=== PATIENT | female | born 2000 | race Caucasian/White ===

== ENCOUNTER 2020-07-01 13:40 | Inpatient (IN) | payer BC, OTHER, SELFPAY ==
[2020-07-01 14:12] VITALS: BP 135/87; BP 147/78; PULSE 120; PULSE 126; RESP 18; TEMP 36.9; O2SAT 97; BMI 22.4
--- NOTE | 2020-07-01 14:25 | PC.NURSE ---
PT CALM,COOPERATIVE,TEARFUL. CONCERNED ABOUT MISSING CLASSES. DENIES SI/HI AT THIS TIME. DEALING WITH DEPRESSION/ANXIETY FOR 6 YEARS
--- NOTE | 2020-07-01 14:29 | PC.NURSE ---
PT SEEN AT HER HOUSE BY CINDY. IS A BEDSEARCH
--- NOTE | 2020-07-01 15:22 | PC.NURSE ---
Report received. Pt sitting in bed at current. No complaints at this time. Calm and cooperative. Waiting to be medically cleared.
--- NOTE | 2020-07-01 15:22 | PC.NURSE ---
Delilah phone number [phone]
--- NOTE | 2020-07-01 16:01 | ED.PSYCH ---
HPI - Psych General Chief Complaint: Psychiatric Symptoms Stated Complaint: si/crisis Time Seen by Provider: 07/01/20 14:10 Source: patient Mode of arrival: ambulatory Limitations: no limitations History of Present Illness HPI Narrative: Patient presents to the ED for depression. Patient was seen by [facility] in the field to be admitted to for psych admission. Patient states yesterday in the night time she drank a bottle of wine and Percocet. MD complaint: feels depressed Related Data Allergies Allergy/AdvReac Type Severity Reaction Status Date / Time No Known Allergies Allergy Verified 07/01/20 14:29 Review of Systems Review of Systems: Yes all other systems are reviewed and are negative Constitutional: Constitutional: Reports as per HPI and Reports no additional constitutional complaints Eyes: Eyes: Reports as per HPI and Reports no additional eye complaints ENT: Reports system reviewed and no additional complaints, except as documented and Reports as per HPI Cardiovascular: Cardiovascular: Reports as per HPI and Reports no additional cardiovascular complaints Respiratory: Respiratory: Reports as per HPI and Reports no additional respiratory complaints Gastrointestinal: Gastrointestinal: Reports as per HPI and Reports no additional gastrointestinal complaints Genitourinary: Genitourinary: Reports no additional female genitourinary complaints and Reports as per HPI Musculoskeletal: Musculoskeletal: Reports no additional musculoskeletal complaints and Reports as per HPI Neurologic: Reports system reviewed and no additional complaints, except as documented and Reports as per HPI Psychiatric: Psychiatric: Reports no additional psychiatric complaints and Reports as per HPI PMF Past Medical History Medical History (Updated 07/01/20 @ 22:07 by HECTOR Iglesias) Anxiety Depression Social History Social History Alcohol intake: unknown Smoking Status: Never smoker Use of substances other than those prescribed or required for medical reasons: No Advance Directives: No Advance Directives Information Provided: No Physical Exam Vital Signs: Vital Signs: Last Vital Signs Temp 98.6 F 07/01/20 21:24 Pulse 102 H 07/01/20 21:24 Resp 15 07/01/20 21:24 BP 113/74 07/01/20 21:24 Pulse Ox 98 07/01/20 21:24 Body Mass Index 22.4 Const: General: cooperative, healthy appearing, comfortable, no acute distress, well developed, alert, awake and Physically active Orientation/consciousness: patient oriented x3 HENMT: Head: Yes normal to inspection, Yes No palpable skull fracture present, Yes normocephalic, Yes atraumatic, No abrasion, No Guerrier's sign, No contusion, No cranial bruits, No hematoma, No laceration, No occipital foramen tenderness, No palpable skull fracture, No raccoon eyes, No scalp lesion, No scalp tenderness, No Temporal artery tenderness present and No periorbital ecchymosis Eyes: General: appearance normal, both eyes and all related structures Neck: Neck: Yes normal visual inspection, Yes full ROM, Yes no lymphadenopathy, Yes no meningeal signs, Yes trachea midline, Yes supple and No tender Chest: Chest palpation & inspection: normal inspection of the chest and normal palpation of entire chest wall Resp: Effort & Inspection: normal respiratory effort and able to speak in complete sentences Auscultation: clear to auscultation bilaterally Cardio: Jugular venous distension: no JVD Heart sounds: S1 normal heart sound present and S2 normal heart sound present GI: Inspection: Yes normal to inspection and No abdominal wall ecchymosis Palpation (GI): Soft to palpation, not firm, nontender, no guarding and not rigid : General: No CVA tenderness and Yes no CVA tenderness Back/Spine/Pelvis: Back: no CVA tenderness, No CVA tenderness and No back tenderness Skin: General skin exam: no rashes or lesions noted and elasticity normal Neuro: General: patient oriented x3, no meningeal signs and CN's II-XI intact bilaterally Cranial nerves: Yes CN's II-XII intact bilaterally Extrem: General: Yes normal to inspection and Yes full ROM Psych: Other: Patient is depressed. Patient denies any active suicidal/homicidal thoughts Appearance: grossly normal, well kempt and not disheveled Course Course Course Narrative: Patient will have labs done and being Direct admit to . Reevaluation(s) Reevaluation #1: Patient labs normal. COVID swab negative. Patient waiting for bed. Sign-out and INTERNET ARCHITECT Candy Time: 22:06 MDM - Psych MDM Narrative Medical decision making narrative: Depression Lab Data Result diagrams: 07/01/20 15:51 07/01/20 15:51 Labs: Lab Results 07/01/20 07/01/20 07/01/20 Range/Units 15:51 15:51 15:51 WBC 12.7 H (4.8-10.8) X10*3/uL RBC 4.70 (4.20-5.50) X10*6/uL Hgb 13.9 (12.0-16.0) g/dl Hct 41.7 (37-47) % MCV 88.7 (80-98) fL MCH 29.6 (27.0-33.0) pg MCHC 33.3 (31.0-35.0) g/dl RDW 11.7 (11.0-16.0) % Plt Count 310 (160-400) X10*3/uL MPV 9.4 (9.4-12.3) fL Immature Gran % (Auto) 0.2 (0.0-0.4) % Neut % (Auto) 88.3 H (45-73) % Lymph % (Auto) 6.9 L (20-40) % Bartholomew % (Auto) 4.3 (2-11) % Eos % (Auto) 0.1 (0-4) % Baso % (Auto) 0.2 (0-2) % Lymph # (Auto) 0.9 L (1.2-4.9) X10*3/uL Bartholomew # (Auto) 0.6 (0.1-1.2) X10*3/uL Eos # (Auto) 0.0 (0.0-0.4) X10*3/uL Baso # (Auto) 0.0 (0.0-0.2) X10*3/uL Abs Immat Gran (auto) 0.03 (0.00-0.03) X10*3/uL Absolute Neuts (auto) 11.2 H (2.0-8.3) X10*3/uL Absolute Nucleated RBC 0.000 (0.0-0.012) X10*3/uL Nucleated RBC % (auto) 0.0 (0.0-0.2) /100WBC Sodium 139 (135-145) mmol/L Potassium 4.4 (3.3-5.1) mmol/L Chloride 104 (96-108) mmol/L Carbon Dioxide 22 (22-29) mmol/L Anion Gap 17 (12-20) BUN 10 (9-16) mg/dL Creatinine 0.63 (0.5-1.4) mg/dL Estim Creat Clear Calc 103.1 Estimated GFR > 60 Random Glucose 86 (60-115) mg/dL Calcium 9.3 (8.4-10.2) mg/dL Total Bilirubin 0.5 (0.0-1.0) mg/dL Direct Bilirubin < 0.2 (0.0-0.5) mg/dL AST 25 (5-31) U/L ALT 14 (0-31) U/L Alkaline Phosphatase 81 (39-117) U/L Total Protein 8.3 H (6.5-8.0) g/dL Albumin 4.9 (3.5-5.0) g/dL Urine Color Urine Appearance Urine pH (5.0-8.0) Ur Specific Osprey (1.005-1.025) Urine Protein (NEG-TRACE) MG/DL Urine Glucose (UA) (NEG) MG/DL Urine Ketones (NEG) MG/DL Urine Blood (NEG) Urine Nitrite (NEG) Ur Leukocyte Esterase (NEG) Urine Test (NEGATIVE) Urine Opiates Screen (Not Detect) Ur Barbiturates Screen (Not Detect) Ur Phencyclidine Scrn (Not Detect) Ur Amphetamines Screen (Not Detect) U Benzodiazepines Scrn (Not Detect) Urine Cocaine Screen (Not Detect) U Marijuana (THC) Screen (Not Detect) Ethyl Alcohol < 10 mg/dL COVID-19 (KIM) (Negative) COVID-19 Clin Com 07/01/20 07/01/20 07/01/20 Range/Units 16:41 17:17 17:17 WBC (4.8-10.8) X10*3/uL RBC (4.20-5.50) X10*6/uL Hgb (12.0-16.0) g/dl Hct (37-47) % MCV (80-98) fL MCH (27.0-33.0) pg MCHC (31.0-35.0) g/dl RDW (11.0-16.0) % Plt Count (160-400) X10*3/uL MPV (9.4-12.3) fL Immature Gran % (Auto) (0.0-0.4) % Neut % (Auto) (45-73) % Lymph % (Auto) (20-40) % Bartholomew % (Auto) (2-11) % Eos % (Auto) (0-4) % Baso % (Auto) (0-2) % Lymph # (Auto) (1.2-4.9) X10*3/uL Bartholomew # (Auto) (0.1-1.2) X10*3/uL Eos # (Auto) (0.0-0.4) X10*3/uL Baso # (Auto) (0.0-0.2) X10*3/uL Abs Immat Gran (auto) (0.00-0.03) X10*3/uL Absolute Neuts (auto) (2.0-8.3) X10*3/uL Absolute Nucleated RBC (0.0-0.012) X10*3/uL Nucleated RBC % (auto) (0.0-0.2) /100WBC Sodium (135-145) mmol/L Potassium (3.3-5.1) mmol/L Chloride (96-108) mmol/L Carbon Dioxide (22-29) mmol/L Anion Gap (12-20) BUN (9-16) mg/dL Creatinine (0.5-1.4) mg/dL Estim Creat Clear Calc Estimated GFR Random Glucose (60-115) mg/dL Calcium (8.4-10.2) mg/dL Total Bilirubin (0.0-1.0) mg/dL Direct Bilirubin (0.0-0.5) mg/dL AST (5-31) U/L ALT (0-31) U/L Alkaline Phosphatase (39-117) U/L Total Protein (6.5-8.0) g/dL Albumin (3.5-5.0) g/dL Urine Color Urine Appearance Urine pH (5.0-8.0) Ur Specific Osprey (1.005-1.025) Urine Protein (NEG-TRACE) MG/DL Urine Glucose (UA) (NEG) MG/DL Urine Ketones (NEG) MG/DL Urine Blood (NEG) Urine Nitrite (NEG) Ur Leukocyte Esterase (NEG) Urine Test NEGATIVE (NEGATIVE) Urine Opiates Screen POSITIVE H (Not Detect) Ur Barbiturates Screen Not Detected (Not Detect) Ur Phencyclidine Scrn Not Detected (Not Detect) Ur Amphetamines Screen Not Detected (Not Detect) U Benzodiazepines Scrn Not Detected (Not Detect) Urine Cocaine Screen Not Detected (Not Detect) U Marijuana (THC) Screen Not Detected (Not Detect) Ethyl Alcohol mg/dL COVID-19 (KIM) Negative (Negative) COVID-19 Clin Com See Note 07/01/20 Range/Units 17:17 WBC (4.8-10.8) X10*3/uL RBC (4.20-5.50) X10*6/uL Hgb (12.0-16.0) g/dl Hct (37-47) % MCV (80-98) fL MCH (27.0-33.0) pg MCHC (31.0-35.0) g/dl RDW (11.0-16.0) % Plt Count (160-400) X10*3/uL MPV (9.4-12.3) fL Immature Gran % (Auto) (0.0-0.4) % Neut % (Auto) (45-73) % Lymph % (Auto) (20-40) % Bartholomew % (Auto) (2-11) % Eos % (Auto) (0-4) % Baso % (Auto) (0-2) % Lymph # (Auto) (1.2-4.9) X10*3/uL Bartholomew # (Auto) (0.1-1.2) X10*3/uL Eos # (Auto) (0.0-0.4) X10*3/uL Baso # (Auto) (0.0-0.2) X10*3/uL Abs Immat Gran (auto) (0.00-0.03) X10*3/uL Absolute Neuts (auto) (2.0-8.3) X10*3/uL Absolute Nucleated RBC (0.0-0.012) X10*3/uL Nucleated RBC % (auto) (0.0-0.2) /100WBC Sodium (135-145) mmol/L Potassium (3.3-5.1) mmol/L Chloride (96-108) mmol/L Carbon Dioxide (22-29) mmol/L Anion Gap (12-20) BUN (9-16) mg/dL Creatinine (0.5-1.4) mg/dL Estim Creat Clear Calc Estimated GFR Random Glucose (60-115) mg/dL Calcium (8.4-10.2) mg/dL Total Bilirubin (0.0-1.0) mg/dL Direct Bilirubin (0.0-0.5) mg/dL AST (5-31) U/L ALT (0-31) U/L Alkaline Phosphatase (39-117) U/L Total Protein (6.5-8.0) g/dL Albumin (3.5-5.0) g/dL Urine Color YELLOW Urine Appearance CLEAR Urine pH 6.0 (5.0-8.0) Ur Specific Osprey 1.025 (1.005-1.025) Urine Protein NEG (NEG-TRACE) MG/DL Urine Glucose (UA) NEG (NEG) MG/DL Urine Ketones 40 (NEG) MG/DL Urine Blood NEG (NEG) Urine Nitrite NEG (NEG) Ur Leukocyte Esterase NEG (NEG) Urine Test (NEGATIVE) Urine Opiates Screen (Not Detect) Ur Barbiturates Screen (Not Detect) Ur Phencyclidine Scrn (Not Detect) Ur Amphetamines Screen (Not Detect) U Benzodiazepines Scrn (Not Detect) Urine Cocaine Screen (Not Detect) U Marijuana (THC) Screen (Not Detect) Ethyl Alcohol mg/dL COVID-19 (KIM) (Negative) COVID-19 Clin Com Discharge Plan Discharge Clinical Impression: Depression
[2020-07-01 16:02] LABS: Basophils Percent Auto 0.2 % (0-2); Eosinophils Percent Auto 0.1 % (0-4); Hematocrit 41.7 % (37-47); Hemoglobin 13.9 g/dl (12.0-16.0); Imm Gran Abs Auto 0.03 X10*3/uL (0.00-0.03); Imm Gran Pct Auto 0.2 % (0.0-0.4); Lymphocytes Absolute Auto 0.9 X10*3/uL (1.2-4.9); Lymphocytes Percent Auto 6.9 % (20-40); MANUAL DIFF FLAG NO; Mean Corpuscular HGB Conc 33.3 g/dl (31.0-35.0); Mean Corpuscular Hemoglobin 29.6 pg (27.0-33.0); Mean Corpuscular Volume 88.7 fL (80-98); Mean Platelet Volume 9.4 fL (9.4-12.3); Monocytes Absolute Auto 0.6 X10*3/uL (0.1-1.2); Monocytes Percent Auto 4.3 % (2-11); Neutrophils Absolute Auto 11.2 X10*3/uL (2.0-8.3); Neutrophils Percent Auto 88.3 % (45-73); Platelet Count 310 X10*3/uL (160-400); Red Cell Distribution Width 11.7 % (11.0-16.0); White Blood Count 12.7 X10*3/uL (4.8-10.8)
[2020-07-01 16:35] LABS: Alanine Aminotransferase 14 U/L (0-31); Albumin Level 4.9 g/dL (3.5-5.0); Alkaline Phosphatase 81 U/L (39-117); Anion Gap 17 (12-20); Aspartate Amino Transferase 25 U/L (5-31); Bilirubin Direct < 0.2 mg/dL (0.0-0.5); Bilirubin Total 0.5 mg/dL (0.0-1.0); Blood Urea Nitrogen 10 mg/dL (9-16); Calcium 9.3 mg/dL (8.4-10.2); Carbon Dioxide 22 mmol/L (22-29); Chloride 104 mmol/L (96-108); Creatinine Clr Calc Pharmacy 103.1; Estimated Glomerular Filt Rate > 60; Glucose Random 86 mg/dL (60-115); Potassium 4.4 mmol/L (3.3-5.1); Sodium 139 mmol/L (135-145); Total Protein 8.3 g/dL (6.5-8.0)
[2020-07-01 16:40] LABS: Ethanol < 10 mg/dL
[2020-07-01 17:28] LABS: COVID-19 Test Negative (Negative); IDNOW Serial# 9DD0AD1C
[2020-07-01 17:35] LABS: Glucose Urine UA NEG (NEG); Leukocyte Esterase Urine NEG (NEG); Nitrite Urine NEG (NEG); Specific Gravity - Urine 1.025 (1.005-1.025); Urine Blood NEG (NEG); Urine Ketones 40 MG/DL (NEG); Urine Protein NEG (NEG-TRACE)
[2020-07-01 17:38] LABS: Appearance Urine CLEAR; Color Urine YELLOW; UPreg QC Valid YES; Urine Pregnancy NEGATIVE (NEGATIVE)
[2020-07-01 17:55] LABS: Amphetamine Screen Urine Not Detected (Not Detect); Barbiturates, Urine Not Detected (Not Detect); Benzodiazepines Screen Urine Not Detected (Not Detect); Cannabinoid Screen Urine Not Detected (Not Detect); Cocaine Screen Urine Not Detected (Not Detect); Opiate Screen Urine POSITIVE (Not Detect); Phencyclidine Screen Urine Not Detected (Not Detect)
[2020-07-01 18:28] VITALS: BP 116/83; PULSE 95; RESP 18; TEMP 37.5; O2SAT 97
--- NOTE | 2020-07-01 19:39 | PC.NURSE ---
Patient in bed calm and quiet, was on phone briefly talking to her mother, per report patient is going to [facility], no update so far from [facility], denied distress, will continue to monitor.
[2020-07-01 21:24] VITALS: BP 113/74; PULSE 102; RESP 15; TEMP 37; O2SAT 98
--- NOTE | 2020-07-02 07:45 | PC.NURSE ---
Report received from CAROLINA Shukla. Pt resting, resp unlabored.
[2020-07-02 08:50] VITALS: BP 115/70; PULSE 95; RESP 16; TEMP 36.8; O2SAT 98
[2020-07-02 10:00] VITALS: RESP 20
--- NOTE | 2020-07-02 11:24 | PC.NURSE ---
Pt awakened to evaluate. Pt appears slightly drowsy and reports feeling sleepy but denies any other concerns at this time.
[2020-07-02 12:00] VITALS: RESP 20
--- NOTE | 2020-07-02 12:22 | PC.NURSE ---
Report given to CAROLINA Valentine on [facility]
--- NOTE | 2020-07-02 14:26 | PC.NURSE ---
CARE team in transfer pt to [facility]. Pt alert, cooperative no concerns reported on transfer.
[2020-07-02 16:16] VITALS: BMI 22.9
--- NOTE | 2020-07-02 16:20 | PC.ADMIT ---
19 year old female DX: Major Depressive Disorder, single episode, severe. A+O x3, easily engaged, full range of affect. Good eye contact, good attn to ADL. Referred for admission by N/CARE team. Arrived to hospital 07/01/2020 following suicide attempt by ingesting 4 Percocet and 3/4 bottle of wine. Patient called 911 following overdose. Patient reports this is 1st hospital admission, no psychiatrist at this time, has engaged a therapist however has only had a couple of contacts through on line. Not currently on any medications. Continues to report suicidal thoughts, described as passive I don't want to live but I don't want to kill myself either . Reports multiple stressors including remote learning, impaired support system, ongoing depression and anxiety. Thoughts clear, linear and organized. Denies perceptual disturbances, denies A/V hallucinations. Denies substance abuse, tox screen + for opiate. COVID negative. No medical problems, NKA, NKDA. Oriented to unit, placed on 15 minute safety checks. See crisis evaluation / nursing assessment for further details.
[2020-07-02 18:00] VITALS: BP 125/78; PULSE 81; RESP 16; TEMP 36.8; O2SAT 95
[2020-07-03 06:35] VITALS: BP 113/61; PULSE 77; RESP 16; TEMP 36.6; O2SAT 98
[2020-07-03 08:14] LABS: Estimated Average Glucose 91 mg/dL; Hemoglobin A1c % 4.8 %
[2020-07-03 08:29] LABS: Cholesterol 157 mg/dL; HDL Cholesterol 42 mg/dL; LDL Cholesterol Calculated 104 mg/dl; Triglycerides 57 mg/dL
[2020-07-03 08:51] LABS: Free T4 (Free Thyroxine) 0.94 ng/dL (0.71-1.85); Thyroid Stimulating Hormone 1.97 uIU/mL (0.32-4.0)
[2020-07-03 09:04] LABS: Folate 16.9 ng/mL (> or = 4.0); Vitamin B12 271 pg/mL (200-900)
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
[2020-07-03 18:00] VITALS: BP 131/71; PULSE 106; TEMP 36.6
[2020-07-04 06:35] VITALS: BP 112/69; PULSE 84; RESP 16; TEMP 37.1; O2SAT 98
[2020-07-04] MEDS: hydrOXYzine HCL 25 MG TABLET PO ×2 (08:46→22:20)
[2020-07-04] MEDS: Sertraline HCL 25 MG TABLET PO (08:46)
--- NOTE | 2020-07-04 13:35 | HO.PSYCHPN ---
Subjective Subjective Date of Service: 07/04/20 Reason For Visit: DEPRESSION Subjective Notes: Conditional Voluntary Interim History: Pt continues to endorse depressed mood. She also endorses anhedonia, low energy. She reports sleeping better last night. She does report decrease suicidal thoughts and denies any plan or intent. She had hydroxyzine this morning for anxiety but too sedating. We discussed increasing sertraline to 50mg po daily. MSE Appearance: casually groomed, fair hygiene, in NAD Behavior: calm, cooperative Psychomotor: no agitation or retardation noted Speech: clear, normal rate/rhythm/volume, spontaneous TP: linear TC: no signs of psychosis, feeling depressed, passive SI, no plan Mood: depressed Affect:slightly brighter than reported mood AH/VH:none Delusions:none Insight/judgment:fair x 2. Memory/cog: alert, oriented x 3. grossly intact to conversational testing. Medication Compliance: Yes Side effects from medications: No Review of Systems Review of Systems Yes all other systems are reviewed and are negative (denies) Constitutional: Reports as per HPI and Reports no additional constitutional complaints Eyes: Reports as per HPI and Reports no additional eye complaints Reports system reviewed and no additional complaints, except as documented and Reports as per HPI Cardiovascular: Reports as per HPI and Reports no additional cardiovascular complaints Respiratory: Reports as per HPI and Reports no additional respiratory complaints Gastrointestinal: Reports as per HPI and Reports no additional gastrointestinal complaints Musculoskeletal: Reports no additional musculoskeletal complaints and Reports as per HPI Reports system reviewed and no additional complaints, except as documented, Reports as per HPI and Reports behavioral changes Psychiatric: Reports no additional psychiatric complaints, Reports as per HPI, Reports abnormal sleep pattern, Reports anxiety, Reports behavioral changes, Reports change in appetite, Reports depression, Reports difficulty concentrating, Reports anhedonia, Reports panic attacks and Reports suicidal ideation (s/p attempt) Diagnostics Vital Signs (24Hr): Vital Signs - 24 hr 07/03/20 18:00 07/04/20 06:35 Temperature 98 F 98.8 F Pulse Rate 106 H 84 Respiratory Rate 16 Blood Pressure 131/71 112/69 Pulse Oximetry 98 Body Mass Index 22.9 Labs Results: 07/01/20 15:51 07/01/20 15:51 Labs: Laboratory Results - last 48 hr 07/03/20 07/03/20 07/03/20 07:54 07:54 07:54 Estimat Average Glucose 91 Hemoglobin A1c % 4.8 Triglycerides 57 Cholesterol 157 LDL Cholesterol, Calc 104 HDL Cholesterol 42 Vitamin B12 271 Folate 16.9 TSH 1.97 Free T4 0.94 Medications Medications Current Medications Generic Name Dose Route Start Last Admin Trade Name Freq PRN Reason Stop Dose Admin Acetaminophen 650 mg 07/02/20 13:01 Acetaminophen 325 Mg Tablet PO Q6H PRN Headache/Pain Mild Scale (1-3) Al Hydroxide/Mg Hydroxide 30 ml 07/02/20 13:01 Magnesium Hydrox/Alum Hydrox 30 Ml Oral.Susp PO Q6H PRN Heartburn/Nausea Hydroxyzine HCl 25 mg 07/02/20 13:01 Hydroxyzine Hcl 25 Mg Tablet PO BEDTIME PRN Anxiety Magnesium Hydroxide 30 ml 07/02/20 13:01 Milk Of Magnesia 30 Ml Oral.Susp PO DAILY PRN Constipation Sertraline HCl 25 mg 07/04/20 09:00 07/04/20 08:46 Sertraline Hcl 25 Mg Tablet PO 25 mg DAILY ALIA Administration Trazodone HCl 50 mg 07/02/20 13:01 Trazodone Hcl 50 Mg Tablet PO BEDTIME PRN Insomnia Allergies Allergies Allergy/AdvReac Type Severity Reaction Status Date / Time No Known Allergies Allergy Verified 07/01/20 14:29 Assessment & Plan Assessment & Plan (1) Recurrent major depression-severe: Status: Acute Code(s): F33.2 - Major depressive disorder, recurrent severe without psychotic features Assessment and Plan: - increase Sertraline 50 mg daily -Hydroxyzine 25 mg bid prn anxiety (2) PTSD (post-traumatic stress disorder): Status: Acute Code(s): F43.10 - Post-traumatic stress disorder, unspecified Greater than 50% of the session was spent on counseling and/or coordination of care Reason for contiued inpatient stay Substantial Risk for: harm to self
[2020-07-04 18:00] VITALS: BP 119/66; PULSE 99; TEMP 36.6
[2020-07-05 06:15] VITALS: BP 117/65; PULSE 75; RESP 16; TEMP 36.4; O2SAT 98
[2020-07-05] MEDS: Sertraline HCL 50 MG TABLET PO (09:02)
--- NOTE | 2020-07-05 11:01 | HO.PSYCHPN ---
Subjective Subjective Date of Service: 07/05/20 Reason For Visit: DEPRESSION Interim History: Pt continues to endorse depressed mood. She also endorses anhedonia, low energy. She reports sleeping better last night. She does report decrease suicidal thoughts and denies any plan or intent. She had hydroxyzine this morning for anxiety but too sedating. We discussed increasing sertraline to 50mg po daily. MSE Appearance: casually groomed, fair hygiene, in NAD Behavior: calm, cooperative Psychomotor: no agitation or retardation noted Speech: clear, normal rate/rhythm/volume, spontaneous TP: linear TC: no signs of psychosis, feeling depressed, passive SI, no plan Mood: depressed Affect:slightly brighter than reported mood AH/VH:none Delusions:none Insight/judgment:fair x 2. Memory/cog: alert, oriented x 3. grossly intact to conversational testing. Review of Systems Review of Systems Yes all other systems are reviewed and are negative (denies) Constitutional: Reports as per HPI and Reports no additional constitutional complaints Eyes: Reports as per HPI and Reports no additional eye complaints Reports system reviewed and no additional complaints, except as documented and Reports as per HPI Cardiovascular: Reports as per HPI and Reports no additional cardiovascular complaints Respiratory: Reports as per HPI and Reports no additional respiratory complaints Gastrointestinal: Reports as per HPI and Reports no additional gastrointestinal complaints Musculoskeletal: Reports no additional musculoskeletal complaints and Reports as per HPI Reports system reviewed and no additional complaints, except as documented, Reports as per HPI and Reports behavioral changes Psychiatric: Reports no additional psychiatric complaints, Reports as per HPI, Reports abnormal sleep pattern, Reports anxiety, Reports behavioral changes, Reports change in appetite, Reports depression, Reports difficulty concentrating, Reports anhedonia, Reports panic attacks and Reports suicidal ideation (s/p attempt) Diagnostics Vital Signs (24Hr): Vital Signs - 24 hr 07/04/20 18:00 07/05/20 06:15 Temperature 98 F 97.5 F Pulse Rate 99 75 Respiratory Rate 16 Blood Pressure 119/66 117/65 Pulse Oximetry 98 Body Mass Index 22.9 Labs Results: 07/01/20 15:51 07/01/20 15:51 Medications Medications Current Medications Generic Name Dose Route Start Last Admin Trade Name Freq PRN Reason Stop Dose Admin Acetaminophen 650 mg 07/02/20 13:01 Acetaminophen 325 Mg Tablet PO Q6H PRN Headache/Pain Mild Scale (1-3) Al Hydroxide/Mg Hydroxide 30 ml 07/02/20 13:01 Magnesium Hydrox/Alum Hydrox 30 Ml Oral.Susp PO Q6H PRN Heartburn/Nausea Hydroxyzine HCl 25 mg 07/02/20 13:01 07/04/20 22:20 Hydroxyzine Hcl 25 Mg Tablet PO 25 mg BEDTIME PRN Administration Anxiety Magnesium Hydroxide 30 ml 07/02/20 13:01 Milk Of Magnesia 30 Ml Oral.Susp PO DAILY PRN Constipation Sertraline HCl 50 mg 07/05/20 09:00 07/05/20 09:02 Sertraline Hcl 50 Mg Tablet PO 50 mg DAILY ALIA Administration Trazodone HCl 50 mg 07/02/20 13:01 Trazodone Hcl 50 Mg Tablet PO BEDTIME PRN Insomnia Allergies Allergies Allergy/AdvReac Type Severity Reaction Status Date / Time No Known Allergies Allergy Verified 07/01/20 14:29 Assessment & Plan Assessment & Plan (1) Recurrent major depression-severe: Status: Acute Code(s): F33.2 - Major depressive disorder, recurrent severe without psychotic features Assessment and Plan: - Continue Sertraline 50 mg daily -Hydroxyzine 25 mg bid prn anxiety- too sedating (2) PTSD (post-traumatic stress disorder): Status: Acute Code(s): F43.10 - Post-traumatic stress disorder, unspecified Greater than 50% of the session was spent on counseling and/or coordination of care Reason for contiued inpatient stay Substantial Risk for: harm to self
[2020-07-05 18:00] VITALS: BP 134/77; PULSE 86; TEMP 37.1
[2020-07-05] MEDS: hydrOXYzine HCL 25 MG TABLET PO (22:49)
[2020-07-06 06:35] VITALS: BP 124/71; PULSE 80; RESP 14; TEMP 37.1; O2SAT 97
[2020-07-06] MEDS: Sertraline HCL 50 MG TABLET PO (08:33)
[2020-07-06] MEDS: Gabapentin 100 MG CAPSULE PO ×2 (13:37→22:02)
[2020-07-06] MEDS: Flu Vacc QS2020-21(6mos up)/PF 0.5 ML SYRINGE IM (16:34)
--- NOTE | 2020-07-06 17:34 | HO.PSYCHPN ---
Subjective Subjective Date of Service: 07/06/20 Reason For Visit: DEPRESSION Subjective Notes: Conditional Voluntary Interim History: Tolerating Sertraline which was titrated over the weekend. Anxiety remains high. Discussed Gabapentin titration. Finds hydroxyzine too sedating-review of clonidine and discussed sertraline being able to target anxiety however time is needed for efficacy. Discussed precipitants to attempt. Pt remains somewhat closed-discussed that sx have been present since age 13 and family was struggling with their own sx and did not have time to notice she was having difficulty. In addition, she attempted to hide this. Discussed mother calling her over the weekend to discuss her issues and concerns without focus being on pt. Medication Compliance: Yes Side effects from medications: No Attending Groups: Yes Review of Systems Review of Systems Yes all other systems are reviewed and are negative (denies) Psychiatric: Reports anxiety and Reports depression Mental Status Exam Mental Status Exam Patient Appearance: Appropriate Patient Orientation: Person, Place, Time and Situation Level of Consciousness: Alert Patient Behavior: Talkative, Anxious and Good Eye Contact Mood Description: Depressed and Anxious Affect Description: Flat Patient Cognition Impaired: No Ability to Follow Directions: Good Speech Pattern: Spontaneous Speech Memory Description: Intact Hallucinations: None Delusions: Not Present Thought Process: Intact Thought Content: positive for Intact, positive for Logical and positive for Suicidal Ideation (passive, no current plan or intent) Depressive Symptoms: Increased Anxiety, Insomnia, Difficulty Sleeping, Changes in Appetite, Loss of Int. in Activity, Hopelessness, Feelings of Guilt, Unhappiness, Increased Fatigue, Thoughts of /Suicide (passive) and Low Self Esteem Judgement: Fair Diagnostics Vital Signs (24Hr): Vital Signs - 24 hr 07/05/20 18:00 07/06/20 06:35 Temperature 98.8 F 98.7 F Pulse Rate 86 80 Respiratory Rate 14 Blood Pressure 134/77 124/71 Pulse Oximetry 97 Body Mass Index 22.9 Labs Results: 07/01/20 15:51 07/01/20 15:51 Medications Medications Current Medications Generic Name Dose Route Start Last Admin Trade Name Freq PRN Reason Stop Dose Admin Acetaminophen 650 mg 07/02/20 13:01 Acetaminophen 325 Mg Tablet PO Q6H PRN Headache/Pain Mild Scale (1-3) Al Hydroxide/Mg Hydroxide 30 ml 07/02/20 13:01 Magnesium Hydrox/Alum Hydrox 30 Ml Oral.Susp PO Q6H PRN Heartburn/Nausea Gabapentin 100 mg 07/06/20 12:00 07/06/20 13:37 Gabapentin 100 Mg Capsule PO 100 mg BID ALIA Administration Magnesium Hydroxide 30 ml 07/02/20 13:01 Milk Of Magnesia 30 Ml Oral.Susp PO DAILY PRN Constipation Sertraline HCl 50 mg 07/05/20 09:00 07/06/20 08:33 Sertraline Hcl 50 Mg Tablet PO 50 mg DAILY ALIA Administration Trazodone HCl 50 mg 07/02/20 13:01 Trazodone Hcl 50 Mg Tablet PO BEDTIME PRN Insomnia Allergies Allergies Allergy/AdvReac Type Severity Reaction Status Date / Time No Known Allergies Allergy Verified 07/01/20 14:29 Assessment & Plan Assessment & Plan (1) Recurrent major depression-severe: Status: Acute Code(s): F33.2 - Major depressive disorder, recurrent severe without psychotic features Assessment and Plan: Gabapentin 100 mg bid to target anxiety (2) PTSD (post-traumatic stress disorder): Status: Acute Code(s): F43.10 - Post-traumatic stress disorder, unspecified Greater than 50% of the session was spent on counseling and/or coordination of care Reason for contiued inpatient stay Substantial Risk for: harm to self, inability to function and rapid decompensation
[2020-07-06 18:00] VITALS: BP 131/79; PULSE 107; TEMP 36.4
[2020-07-07 06:30] VITALS: BP 124/66; PULSE 79; RESP 16; TEMP 36.5; O2SAT 98
[2020-07-07] MEDS: Sertraline HCL 50 MG TABLET PO (09:14)
[2020-07-07] MEDS: Gabapentin 100 MG CAPSULE PO ×2 (09:14→20:59)
--- NOTE | 2020-07-07 16:01 | HO.PSYCHPN ---
Subjective Subjective Date of Service: 07/07/20 Reason For Visit: DEPRESSION Subjective Notes: Conditional Voluntary Interim History: Anxiety sx persist. Tolerating gabapentin however believes she needs an increase Medication Compliance: Yes Side effects from medications: No Attending Groups: Yes Review of Systems Review of Systems Yes all other systems are reviewed and are negative Psychiatric: Reports anxiety and Reports depression Mental Status Exam Mental Status Exam Patient Appearance: Appropriate Patient Orientation: Person, Place, Time and Situation Level of Consciousness: Alert Patient Behavior: Appropriate and Talkative Mood Description: Anxious Affect Description: Anxious Patient Cognition Impaired: No Ability to Follow Directions: Good Speech Pattern: Spontaneous Speech Memory Description: Intact Hallucinations: None Delusions: Not Present Thought Process: Intact Thought Content: positive for Intact Depressive Symptoms: Increased Anxiety Judgement: Fair Diagnostics Vital Signs (24Hr): Vital Signs - 24 hr 07/06/20 18:00 07/07/20 06:30 Temperature 97.6 F 97.7 F Pulse Rate 107 H 79 Respiratory Rate 16 Blood Pressure 131/79 124/66 Pulse Oximetry 98 Body Mass Index 22.9 Labs Results: 07/01/20 15:51 07/01/20 15:51 Medications Medications Current Medications Generic Name Dose Route Start Last Admin Trade Name Freq PRN Reason Stop Dose Admin Acetaminophen 650 mg 07/02/20 13:01 Acetaminophen 325 Mg Tablet PO Q6H PRN Headache/Pain Mild Scale (1-3) Al Hydroxide/Mg Hydroxide 30 ml 07/02/20 13:01 Magnesium Hydrox/Alum Hydrox 30 Ml Oral.Susp PO Q6H PRN Heartburn/Nausea Gabapentin 100 mg 07/06/20 12:00 07/07/20 09:14 Gabapentin 100 Mg Capsule PO 100 mg BID ALIA Administration Magnesium Hydroxide 30 ml 07/02/20 13:01 Milk Of Magnesia 30 Ml Oral.Susp PO DAILY PRN Constipation Sertraline HCl 50 mg 07/05/20 09:00 07/07/20 09:14 Sertraline Hcl 50 Mg Tablet PO 50 mg DAILY ALIA Administration Trazodone HCl 50 mg 07/02/20 13:01 Trazodone Hcl 50 Mg Tablet PO BEDTIME PRN Insomnia Allergies Allergies Allergy/AdvReac Type Severity Reaction Status Date / Time No Known Allergies Allergy Verified 07/01/20 14:29 Assessment & Plan Assessment & Plan (1) PTSD (post-traumatic stress disorder): Status: Acute Code(s): F43.10 - Post-traumatic stress disorder, unspecified (2) Recurrent major depression-severe: Status: Acute Code(s): F33.2 - Major depressive disorder, recurrent severe without psychotic features Assessment and Plan: -Increase Gabapentin to 100 mg tid Greater than 50% of the session was spent on counseling and/or coordination of care Reason for contiued inpatient stay Substantial Risk for: harm to self and rapid decompensation
[2020-07-07 18:00] VITALS: BP 129/83; PULSE 108; TEMP 37.1
[2020-07-08 06:00] VITALS: BP 112/59; PULSE 99; TEMP 37.1
[2020-07-08] MEDS: Gabapentin 100 MG CAPSULE PO ×3 (08:37→23:05)
[2020-07-08] MEDS: Sertraline HCL 50 MG TABLET PO (08:37)
--- NOTE | 2020-07-08 14:35 | HO.PSYCHPN ---
Subjective Subjective Date of Service: 07/08/20 Reason For Visit: DEPRESSION Subjective Notes: Conditional Voluntary Interim History: Reports she is tolerating Sertraline with some nausea when taken on an empty stomach. Appetite overall is decreased. Some anxiety relief with Gabapentin, dose increase result today she is unsure of at this time. Reports sleep latency symptoms-1.15 hours to fall asleep-Sertraline in a.m. Declines Trazodone, Remeron, Seroquel, Benzo temporary addendum. Asked her to consider Abilify augment. Discussed team concerns with Rachell today-unwillingness to share with family her attempt and sx of depression to increase supports, plans to use her spring break next week to catch up on course work she is behind on,concern she is in a similiar place prior to her recent attempt. Pt agreed-states nothing has changed. 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 Reports feeling overwhelmed with peer judgment -constant worry that she is being evaluated by her age group for her clothing, looks, dialogue-discussed being almost immobile when at school-only made one friend, was unable to join groups of interest. Reports feeling stuck and SI has only changed in that it did not work, minimal relief and now the symptoms/issues/problems remain. Discussed who in the family can she identify as being closest to-she identifies her brother-she did text him about her situation but has not heard from him. She plans to call him today as it is his birthday-discussed approaching the subject of asking him if he could be a personal computer specialist for her to reach out to when feeling depressed, unsafe. She will explore and asks that we have an opportunity to talk with him if he is willing which we will arrange. Also, discussed her school performance-feeling overwhelmed with 5 courses and what is required-worries she will fail (on full scholarship). Discussed options of requesting [employer] with extension or withdrawl with return to campus in Fall 2020. Tearful with this discussion-believes she will need to withdraw. Asked her to find her advisors contact information and we will contact Adelso Ochoa on 07/09/20 with pt to discuss. Pt asking about discharge on Monday-asked her to continue to remain in pt until we have improved sx mgt, and to consider PHP upon discharge. Although difficult, pt reporting feeling some relief at the end of our discussion. Medication Compliance: Yes Side effects from medications: Yes (as noted) Attending Groups: Yes Review of Systems Review of Systems Yes all other systems are reviewed and are negative Psychiatric: Reports abnormal sleep pattern, Reports anxiety, Reports change in appetite, Reports depression, Reports difficulty concentrating, Reports hopelessness, Reports anhedonia and Reports suicidal ideation (persists-passive currently, but no real changes ) Mental Status Exam Mental Status Exam Patient Appearance: Appropriate Patient Orientation: Person, Place, Time and Situation Level of Consciousness: Alert Patient Behavior: Appropriate, Talkative, Passive, Anxious, Fearful, Fatigued, Distractible, Isolative, Good Eye Contact and Crying (tearful) Mood Description: Withdrawn, Depressed, Fearful, Anxious, Sad, Nervous and Apprehensive Affect Description: Flat Patient Cognition Impaired: No Ability to Follow Directions: Good Speech Pattern: Perseverating and Spontaneous Speech Memory Description: Intact Hallucinations: None Delusions: Not Present Perceptual Disturbances: Depersonalization and Derealization Thought Process: Distracted and Rumination Thought Content: positive for Obsessional Thoughts, positive for Circumstantial, positive for Perseveration, positive for Preoccupation, positive for Logical and positive for Suicidal Ideation (passive today) Depressive Symptoms: Increased Anxiety, Diff. Making Decisions, Difficulty Sleeping, Changes in Appetite, Feelings of Worthlessness, Hopelessness, Isolating-Friends/Family, Unhappiness and Thoughts of /Suicide (passive) Judgement: Fair Diagnostics Vital Signs (24Hr): Vital Signs - 24 hr 07/07/20 18:00 07/08/20 06:00 Temperature 98.8 F 98.8 F Pulse Rate 108 H 99 Blood Pressure 129/83 112/59 L Body Mass Index 22.9 Labs Results: 07/01/20 15:51 07/01/20 15:51 Medications Medications Current Medications Generic Name Dose Route Start Last Admin Trade Name Freq PRN Reason Stop Dose Admin Acetaminophen 650 mg 07/02/20 13:01 Acetaminophen 325 Mg Tablet PO Q6H PRN Headache/Pain Mild Scale (1-3) Al Hydroxide/Mg Hydroxide 30 ml 07/02/20 13:01 Magnesium Hydrox/Alum Hydrox 30 Ml Oral.Susp PO Q6H PRN Heartburn/Nausea Gabapentin 100 mg 07/07/20 21:00 07/08/20 08:37 Gabapentin 100 Mg Capsule PO 100 mg TID ALIA Administration Magnesium Hydroxide 30 ml 07/02/20 13:01 Milk Of Magnesia 30 Ml Oral.Susp PO DAILY PRN Constipation Sertraline HCl 50 mg 07/05/20 09:00 07/08/20 08:37 Sertraline Hcl 50 Mg Tablet PO 50 mg DAILY ALIA Administration Trazodone HCl 50 mg 07/02/20 13:01 Trazodone Hcl 50 Mg Tablet PO BEDTIME PRN Insomnia Allergies Allergies Allergy/AdvReac Type Severity Reaction Status Date / Time No Known Allergies Allergy Verified 07/01/20 14:29 Assessment & Plan Assessment & Plan (1) PTSD (post-traumatic stress disorder): Status: Acute Code(s): F43.10 - Post-traumatic stress disorder, unspecified Assessment and Plan: -Continue Gabapentin for anxiety mgt (2) Recurrent major depression-severe: Status: Acute Code(s): F33.2 - Major depressive disorder, recurrent severe without psychotic features Assessment and Plan: -Continue Sertralne-targeting depression, ptsd, social/general anxiety, obsessive sx -?Abilify trial- High suicide risk given combined symptoms, lack of feeling of value, lack of support and obsessive anxiety. -Pt to talk with her brother today for possible collateral. She is still thinking about allowing uncle to be informed about her attempt -Pt and software writer will contact her advisor on 07/08 to discuss options for withdrawl from courses or extensions for her to return in Fall 2020 from medical leave we will initiate tomorrow. Greater than 50% of the session was spent on counseling and/or coordination of care Reason for contiued inpatient stay Substantial Risk for: harm to self and rapid decompensation
[2020-07-08 17:00] VITALS: BP 136/86; PULSE 87; TEMP 36.8
[2020-07-08] MEDS: traZODone HCL 50 MG TABLET PO (23:08)
[2020-07-09 06:30] VITALS: BP 114/68; PULSE 85; RESP 16; TEMP 36.5; O2SAT 98
[2020-07-09] MEDS: Gabapentin 100 MG CAPSULE PO ×3 (08:59→21:15)
[2020-07-09] MEDS: Sertraline HCL 50 MG TABLET PO (08:59)
[2020-07-09 16:55] VITALS: BP 130/78; PULSE 79; TEMP 36.8
--- NOTE | 2020-07-09 17:45 | P.PNPSI_ITS ---
Subjective Subjective Date of Service: 07/10/20 Reason For Visit: DEPRESSION Subjective Notes: Conditional Voluntary Interim History: Pt willing to trial Abilify augmentation. Discussion with pt and Michela CHAVARRIA regarding requesting more time for course work completion. Pt's questions include effect on scholarship, what would pt need to do, what documenation would we need to provide. Message left for pt's advisor and drew, Adelso Ochoa [phone] to discuss options. Medication Compliance: Yes Side effects from medications: No Attending Groups: Yes Review of Systems Review of Systems Yes all other systems are reviewed and are negative Psychiatric: Reports anxiety, Reports depression, Reports difficulty concentrating, Reports hopelessness, Reports anhedonia, Reports panic attacks and Reports suicidal ideation Mental Status Exam Mental Status Exam Patient Appearance: Appropriate Patient Orientation: Person, Place, Time and Situation Level of Consciousness: Alert Patient Behavior: Appropriate, Talkative and Good Eye Contact Mood Description: Depressed and Anxious Affect Description: Flat Patient Cognition Impaired: No Ability to Follow Directions: Good Speech Pattern: Spontaneous Speech Memory Description: Intact Hallucinations: None Delusions: Not Present Thought Process: Intact Thought Content: positive for Intact, positive for Circumstantial, positive for Goal Oriented, positive for Perseveration and positive for Suicidal Ideation Depressive Symptoms: Increased Anxiety, Diff. Making Decisions, Hopelessness, Feelings of Guilt, Unhappiness, Increased Fatigue, Low Self Esteem and Difficulty Concentrating Judgement: Fair Diagnostics Vital Signs (24Hr): Vital Signs - 24 hr 07/09/20 06:30 07/09/20 16:55 Temperature 97.7 F 98.2 F Pulse Rate 85 79 Respiratory Rate 16 Blood Pressure 114/68 130/78 Pulse Oximetry 98 Body Mass Index 22.9 Labs Results: 07/01/20 15:51 07/01/20 15:51 Medications Medications Current Medications Generic Name Dose Route Start Last Admin Trade Name Freq PRN Reason Stop Dose Admin Acetaminophen 650 mg 07/02/20 13:01 Acetaminophen 325 Mg Tablet PO Q6H PRN Headache/Pain Mild Scale (1-3) Al Hydroxide/Mg Hydroxide 30 ml 07/02/20 13:01 Magnesium Hydrox/Alum Hydrox 30 Ml Oral.Susp PO Q6H PRN Heartburn/Nausea Aripiprazole 2 mg 07/09/20 21:00 Aripiprazole 2 Mg Tablet PO BEDTIME ALIA Gabapentin 100 mg 07/07/20 21:00 07/09/20 15:36 Gabapentin 100 Mg Capsule PO 100 mg TID ALIA Administration Magnesium Hydroxide 30 ml 07/02/20 13:01 Milk Of Magnesia 30 Ml Oral.Susp PO DAILY PRN Constipation Sertraline HCl 50 mg 07/05/20 09:00 07/09/20 08:59 Sertraline Hcl 50 Mg Tablet PO 50 mg DAILY ALIA Administration Trazodone HCl 50 mg 07/02/20 13:01 07/08/20 23:08 Trazodone Hcl 50 Mg Tablet PO 50 mg BEDTIME PRN Administration Insomnia Allergies Allergies Allergy/AdvReac Type Severity Reaction Status Date / Time No Known Allergies Allergy Verified 07/01/20 14:29 Assessment & Plan Assessment & Plan (1) PTSD (post-traumatic stress disorder): Status: Acute Code(s): F43.10 - Post-traumatic stress disorder, unspecified (2) Recurrent major depression-severe: Status: Acute Code(s): F33.2 - Major depressive disorder, recurrent severe without psychotic features Greater than 50% of the session was spent on counseling and/or coordination of care Reason for contiued inpatient stay Substantial Risk for: harm to self, inability to function and rapid decompen sation
[2020-07-09] MEDS: ARIPiprazole 2 MG TABLET PO (21:15)
[2020-07-10 06:00] VITALS: BP 113/64; PULSE 72; RESP 14; O2SAT 96
[2020-07-10] MEDS: Sertraline HCL 50 MG TABLET PO (08:42)
[2020-07-10] MEDS: Gabapentin 100 MG CAPSULE PO ×3 (08:42→22:24)
[2020-07-10] MEDS: Acetaminophen 325 MG TABLET 650 MG PO (10:29)
[2020-07-10] MEDS: LORazepam 1 MG TABLET PO (10:53)
--- NOTE | 2020-07-10 16:41 | P.PNPSI_ITS ---
Subjective Subjective Date of Service: 07/10/20 Reason For Visit: DEPRESSION Subjective Notes: Conditional Voluntary Interim History: Anxious prior to therapy appt with subsequent panic attack. Accepted lorazepam 1 mg x 1 dose. Believes anti-anxiety medication is not helping her currently. Michela CHAVARRIA and MARITZA Ochoa, pt's drew and advisor from [employer]. Pt has some options for extending deadlines for course work and does not have to take LOTTIE if she does not withdraw. Mr. Ochoa will begin to reach out to her professors to assess their availability to assist with this process. They are impressed with her work and want to be helpful in this instance. Pt sleeping later in the afternoon after therapy appt. Medication Compliance: Yes Side effects from medications: No Attending Groups: Yes Review of Systems Review of Systems Yes all other systems are reviewed and are negative Psychiatric: Reports anxiety, Reports depression, Reports difficulty concentrating, Reports hopelessness, Reports irritability, Reports anhedonia and Reports suicidal ideation Mental Status Exam Mental Status Exam Patient Appearance: Appropriate Patient Orientation: Person, Place, Time and Situation Level of Consciousness: Alert Patient Behavior: Restless, Anxious, Fearful and Distractible Mood Description: Depressed and Anxious Affect Description: Anxious Patient Cognition Impaired: No Ability to Follow Directions: Good Speech Pattern: Spontaneous Speech Memory Description: Intact Hallucinations: None Delusions: Not Present Thought Process: Distracted Thought Content: positive for Intact Depressive Symptoms: Increased Anxiety, Diff. Making Decisions, Crying Spells, Loss of Int. in Activity, Hopelessness, Isolating-Friends/Family, Unhappiness, Increased Fatigue, Low Self Esteem, Loss of Energy and Difficulty Concentrating Judgement: Fair Diagnostics Vital Signs (24Hr): Vital Signs - 24 hr 07/09/20 16:55 07/10/20 06:00 Temperature 98.2 F Pulse Rate 79 72 Respiratory Rate 14 Blood Pressure 130/78 113/64 Pulse Oximetry 96 Body Mass Index 22.9 Labs Results: 07/01/20 15:51 07/01/20 15:51 Medications Medications Current Medications Generic Name Dose Route Start Last Admin Trade Name Freq PRN Reason Stop Dose Admin Acetaminophen 650 mg 07/02/20 13:01 07/10/20 10:29 Acetaminophen 325 Mg Tablet PO 650 mg Q6H PRN Administration Headache/Pain Mild Scale (1-3) Al Hydroxide/Mg Hydroxide 30 ml 07/02/20 13:01 Magnesium Hydrox/Alum Hydrox 30 Ml Oral.Susp PO Q6H PRN Heartburn/Nausea Aripiprazole 2 mg 07/09/20 21:00 07/09/20 21:15 Aripiprazole 2 Mg Tablet PO 2 mg BEDTIME ALIA Administration Gabapentin 100 mg 07/07/20 21:00 07/10/20 14:16 Gabapentin 100 Mg Capsule PO 100 mg TID ALIA Administration Lorazepam 1 mg 07/10/20 10:46 07/10/20 10:53 Lorazepam 1 Mg Tablet PO 1 mg Q6H PRN Administration Anxiety Magnesium Hydroxide 30 ml 07/02/20 13:01 Milk Of Magnesia 30 Ml Oral.Susp PO DAILY PRN Constipation Sertraline HCl 50 mg 07/05/20 09:00 07/10/20 08:42 Sertraline Hcl 50 Mg Tablet PO 50 mg DAILY ALIA Administration Trazodone HCl 50 mg 07/02/20 13:01 07/08/20 23:08 Trazodone Hcl 50 Mg Tablet PO 50 mg BEDTIME PRN Administration Insomnia Allergies Allergies Allergy/AdvReac Type Severity Reaction Status Date / Time No Known Allergies Allergy Verified 07/01/20 14:29 Assessment & Plan Assessment & Plan (1) Recurrent major depression-severe: Status: Acute Code(s): F33.2 - Major depressive disorder, recurrent severe without psychotic features (2) PTSD (post-traumatic stress disorder): Status: Acute Code(s): F43.10 - Post-traumatic stress disorder, unspecified Greater than 50% of the session was spent on counseling and/or coordination of care Reason for contiued inpatient stay Substantial Risk for: harm to self, inability to function and rapid decompensati on
[2020-07-10 18:00] VITALS: BP 117/76; PULSE 118; TEMP 37.2
[2020-07-10] MEDS: ARIPiprazole 2 MG TABLET PO (22:24)
[2020-07-11 06:00] VITALS: BP 112/70; BP 138/93; PULSE 84; PULSE 85; RESP 16; TEMP 36.4; TEMP 36.6; O2SAT 97
[2020-07-11] MEDS: Gabapentin 100 MG CAPSULE PO (09:12)
[2020-07-11] MEDS: Sertraline HCL 50 MG TABLET PO (09:12)
[2020-07-11] MEDS: Gabapentin 300 MG CAPSULE PO ×2 (14:43→22:00)
--- NOTE | 2020-07-11 15:38 | P.PNPSI_ITS ---
Subjective Subjective Date of Service: 07/11/20 Reason For Visit: DEPRESSION Subjective Notes: Conditional Voluntary Interim History: Pt discussed how to tell her uncle about her attempt and asks if she can have team support when she does this. Discussed precipitant to panic attack on 07/10 and mgt of sx Discussed telegraphic typewriter operator chief and Michela Parks's discussion with her drew on 07/10 Medication Compliance: Yes Side effects from medications: No Review of Systems Review of Systems Yes all other systems are reviewed and are negative Psychiatric: Reports anxiety, Reports depression, Reports difficulty concentrating, Reports hopelessness, Reports irritability, Reports anhedonia, Reports panic attacks and Reports suicidal ideation Mental Status Exam Mental Status Exam Patient Appearance: Appropriate Patient Orientation: Person, Place, Time and Situation Level of Consciousness: Alert Patient Behavior: Cooperative Mood Description: Depressed and Anxious Affect Description: Flat Patient Cognition Impaired: No Ability to Follow Directions: Good Speech Pattern: Spontaneous Speech Memory Description: Intact Hallucinations: None Delusions: Not Present Thought Process: Intact Thought Content: positive for Intact Depressive Symptoms: Increased Anxiety, Diff. Making Decisions, Increased Ir ritability, Crying Spells, Loss of Int. in Activity, Feelings of Worthlessness, Hopelessness, Isolating-Friends/Family, Feelings of Guilt, Unhappiness, Increased Fatigue, Thoughts of /Suicide, Low Self Esteem, Loss of Energy and Difficulty Concentrating Judgement: Fair Diagnostics Vital Signs (24Hr): Vital Signs - 24 hr 07/10/20 18:00 07/11/20 06:00 Temperature 98.9 F 97.6 F Pulse Rate 118 H 84 Respiratory Rate 16 Blood Pressure 117/76 138/93 H Pulse Oximetry 97 Body Mass Index 22.9 Labs Results: 07/01/20 15:51 07/01/20 15:51 Medications Medications Current Medications Generic Name Dose Route Start Last Admin Trade Name Freq PRN Reason Stop Dose Admin Acetaminophen 650 mg 07/02/20 13:01 07/10/20 10:29 Acetaminophen 325 Mg Tablet PO 650 mg Q6H PRN Administration Headache/Pain Mild Scale (1-3) Al Hydroxide/Mg Hydroxide 30 ml 07/02/20 13:01 Magnesium Hydrox/Alum Hydrox 30 Ml Oral.Susp PO Q6H PRN Heartburn/Nausea Aripiprazole 2 mg 07/09/20 21:00 07/10/20 22:24 Aripiprazole 2 Mg Tablet PO 2 mg BEDTIME ALIA Administration Gabapentin 300 mg 07/11/20 15:00 07/11/20 14:43 Gabapentin 300 Mg Capsule PO 300 mg TID ALIA Administration Lorazepam 1 mg 07/10/20 10:46 07/10/20 10:53 Lorazepam 1 Mg Tablet PO 1 mg Q6H PRN Administration Anxiety Magnesium Hydroxide 30 ml 07/02/20 13:01 Milk Of Magnesia 30 Ml Oral.Susp PO DAILY PRN Constipation Sertraline HCl 50 mg 07/05/20 09:00 07/11/20 09:12 Sertraline Hcl 50 Mg Tablet PO 50 mg DAILY ALIA Administration Trazodone HCl 50 mg 07/02/20 13:01 07/08/20 23:08 Trazodone Hcl 50 Mg Tablet PO 50 mg BEDTIME PRN Administration Insomnia Allergies Allergies Allergy/AdvReac Type Severity Reaction Status Date / Time No Known Allergies Allergy Verified 07/01/20 14:29 Assessment & Plan Assessment & Plan (1) PTSD (post-traumatic stress disorder): Status: Acute Code(s): F43.10 - Post-traumatic stress disorder, unspecified Assessment and Plan: -Increase Gabapentin to 300 mg tid for mgt of anxiety (2) Recurrent major depression-severe: Status: Acute Code(s): F33.2 - Major depressive disorder, recurrent severe without psychotic features Greater than 50% of the session was spent on counseling and/or coordination of care Reason for contiued inpatient stay Substantial Risk for: harm to self, inability to function and rapid decompensation
[2020-07-11 18:00] VITALS: BP 136/85; PULSE 92; TEMP 37.3
[2020-07-11] MEDS: ARIPiprazole 2 MG TABLET PO (22:00)
[2020-07-12 06:00] VITALS: BP 127/88; PULSE 103; RESP 18; TEMP 36.8; O2SAT 98
--- NOTE | 2020-07-12 08:33 | P.PNPSI_ITS ---
Subjective Subjective Date of Service: 07/12/20 Reason For Visit: DEPRESSION Subjective Notes: Conditional Voluntary Interim History: Pt appears less anxious. No formal meeting today with assembly instructions writer- brief interaction-planning to visit with her uncle today and talk with him about her symptoms. Reports anxiety is decreased. Participated in group-social with peers, napped mid afternoon. Increased milieu engagement, more relaxed and increased overall participation. She is showing some relief of sx today. Medication Compliance: Yes Side effects from medications: No Attending Groups: Yes Review of Systems Psychiatric: Reports depression, Reports difficulty concentrating, Reports hopelessness, Reports anhedonia and Reports suicidal ideation Mental Status Exam Mental Status Exam Patient Appearance: Appropriate Patient Orientation: Person, Place, Time and Situation Level of Consciousness: Alert Patient Behavior: Appropriate Mood Description: Appropriate Affect Description: Flat Patient Cognition Impaired: No Ability to Follow Directions: Good Speech Pattern: Spontaneous Speech Memory Description: Intact Hallucinations: None Thought Process: Intact Thought Content: positive for Intact Depressive Symptoms: Diff. Making Decisions, Loss of Int. in Activity, Hopelessness, Unhappiness, Increased Fatigue, Low Self Esteem, Loss of Energy and Difficulty Concentrating Judgement: Fair Diagnostics Vital Signs (24Hr): Vital Signs - 24 hr 07/11/20 18:00 07/12/20 06:00 Temperature 99.1 F 98.2 F Pulse Rate 92 103 H Respiratory Rate 18 Blood Pressure 136/85 127/88 Pulse Oximetry 98 Body Mass Index 22.9 Labs Results: 07/01/20 15:51 07/01/20 15:51 Medications Medications Current Medications Generic Name Dose Route Start Last Admin Trade Name Freq PRN Reason Stop Dose Admin Acetaminophen 650 mg 07/02/20 13:01 07/10/20 10:29 Acetaminophen 325 Mg Tablet PO 650 mg Q6H PRN Administration Headache/Pain Mild Scale (1-3) Al Hydroxide/Mg Hydroxide 30 ml 07/02/20 13:01 Magnesium Hydrox/Alum Hydrox 30 Ml Oral.Susp PO Q6H PRN Heartburn/Nausea Aripiprazole 2 mg 07/09/20 21:00 07/11/20 22:00 Aripiprazole 2 Mg Tablet PO 2 mg BEDTIME ALIA Administration Gabapentin 300 mg 07/11/20 15:00 07/11/20 22:00 Gabapentin 300 Mg Capsule PO 300 mg TID ALIA Administration Lorazepam 1 mg 07/10/20 10:46 07/10/20 10:53 Lorazepam 1 Mg Tablet PO 1 mg Q6H PRN Administration Anxiety Magnesium Hydroxide 30 ml 07/02/20 13:01 Milk Of Magnesia 30 Ml Oral.Susp PO DAILY PRN Constipation Sertraline HCl 50 mg 07/05/20 09:00 07/11/20 09:12 Sertraline Hcl 50 Mg Tablet PO 50 mg DAILY ALIA Administration Trazodone HCl 50 mg 07/02/20 13:01 07/08/20 23:08 Trazodone Hcl 50 Mg Tablet PO 50 mg BEDTIME PRN Administration Insomnia Allergies Allergies Allergy/AdvReac Type Severity Reaction Status Date / Time No Known Allergies Allergy Verified 07/01/20 14:29 Assessment & Plan Assessment & Plan (1) PTSD (post-traumatic stress disorder): Status: Acute Code(s): F43.10 - Post-traumatic stress disorder, unspecified (2) Recurrent major depression-severe: Status: Acute Code(s): F33.2 - Major depressive disorder, recurrent severe without psychotic features Greater than 50% of the session was spent on counseling and/or coordination of care Reason for contiued inpatient stay Substantial Risk for: harm to self, inability to function and rapid d ecompensation
[2020-07-12] MEDS: Sertraline HCL 50 MG TABLET PO (09:09)
[2020-07-12] MEDS: Gabapentin 300 MG CAPSULE PO ×3 (09:09→21:48)
[2020-07-12 21:01] VITALS: BP 121/83; PULSE 84; TEMP 36.7
[2020-07-12] MEDS: ARIPiprazole 2 MG TABLET PO (21:48)
[2020-07-12] MEDS: traZODone HCL 50 MG TABLET PO (22:04)
[2020-07-13] MEDS: Sertraline HCL 50 MG TABLET PO (08:32)
[2020-07-13] MEDS: Gabapentin 300 MG CAPSULE PO ×2 (08:32→21:43)
[2020-07-13] MEDS: clonazePAM 0.5 MG TABLET 0.25 MG PO ×2 (12:25→21:45)
--- NOTE | 2020-07-13 13:43 | HO.PSYCHPN ---
Subjective Subjective Date of Service: 07/13/20 Reason For Visit: DEPRESSION Subjective Notes: Conditional Voluntary Interim History: Rachell reports she felt out of it yesterday and as a result did not visit with her uncle. Reflected to pt that she looked more relaxed yesterday but she said she was not feeling that way. States she felt more depressed after napping yesterday afternoon and continues to feel overwhelmed. She is considering options for course work with her university-to extend some classes and to drop others, yet has not made a decision. Discussed panic sx exhibited on 07/10-reports when in therapy she felt dissociated and does not recall the therapy session at all-not recalling what she said about her admission or attempt. Review of all medications. Gabapentin is not really helping-will taper. Sertraline and Abilify are tolerated without effect yet. Will trial Klonopin 0.25 mg bid for anxiety mgt-pt felt Lorazepam dose on 07/10 was too strong. Medication Compliance: Yes Side effects from medications: Yes Attending Groups: Yes Review of Systems Review of Systems Yes all other systems are reviewed and are negative Reports behavioral changes Psychiatric: Reports anxiety, Reports behavioral changes, Reports depression, Reports difficulty concentrating, Reports hopelessness, Reports anhedonia, Reports panic attacks and Reports suicidal ideation Mental Status Exam Mental Status Exam Patient Appearance: Appropriate Patient Orientation: Person, Place, Time and Situation Level of Consciousness: Alert Patient Behavior: Talkative and Good Eye Contact Mood Description: Depressed and Anxious Affect Description: Flat Patient Cognition Impaired: No Ability to Follow Directions: Good Speech Pattern: Spontaneous Speech Memory Description: Intact Hallucinations: None Delusions: Not Present Thought Process: Rumination and Goal Oriented Thought Content: positive for Perseveration Depressive Symptoms: Increased Anxiety, Loss of Int. in Activity, Feelings of Worthlessness, Hopelessness, Isolating-Friends/Family, Feelings of Guilt, Unhappiness, Increased Fatigue, Thoughts of /Suicide, Low Self Esteem, Loss of Energy and Difficulty Concentrating Judgement: Fair Diagnostics Vital Signs (24Hr): Vital Signs - 24 hr 07/12/20 21:01 Temperature 98.1 F Pulse Rate 84 Blood Pressure 121/83 Body Mass Index 22.9 Labs Results: 07/01/20 15:51 07/01/20 15:51 Medications Medications Current Medications Generic Name Dose Route Start Last Admin Trade Name Freq PRN Reason Stop Dose Admin Acetaminophen 650 mg 07/02/20 13:01 07/10/20 10:29 Acetaminophen 325 Mg Tablet PO 650 mg Q6H PRN Administration Headache/Pain Mild Scale (1-3) Al Hydroxide/Mg Hydroxide 30 ml 07/02/20 13:01 Magnesium Hydrox/Alum Hydrox 30 Ml Oral.Susp PO Q6H PRN Heartburn/Nausea Aripiprazole 2 mg 07/09/20 21:00 07/12/20 21:48 Aripiprazole 2 Mg Tablet PO 2 mg BEDTIME ALIA Administration Clonazepam 0.25 mg 07/13/20 11:30 07/13/20 12:25 Clonazepam 0.5 Mg Tablet PO 0.25 mg BID ALIA Administration Gabapentin 300 mg 07/13/20 21:00 Gabapentin 300 Mg Capsule PO BID ALIA Lorazepam 1 mg 07/10/20 10:46 07/10/20 10:53 Lorazepam 1 Mg Tablet PO 1 mg Q6H PRN Administration Anxiety Magnesium Hydroxide 30 ml 07/02/20 13:01 Milk Of Magnesia 30 Ml Oral.Susp PO DAILY PRN Constipation Sertraline HCl 50 mg 07/05/20 09:00 07/13/20 08:32 Sertraline Hcl 50 Mg Tablet PO 50 mg DAILY ALIA Administration Trazodone HCl 50 mg 07/02/20 13:01 07/12/20 22:04 Trazodone Hcl 50 Mg Tablet PO 50 mg BEDTIME PRN Administration Insomnia Allergies Allergies Allergy/AdvReac Type Severity Reaction Status Date / Time No Known Allergies Allergy Verified 07/01/20 14:29 Assessment & Plan Assessment & Plan (1) PTSD (post-traumatic stress disorder): Status: Acute Code(s): F43.10 - Post-traumatic stress disorder, unspecified Assessment and Plan: -Decrease Gabapentin to 300 mg bid -Klonopin 0.25 mg bid for anxiety (2) Recurrent major depression-severe: Status: Acute Code(s): F33.2 - Major depressive disorder, recurrent severe without psychotic features Greater than 50% of the session was spent on counseling and/or coordination of care Reason for contiued inpatient stay Substantial Risk for: harm to self, inability to function and rapid decompensation
[2020-07-13 17:00] VITALS: BP 137/87; PULSE 77; TEMP 36.9
[2020-07-13] MEDS: ARIPiprazole 2 MG TABLET PO (21:43)
[2020-07-13] MEDS: traZODone HCL 50 MG TABLET PO (22:38)
[2020-07-14] MEDS: Sertraline HCL 50 MG TABLET PO (08:51)
[2020-07-14] MEDS: Gabapentin 300 MG CAPSULE PO ×2 (08:51→21:55)
[2020-07-14] MEDS: clonazePAM 0.5 MG TABLET 0.25 MG PO ×2 (08:51→21:55)
--- NOTE | 2020-07-14 14:57 | HO.PSYCHPN ---
Subjective Subjective Date of Service: 07/14/20 Reason For Visit: DEPRESSION Subjective Notes: Conditional Voluntary Interim History: Reports some relief with Klonopin. Will begin to review DBT literature today. Denies SE, SI persists . Pt tolerating regime, Gabapentin tapering in process. Plans to discuss with advisor her options with course work and how to proceed for extension or dropping. No moving on communicating with her uncle regarding her attempt citing his work schedule as being 14-16 hours/day Medication Compliance: Yes Side effects from medications: No Attending Groups: Yes Review of Systems Psychiatric: Reports anxiety, Reports depression, Reports difficulty concentrating, Reports hopelessness, Reports irritability, Reports panic attacks and Reports suicidal ideation Mental Status Exam Mental Status Exam Patient Appearance: Appropriate Patient Orientation: Person, Place, Time and Situation Level of Consciousness: Alert Patient Behavior: Appropriate, Talkative, Cooperative and Good Eye Contact Mood Description: Depressed and Anxious Affect Description: Flat Patient Cognition Impaired: No Ability to Follow Directions: Good Speech Pattern: Spontaneous Speech Memory Description: Intact Hallucinations: None Delusions: Not Present Thought Process: Intact Thought Content: positive for Intact Depressive Symptoms: Increased Anxiety, Diff. Making Decisions, Muscle Tension, Increased Irritability, Crying Spells, Loss of Int. in Activity, Feelings of Worthlessness, Hopelessness, Isolating-Friends/Family, Feelings of Guilt, Unhappiness, Increased Fatigue, Thoughts of /Suicide, Low Self Esteem, Loss of Energy and Difficulty Concentrating Judgement: Fair Diagnostics Vital Signs (24Hr): Vital Signs - 24 hr 07/13/20 17:00 Temperature 98.5 F Pulse Rate 77 Blood Pressure 137/87 Body Mass Index 22.9 Labs Results: 07/01/20 15:51 07/01/20 15:51 Medications Medications Current Medications Generic Name Dose Route Start Last Admin Trade Name Freq PRN Reason Stop Dose Admin Acetaminophen 650 mg 07/02/20 13:01 07/10/20 10:29 Acetaminophen 325 Mg Tablet PO 650 mg Q6H PRN Administration Headache/Pain Mild Scale (1-3) Al Hydroxide/Mg Hydroxide 30 ml 07/02/20 13:01 Magnesium Hydrox/Alum Hydrox 30 Ml Oral.Susp PO Q6H PRN Heartburn/Nausea Aripiprazole 2 mg 07/09/20 21:00 07/13/20 21:43 Aripiprazole 2 Mg Tablet PO 2 mg BEDTIME ALIA Administration Clonazepam 0.25 mg 07/13/20 11:30 07/14/20 08:51 Clonazepam 0.5 Mg Tablet PO 0.25 mg BID ALIA Administration Gabapentin 300 mg 07/13/20 21:00 07/14/20 08:51 Gabapentin 300 Mg Capsule PO 300 mg BID ALIA Administration Lorazepam 1 mg 07/10/20 10:46 07/10/20 10:53 Lorazepam 1 Mg Tablet PO 1 mg Q6H PRN Administration Anxiety Magnesium Hydroxide 30 ml 07/02/20 13:01 Milk Of Magnesia 30 Ml Oral.Susp PO DAILY PRN Constipation Sertraline HCl 50 mg 07/05/20 09:00 07/14/20 08:51 Sertraline Hcl 50 Mg Tablet PO 50 mg DAILY ALIA Administration Trazodone HCl 50 mg 07/02/20 13:01 07/13/20 22:38 Trazodone Hcl 50 Mg Tablet PO 50 mg BEDTIME PRN Administration Insomnia Allergies Allergies Allergy/AdvReac Type Severity Reaction Status Date / Time No Known Allergies Allergy Verified 07/01/20 14:29 Assessment & Plan Assessment & Plan (1) PTSD (post-traumatic stress disorder): Status: Acute Code(s): F43.10 - Post-traumatic stress disorder, unspecified Assessment and Plan: Continue Gabapentin tapering. (2) Recurrent major depression-severe: Status: Acute Code(s): F33.2 - Major depressive disorder, recurrent severe without psychotic features Assessment and Plan: Continue Sertraline, Klonopin, Abilify Greater than 50% of the session was spent on counseling and/or coordination of care Reason for contiued inpatient stay Substantial Risk for: harm to self and rapid decompensation
[2020-07-14 18:00] VITALS: BP 121/79; PULSE 85; TEMP 36.6
[2020-07-14] MEDS: ARIPiprazole 2 MG TABLET PO (21:56)
[2020-07-14] MEDS: traZODone HCL 50 MG TABLET PO (23:09)
[2020-07-15] MEDS: Sertraline HCL 50 MG TABLET PO (08:52)
[2020-07-15] MEDS: clonazePAM 0.5 MG TABLET 0.25 MG PO ×2 (08:52→22:01)
--- NOTE | 2020-07-15 12:25 | HO.PSYCHPN ---
Subjective Subjective Date of Service: 07/15/20 Reason For Visit: DEPRESSION Subjective Notes: Conditional Voluntary Interim History: Anxiety decreased. Continues with intrusive thoughts re SI, but decreasing. Discussed decision making process regarding courses. Identifies difficulty placing her health needs above tasks that need to be completed and struggling with that as well as her value as an individual. Medication Compliance: Yes Side effects from medications: No Attending Groups: Yes Review of Systems Review of Systems Yes all other systems are reviewed and are negative Mental Status Exam Mental Status Exam Patient Appearance: Appropriate Patient Orientation: Person, Place, Time and Situation Level of Consciousness: Alert Patient Behavior: Talkative, Cooperative, Passive, Anxious, Fatigued and Good Eye Contact Mood Description: Withdrawn, Depressed and Anxious Affect Description: Flat Patient Cognition Impaired: No Ability to Follow Directions: Good Speech Pattern: Clear and Spontaneous Speech Memory Description: Intact Hallucinations: None Delusions: Not Present Thought Process: Rumination Thought Content: positive for Obsessional Thoughts, positive for Perseveration and positive for Suicidal Ideation (intrusive thoughts at times which are decreasing.) Depressive Symptoms: Increased Anxiety, Loss of Int. in Activity, Feelings of Worthlessness, Hopelessness, Isolating-Friends/Family, Feelings of Guilt, Unhappiness, Increased Fatigue, Thoughts of /Suicide, Low Self Esteem, Loss of Energy and Difficulty Concentrating Judgement: Fair Diagnostics Vital Signs (24Hr): Vital Signs - 24 hr 07/14/20 18:00 Temperature 97.8 F Pulse Rate 85 Blood Pressure 121/79 Body Mass Index 22.9 Labs Results: 07/01/20 15:51 07/01/20 15:51 Medications Medications Current Medications Generic Name Dose Route Start Last Admin Trade Name Freq PRN Reason Stop Dose Admin Acetaminophen 650 mg 07/02/20 13:01 07/10/20 10:29 Acetaminophen 325 Mg Tablet PO 650 mg Q6H PRN Administration Headache/Pain Mild Scale (1-3) Al Hydroxide/Mg Hydroxide 30 ml 07/02/20 13:01 Magnesium Hydrox/Alum Hydrox 30 Ml Oral.Susp PO Q6H PRN Heartburn/Nausea Aripiprazole 2 mg 07/09/20 21:00 07/14/20 21:56 Aripiprazole 2 Mg Tablet PO 2 mg BEDTIME ALIA Administration Clonazepam 0.25 mg 07/13/20 11:30 07/15/20 08:52 Clonazepam 0.5 Mg Tablet PO 0.25 mg BID ALIA Administration Gabapentin 300 mg 07/15/20 21:00 Gabapentin 300 Mg Capsule PO BEDTIME ALIA Lorazepam 1 mg 07/10/20 10:46 07/10/20 10:53 Lorazepam 1 Mg Tablet PO 1 mg Q6H PRN Administration Anxiety Magnesium Hydroxide 30 ml 07/02/20 13:01 Milk Of Magnesia 30 Ml Oral.Susp PO DAILY PRN Constipation Sertraline HCl 50 mg 07/05/20 09:00 07/15/20 08:52 Sertraline Hcl 50 Mg Tablet PO 50 mg DAILY ALIA Administration Trazodone HCl 50 mg 07/02/20 13:01 07/14/20 23:09 Trazodone Hcl 50 Mg Tablet PO 50 mg BEDTIME PRN Administration Insomnia Allergies Allergies Allergy/AdvReac Type Severity Reaction Status Date / Time No Known Allergies Allergy Verified 07/01/20 14:29 Assessment & Plan Assessment & Plan (1) PTSD (post-traumatic stress disorder): Status: Acute Code(s): F43.10 - Post-traumatic stress disorder, unspecified (2) Recurrent major depression-severe: Status: Acute Code(s): F33.2 - Major depressive disorder, recurrent severe without psychotic features Greater than 50% of the session was spent on counseling and/or coordination of care Reason for contiued inpatient stay Substantial Risk for: harm to self, inability to function and rapid decompensation
[2020-07-15 18:00] VITALS: BP 111/70; PULSE 97; TEMP 37.6
[2020-07-15] MEDS: Gabapentin 300 MG CAPSULE PO (22:01)
[2020-07-15] MEDS: ARIPiprazole 2 MG TABLET PO (22:01)
[2020-07-15] MEDS: traZODone HCL 50 MG TABLET PO (23:46)
[2020-07-16 07:00] VITALS: BMI 22.6
[2020-07-16] MEDS: Sertraline HCL 25 MG TABLET 75 MG PO (09:18)
[2020-07-16] MEDS: clonazePAM 0.5 MG TABLET 0.25 MG PO ×2 (09:18→21:42)
--- NOTE | 2020-07-16 10:12 | HO.PSYCHPN ---
Subjective Subjective Date of Service: 07/16/20 Reason For Visit: DEPRESSION Interim History: The patient denies active suicidal ideation, she is compliant with treatment. Nursing staff reported that she attended to a few groups, she self-reported depression 07/25 . She is going to have a family meeting tomorrow with his uncle. Medication Compliance: Yes Side effects from medications: No Attending Groups: Yes Review of Systems Review of Systems Yes all other systems are reviewed and are negative Mental Status Exam Mental Status Exam Patient Appearance: Well Grooomed and Appropriate Patient Orientation: Person, Place, Time and Situation Level of Consciousness: Awake and Appropriate Patient Behavior: Appropriate Mood Description: Calm and Appropriate Affect Description: Appropriate and Constricted Patient Cognition Impaired: No Ability to Follow Directions: Good Speech Pattern: Clear Memory Description: Intact Hallucinations: None Delusions: Not Present Thought Process: Intact Thought Content: positive for Intact Judgement: Fair Diagnostics Vital Signs (24Hr): Vital Signs - 24 hr 07/15/20 18:00 Temperature 99.7 F Pulse Rate 97 Blood Pressure 111/70 Body Mass Index 22.9 Labs Results: 07/01/20 15:51 07/01/20 15:51 Medications Medications Current Medications Generic Name Dose Route Start Last Admin Trade Name Freq PRN Reason Stop Dose Admin Acetaminophen 650 mg 07/02/20 13:01 07/10/20 10:29 Acetaminophen 325 Mg Tablet PO 650 mg Q6H PRN Administration Headache/Pain Mild Scale (1-3) Al Hydroxide/Mg Hydroxide 30 ml 07/02/20 13:01 Magnesium Hydrox/Alum Hydrox 30 Ml Oral.Susp PO Q6H PRN Heartburn/Nausea Aripiprazole 2 mg 07/09/20 21:00 07/15/20 22:01 Aripiprazole 2 Mg Tablet PO 2 mg BEDTIME ALIA Administration Clonazepam 0.25 mg 07/13/20 11:30 07/16/20 09:18 Clonazepam 0.5 Mg Tablet PO 0.25 mg BID ALIA Administration Gabapentin 300 mg 07/15/20 21:00 07/15/20 22:01 Gabapentin 300 Mg Capsule PO 300 mg BEDTIME ALIA Administration Lorazepam 1 mg 07/10/20 10:46 07/10/20 10:53 Lorazepam 1 Mg Tablet PO 1 mg Q6H PRN Administration Anxiety Magnesium Hydroxide 30 ml 07/02/20 13:01 Milk Of Magnesia 30 Ml Oral.Susp PO DAILY PRN Constipation Sertraline HCl 75 mg 07/16/20 09:00 07/16/20 09:18 Sertraline Hcl 25 Mg Tablet PO 75 mg DAILY ALIA Administration Trazodone HCl 50 mg 07/02/20 13:01 07/15/20 23:46 Trazodone Hcl 50 Mg Tablet PO 50 mg BEDTIME PRN Administration Insomnia Allergies Allergies Allergy/AdvReac Type Severity Reaction Status Date / Time No Known Allergies Allergy Verified 07/01/20 14:29 Assessment & Plan Assessment & Plan (1) Recurrent major depression-severe: Status: Acute Code(s): F33.2 - Major depressive disorder, recurrent severe without psychotic features (2) PTSD (post-traumatic stress disorder): Status: Acute Code(s): F43.10 - Post-traumatic stress disorder, unspecified Assessment and Plan: 1. Continue Zoloft to target anxiety and depression. Greater than 50% of the session was spent on counseling and/or coordination of care Reason for contiued inpatient stay Substantial Risk for: inability to function
[2020-07-16 14:30] VITALS: BP 140/99; PULSE 137; RESP 16; TEMP 37.1; O2SAT 99
[2020-07-16 18:00] VITALS: BP 128/66; PULSE 99; TEMP 36.6
[2020-07-16] MEDS: Gabapentin 300 MG CAPSULE PO (21:43)
[2020-07-16] MEDS: ARIPiprazole 2 MG TABLET PO (21:43)
[2020-07-16] MEDS: traZODone HCL 50 MG TABLET PO (23:21)
[2020-07-17 06:00] VITALS: BP 104/60; PULSE 91; TEMP 36.7
[2020-07-17] MEDS: clonazePAM 0.5 MG TABLET 0.25 MG PO (08:58)
[2020-07-17] MEDS: Sertraline HCL 25 MG TABLET 75 MG PO (08:58)
--- NOTE | 2020-07-17 12:45 | HO.PSYCHPN ---
Subjective Subjective Date of Service: 07/17/20 Reason For Visit: DEPRESSION Subjective Notes: Conditional Voluntary Interim History: Met with pt, Michela Kasey DEON, pt's uncle today. Pt able to tell her uncle about her attempt. He was very accepting and supportive, sharing with pt he had been in that place before and believes it is an inherited problem. Review of medications with pt. I woke up good yesterday . Fearful of another pt who is quite symptomatic-unsure if this is the reason for some decline yesterday and today of if this person may be someone who reminds her of a family member. SI decreased with intrusive thoughts still present. Sleep improved with Trazodone, Sertraline beginning to work she believes. Medication Compliance: Yes Side effects from medications: No Attending Groups: Yes Review of Systems Review of Systems Yes all other systems are reviewed and are negative Psychiatric: Reports anxiety, Reports depression, Reports difficulty concentrating, Reports hopelessness, Reports anhedonia, Reports panic attacks and Reports suicidal ideation Mental Status Exam Mental Status Exam Patient Orientation: Person, Place, Time and Situation Level of Consciousness: Alert Patient Behavior: Talkative, Cooperative, Anxious, Fearful, Good Eye Contact and Crying Mood Description: Depressed and Anxious Affect Description: Depressed, Anxious and Flat Patient Cognition Impaired: No Ability to Follow Directions: Good Speech Pattern: Spontaneous Speech Memory Description: Intact Hallucinations: None Delusions: Not Present Thought Process: Distracted and Rumination Thought Content: positive for Circumstantial, positive for Perseveration and positive for Suicidal Ideation Depressive Symptoms: Increased Anxiety Judgement: Fair Diagnostics Vital Signs (24Hr): Vital Signs - 24 hr 07/16/20 14:30 07/16/20 18:00 07/17/20 06:00 Temperature 98.8 F 98 F 98.1 F Pulse Rate 137 H 99 91 Respiratory Rate 16 Blood Pressure 140/99 H 128/66 104/60 Pulse Oximetry 99 Body Mass Index 22.6 Labs Results: 07/01/20 15:51 07/01/20 15:51 Medications Medications Current Medications Generic Name Dose Route Start Last Admin Trade Name Freq PRN Reason Stop Dose Admin Acetaminophen 650 mg 07/02/20 13:01 07/10/20 10:29 Acetaminophen 325 Mg Tablet PO 650 mg Q6H PRN Administration Headache/Pain Mild Scale (1-3) Al Hydroxide/Mg Hydroxide 30 ml 07/02/20 13:01 Magnesium Hydrox/Alum Hydrox 30 Ml Oral.Susp PO Q6H PRN Heartburn/Nausea Aripiprazole 2 mg 07/09/20 21:00 07/16/20 21:43 Aripiprazole 2 Mg Tablet PO 2 mg BEDTIME ALIA Administration Clonazepam 0.25 mg 07/13/20 11:30 07/17/20 08:58 Clonazepam 0.5 Mg Tablet PO 0.25 mg BID ALIA Administration Gabapentin 300 mg 07/15/20 21:00 07/16/20 21:43 Gabapentin 300 Mg Capsule PO 300 mg BEDTIME ALIA Administration Lorazepam 1 mg 07/10/20 10:46 07/10/20 10:53 Lorazepam 1 Mg Tablet PO 1 mg Q6H PRN Administration Anxiety Magnesium Hydroxide 30 ml 07/02/20 13:01 Milk Of Magnesia 30 Ml Oral.Susp PO DAILY PRN Constipation Sertraline HCl 75 mg 07/16/20 09:00 07/17/20 08:58 Sertraline Hcl 25 Mg Tablet PO 75 mg DAILY ALIA Administration Trazodone HCl 50 mg 07/02/20 13:01 07/16/20 23:21 Trazodone Hcl 50 Mg Tablet PO 50 mg BEDTIME PRN Administration Insomnia Allergies Allergies Allergy/AdvReac Type Severity Reaction Status Date / Time No Known Allergies Allergy Verified 07/01/20 14:29 Assessment & Plan Assessment & Plan (1) PTSD (post-traumatic stress disorder): Status: Acute Code(s): F43.10 - Post-traumatic stress disorder, unspecified Assessment and Plan: Discontinue Gabapentin Klonopin increase to 0.5 mg bid (2) Recurrent major depression-severe: Status: Acute Code(s): F33.2 - Major depressive disorder, recurrent severe without psychotic features Assessment and Plan: -Increase Abilify to 5 mg daily Greater than 50% of the session was spent on counseling and/or coordination of care Reason for contiued inpatient stay Substantial Risk for: harm to self, inability to function and rapid decompensation
[2020-07-17 18:45] VITALS: BP 114/73; PULSE 98; TEMP 37
[2020-07-17] MEDS: ARIPiprazole 5 MG TABLET PO (22:24)
[2020-07-17] MEDS: clonazePAM 0.5 MG TABLET PO (22:24)
[2020-07-17] MEDS: traZODone HCL 50 MG TABLET PO (23:50)
[2020-07-18] MEDS: LORazepam 1 MG TABLET PO (00:14)
[2020-07-18] MEDS: clonazePAM 0.5 MG TABLET PO ×2 (09:35→20:30)
[2020-07-18] MEDS: Sertraline HCL 25 MG TABLET 75 MG PO (09:35)
[2020-07-18 19:48] VITALS: BP 127/88; PULSE 109; RESP 18; O2SAT 100
[2020-07-18] MEDS: ARIPiprazole 5 MG TABLET PO (20:30)
--- NOTE | 2020-07-18 21:23 | HO.PSYCHPN ---
Subjective Subjective Date of Service: 07/18/20 Reason For Visit: DEPRESSION Subjective Notes: Conditional Voluntary Interim History: Rachell spent much of the day socializing with her peers. She had no immediate concerns and reports that she feels safe on the unit. Medication Compliance: Yes Side effects from medications: No Attending Groups: Yes Review of Systems Acute medical concerns: No Medical Review of Systems: unchanged Review of Systems Review of Systems Yes all other systems are reviewed and are negative Mental Status Exam Mental Status Exam Patient Appearance: Well Grooomed Patient Orientation: Person, Place, Time and Situation Level of Consciousness: Alert Patient Behavior: Talkative, Cooperative, Anxious, Fearful, Good Eye Contact and Crying Mood Description: Depressed and Anxious Affect Description: Depressed, Anxious and Flat Patient Cognition Impaired: No Ability to Follow Directions: Good Speech Pattern: Spontaneous Speech Memory Description: Intact Hallucinations: None Delusions: Not Present Thought Process: Distracted and Rumination Thought Content: positive for Circumstantial, positive for Perseveration, negative for Suicidal Ideation and negative for Homicidal Ideation Depressive Symptoms: Increased Anxiety Judgement: Fair Diagnostics Vital Signs (24Hr): Vital Signs - 24 hr 07/18/20 19:48 Pulse Rate 109 H Respiratory Rate 18 Blood Pressure 127/88 Pulse Oximetry 100 Body Mass Index 22.6 Labs Results: 07/01/20 15:51 07/01/20 15:51 Medications Medications Current Medications Generic Name Dose Route Start Last Admin Trade Name Freq PRN Reason Stop Dose Admin Acetaminophen 650 mg 07/02/20 13:01 07/10/20 10:29 Acetaminophen 325 Mg Tablet PO 650 mg Q6H PRN Administration Headache/Pain Mild Scale (1-3) Al Hydroxide/Mg Hydroxide 30 ml 07/02/20 13:01 Magnesium Hydrox/Alum Hydrox 30 Ml Oral.Susp PO Q6H PRN Heartburn/Nausea Aripiprazole 5 mg 07/17/20 21:00 07/18/20 20:30 Aripiprazole 5 Mg Tablet PO 5 mg BEDTIME ALIA Administration Clonazepam 0.5 mg 07/17/20 21:00 07/18/20 20:30 Clonazepam 0.5 Mg Tablet PO 0.5 mg BID ALIA Administration Lorazepam 1 mg 07/10/20 10:46 07/18/20 00:14 Lorazepam 1 Mg Tablet PO 1 mg Q6H PRN Administration Anxiety Magnesium Hydroxide 30 ml 07/02/20 13:01 Milk Of Magnesia 30 Ml Oral.Susp PO DAILY PRN Constipation Sertraline HCl 75 mg 07/16/20 09:00 07/18/20 09:35 Sertraline Hcl 25 Mg Tablet PO 75 mg DAILY ALIA Administration Trazodone HCl 50 mg 07/02/20 13:01 07/17/20 23:50 Trazodone Hcl 50 Mg Tablet PO 50 mg BEDTIME PRN Administration Insomnia Allergies Allergies Allergy/AdvReac Type Severity Reaction Status Date / Time No Known Allergies Allergy Verified 07/01/20 14:29 Assessment & Plan Assessment & Plan (1) PTSD (post-traumatic stress disorder): Status: Acute Code(s): F43.10 - Post-traumatic stress disorder, unspecified (2) Recurrent major depression-severe: Status: Acute Code(s): F33.2 - Major depressive disorder, recurrent severe without psychotic features Assessment and Plan: CT current treatment plan without change Greater than 50% of the session was spent on counseling and/or coordination of care Patient educated on: diagnosis and medication risk/benefits Informed Consent: understands Reason for contiued inpatient stay Substantial Risk for: harm to self
[2020-07-18] MEDS: traZODone HCL 50 MG TABLET PO (23:43)
[2020-07-19] MEDS: Sertraline HCL 25 MG TABLET 75 MG PO (09:17)
[2020-07-19] MEDS: clonazePAM 0.5 MG TABLET PO ×2 (09:17→21:08)
--- NOTE | 2020-07-19 17:45 | P.PNPSI_ITS ---
Subjective Subjective Date of Service: 07/19/20 Reason For Visit: DEPRESSION Interim History: Rachell spent much of the day socializing with her peers. She had no immediate concerns and reports that she feels safe on the unit. She is hoping to be DC soon Medication Compliance: Yes Side effects from medications: No Attending Groups: Yes Review of Systems Acute medical concerns: No Medical Review of Systems: unchanged Review of Systems Review of Systems Yes all other systems are reviewed and are negative Constitutional: Reports as per HPI and Reports no additional constitutional comp laints Eyes: Reports as per HPI and Reports no additional eye complaints Reports system reviewed and no additional complaints, except as documented and Reports as per HPI Cardiovascular: Reports as per HPI and Reports no additional cardiovascular complaints Respiratory: Reports as per HPI and Reports no additional respiratory complaints Gastrointestinal: Reports as per HPI and Reports no additional gastrointestinal complaints Musculoskeletal: Reports no additional musculoskeletal complaints and Reports as per HPI Reports system reviewed and no additional complaints, except as documented, Reports as per HPI and Reports behavioral changes Psychiatric: Reports no additional psychiatric complaints, Reports as per HPI, Reports abnormal sleep pattern, Reports anxiety, Reports behavioral changes, Reports change in appetite, Reports depression, Reports difficulty concentrating, Reports hopelessness, Reports irritability, Reports anhedonia, Reports panic attacks and Reports suicidal ideation Mental Status Exam Mental Status Exam Patient Appearance: Well Grooomed Patient Orientation: Person, Place, Time and Situation Level of Consciousness: Alert Patient Behavior: Talkative, Cooperative, Anxious, Fearful, Good Eye Contact and Crying Mood Description: Depressed and Anxious Affect Description: Depressed, Anxious and Flat Patient Cognition Impaired: No Ability to Follow Directions: Good Speech Pattern: Spontaneous Speech Memory Description: Intact Hallucinations: None Delusions: Not Present Thought Process: Intact Thought Content: positive for Intact, negative for Suicidal Ideation and negative for Homicidal Ideation Judgement: Good Diagnostics Vital Signs (24Hr): Vital Signs - 24 hr 07/18/20 19:48 Pulse Rate 109 H Respiratory Rate 18 Blood Pressure 127/88 Pulse Oximetry 100 Body Mass Index 22.6 Labs Results: 07/01/20 15:51 07/01/20 15:51 Medications Medications Current Medications Generic Name Dose Route Start Last Admin Trade Name Freq PRN Reason Stop Dose Admin Acetaminophen 650 mg 07/02/20 13:01 07/10/20 10:29 Acetaminophen 325 Mg Tablet PO 650 mg Q6H PRN Administration Headache/Pain Mild Scale (1-3) Al Hydroxide/Mg Hydroxide 30 ml 07/02/20 13:01 Magnesium Hydrox/Alum Hydrox 30 Ml Oral.Susp PO Q6H PRN Heartburn/Nausea Aripiprazole 5 mg 07/17/20 21:00 07/18/20 20:30 Aripiprazole 5 Mg Tablet PO 5 mg BEDTIME ALIA Administration Clonazepam 0.5 mg 07/17/20 21:00 07/19/20 09:17 Clonazepam 0.5 Mg Tablet PO 0.5 mg BID ALIA Administration Magnesium Hydroxide 30 ml 07/02/20 13:01 Milk Of Magnesia 30 Ml Oral.Susp PO DAILY PRN Constipation Sertraline HCl 75 mg 07/16/20 09:00 07/19/20 09:17 Sertraline Hcl 25 Mg Tablet PO 75 mg DAILY ALIA Administration Trazodone HCl 50 mg 07/02/20 13:01 07/18/20 23:43 Trazodone Hcl 50 Mg Tablet PO 50 mg BEDTIME PRN Administration Insomnia Allergies Allergies Allergy/AdvReac Type Severity Reaction Status Date / Time No Known Allergies Allergy Verified 07/01/20 14:29 Assessment & Plan Assessment & Plan (1) PTSD (post-traumatic stress disorder): Status: Acute Code(s): F43.10 - Post-traumatic stress disorder, unspecified (2) Recurrent major depression-severe: Status: Acute Code(s): F33.2 - Major depressive disorder, recurrent severe without psychotic features Assessment and Plan: CT current treatment plan without change Greater than 50% of the session was spent on counseling and/or coordination of care Patient educated on: diagnosis and medication risk/benefits Reason for contiued inpatient stay Substantial Risk for: inability to function and rapid decompensation
[2020-07-19 18:00] VITALS: BP 132/87; PULSE 88; RESP 16; O2SAT 100
[2020-07-19] MEDS: ARIPiprazole 5 MG TABLET PO (21:08)
[2020-07-19] MEDS: traZODone HCL 50 MG TABLET PO (23:56)
[2020-07-20] MEDS: Sertraline HCL 25 MG TABLET 75 MG PO (08:22)
[2020-07-20] MEDS: clonazePAM 0.5 MG TABLET PO ×2 (08:24→21:14)
--- NOTE | 2020-07-20 15:36 | P.PNPSI_ITS ---
Subjective Subjective Date of Service: 07/20/20 Reason For Visit: DEPRESSION Subjective Notes: Conditional Voluntary Interim History: Pt reports she continues with active SI, the last instance being 4/5 evening. Depressive symptoms are worse in the evening. Being at home now with limited support, isolation and with no one to check in with pt feels will precipitate a relapse and another attempt. Pt, MARITZA Joiner met with pt's drew via Zoom to discuss options for pt's return to course work. The drew reviewed each course and each professors response to request for extensions. All professors were supportive of pt. However, pt has decided to take an MLOA for the semester and will continue her work in the 2020. Met with pt later in the day. She discussed an increase in PTSD sx due to a new pt which is triggering for her, reminding her of her father and increasing sx and SI. States this is how most of my childhood was lived. When anyone yells, I tense up. Making connections with these memories and attempting to address them. Discussed MLOA from school-states that she has always chosen academic and career paths so her parents would notice her accomplishments and have pride in her-this has decreased and now success is expected. With the MLOA, change of major from pre-med, she worries there will be disappointment which she worries will precipitate not being thought well of and these are the reasons for SI recurring currently. Medication Compliance: Yes Side effects from medications: No Attending Groups: Yes Review of Systems Review of Systems Yes all other systems are reviewed and are negative Psychiatric: Reports anxiety, Reports change in appetite, Reports depression and Reports difficulty concentrating Mental Status Exam Mental Status Exam Patient Appearance: Appropriate Patient Orientation: Person, Place, Time and Situation Level of Consciousness: Alert Patient Behavior: Appropriate, Talkative and Anxious Mood Description: Depressed and Anxious Affect Description: Flat Patient Cognition Impaired: No Speech Pattern: Spontaneous Speech Memory Description: Intact Hallucinations: None Delusions: Not Present Thought Process: Intact and Rumination Thought Content: positive for Intact, positive for [place] and positive for Circumstantial Depressive Symptoms: Increased Anxiety, Hopelessness, Unhappiness, Thoughts of /Suicide, Low Self Esteem and Loss of Energy Judgement: Fair Diagnostics Vital Signs (24Hr): Vital Signs - 24 hr 07/19/20 18:00 Pulse Rate 88 Respiratory Rate 16 Blood Pressure 132/87 Pulse Oximetry 100 Body Mass Index 22.6 Labs Results: 07/01/20 15:51 07/01/20 15:51 Medications Medications Current Medications Generic Name Dose Route Start Last Admin Trade Name Freq PRN Reason Stop Dose Admin Acetaminophen 650 mg 07/02/20 13:01 07/10/20 10:29 Acetaminophen 325 Mg Tablet PO 650 mg Q6H PRN Administration Headache/Pain Mild Scale (1-3) Al Hydroxide/Mg Hydroxide 30 ml 07/02/20 13:01 Magnesium Hydrox/Alum Hydrox 30 Ml Oral.Susp PO Q6H PRN Heartburn/Nausea Aripiprazole 5 mg 07/17/20 21:00 07/19/20 21:08 Aripiprazole 5 Mg Tablet PO 5 mg BEDTIME ALIA Administration Clonazepam 0.5 mg 07/17/20 21:00 07/20/20 08:24 Clonazepam 0.5 Mg Tablet PO 0.5 mg BID ALIA Administration Magnesium Hydroxide 30 ml 07/02/20 13:01 Milk Of Magnesia 30 Ml Oral.Susp PO DAILY PRN Constipation Sertraline HCl 75 mg 07/16/20 09:00 07/20/20 08:22 Sertraline Hcl 25 Mg Tablet PO 75 mg DAILY ALIA Administration Trazodone HCl 50 mg 07/02/20 13:01 07/19/20 23:56 Trazodone Hcl 50 Mg Tablet PO 50 mg BEDTIME PRN Administration Insomnia Allergies Allergies Allergy/AdvReac Type Severity Reaction Status Date / Time No Known Allergies Allergy Verified 07/01/20 14:29 Assessment & Plan Assessment & Plan (1) PTSD (post-traumatic stress disorder): Status: Acute Code(s): F43.10 - Post-traumatic stress disorder, unspecified (2) Recurrent major depression-severe: Status: Acute Code(s): F33.2 - Major depressive disorder, recurrent severe without psychotic features Assessment and Plan: -Increase Sertraline to 100 mg daily Greater than 50% of the session was spent on counseling and/or coordination of care Reason for contiued inpatient stay Substantial Risk for: harm to self, inability to function and rapid decompensation
[2020-07-20 18:00] VITALS: BP 134/86; PULSE 86; TEMP 36.9
[2020-07-20] MEDS: ARIPiprazole 5 MG TABLET PO (21:14)
[2020-07-20] MEDS: traZODone HCL 50 MG TABLET PO (22:48)
[2020-07-21 09:03] LABS: Glucose Fasting 103 mg/dL (60-99)
[2020-07-21] MEDS: Sertraline HCL 100 MG TABLET PO (09:16)
[2020-07-21] MEDS: clonazePAM 0.5 MG TABLET PO (09:17)
[2020-07-21 18:00] VITALS: BP 125/75; PULSE 97; TEMP 36.9
--- NOTE | 2020-07-21 18:15 | HO.PSYCHPN ---
Subjective Subjective Date of Service: 07/21/20 Reason For Visit: DEPRESSION Subjective Notes: Conditional Voluntary Interim History: SI continues, as active as when admitted Pt feeling medication has not taken effect yet. Anxiety is 3/10. Discussed interventions. Pt discussed sx of anorexia-restrictive without purging, binge eating or laxative use Medication Compliance: Yes Side effects from medications: No Attending Groups: Yes Review of Systems Psychiatric: Reports anxiety, Reports depression, Reports difficulty concentrating, Reports hopelessness, Reports anhedonia, Reports panic attacks (reports 4 attacks since admission) and Reports suicidal ideation Mental Status Exam Mental Status Exam Patient Appearance: Appropriate Patient Orientation: Person, Place, Time and Situation Level of Consciousness: Awake and Alert Patient Behavior: Talkative, Anxious, Fearful, Fatigued and Good Eye Contact Mood Description: Withdrawn, Depressed, Anxious, Nervous and Apprehensive Affect Description: Flat Patient Cognition Impaired: No Ability to Follow Directions: Good Speech Pattern: Appropriate, Spontaneous Speech, Coherent and Soft-Spoken Memory Description: Intact Hallucinations: None Delusions: Not Present Thought Process: Intact and Rumination Thought Content: positive for Intact, positive for Circumstantial, positive for Goal Oriented, positive for Logical and positive for Suicidal Ideation Depressive Symptoms: Increased Anxiety, Difficulty Sleeping, Changes in Appetite, Hopelessness, Feelings of Guilt, Unhappiness, Increased Fatigue, Thoughts of /Suicide, Low Self Esteem, Loss of Energy and Difficulty Concentrating Judgement: Fair Diagnostics Vital Signs (24Hr): Body Mass Index 22.6 Labs Results: 07/01/20 15:51 07/01/20 15:51 Labs: Laboratory Results - last 48 hr 07/21/20 08:12 Fasting Glucose 103 H Medications Medications Current Medications Generic Name Dose Route Start Last Admin Trade Name Freq PRN Reason Stop Dose Admin Acetaminophen 650 mg 07/02/20 13:01 07/10/20 10:29 Acetaminophen 325 Mg Tablet PO 650 mg Q6H PRN Administration Headache/Pain Mild Scale (1-3) Al Hydroxide/Mg Hydroxide 30 ml 07/02/20 13:01 Magnesium Hydrox/Alum Hydrox 30 Ml Oral.Susp PO Q6H PRN Heartburn/Nausea Aripiprazole 5 mg 07/17/20 21:00 07/20/20 21:14 Aripiprazole 5 Mg Tablet PO 5 mg BEDTIME ALIA Administration Clonazepam 0.5 mg 07/17/20 21:00 07/21/20 09:17 Clonazepam 0.5 Mg Tablet PO 0.5 mg BID ALIA Administration Magnesium Hydroxide 30 ml 07/02/20 13:01 Milk Of Magnesia 30 Ml Oral.Susp PO DAILY PRN Constipation Sertraline HCl 100 mg 07/21/20 09:00 07/21/20 09:16 Sertraline Hcl 100 Mg Tablet PO 100 mg DAILY ALIA Administration Trazodone HCl 50 mg 07/02/20 13:01 07/20/20 22:48 Trazodone Hcl 50 Mg Tablet PO 50 mg BEDTIME PRN Administration Insomnia Allergies Allergies Allergy/AdvReac Type Severity Reaction Status Date / Time No Known Allergies Allergy Verified 07/01/20 14:29 Assessment & Plan Assessment & Plan (1) PTSD (post-traumatic stress disorder): Status: Acute Code(s): F43.10 - Post-traumatic stress disorder, unspecified Assessment and Plan: -Increase Klonopin to 1 mg bid (2) Recurrent major depression-severe: Status: Acute Code(s): F33.2 - Major depressive disorder, recurrent severe without psychotic features Assessment and Plan: -Continue current regime (3) Mild restricting type anorexia nervosa: Status: Acute Code(s): F50.01 - Anorexia nervosa, restricting type Assessment and Plan: Discussed referral to [place] for OP Services/PHP. Greater than 50% of the session was spent on counseling and/or coordination of care Reason for contiued inpatient stay Substantial Risk for: harm to self, inability to function and rapid decompensation
[2020-07-21] MEDS: clonazePAM 1 MG TABLET PO (21:57)
[2020-07-21] MEDS: ARIPiprazole 5 MG TABLET PO (21:57)
[2020-07-21] MEDS: Mirtazapine 7.5 MG TABLET 3.75 MG PO (21:58)
[2020-07-22] MEDS: Sertraline HCL 100 MG TABLET PO (09:24)
[2020-07-22] MEDS: clonazePAM 1 MG TABLET PO ×2 (09:24→22:17)
--- NOTE | 2020-07-22 12:31 | HO.PSYCHPN ---
Subjective Subjective Date of Service: 07/22/20 Reason For Visit: DEPRESSION Subjective Notes: Conditional Voluntary Interim History: Rachell reports no adverse effects from medication titration with the exception of decrease in appetite. This sx has subsided with each dosage titration of Sertraline. Discussed hx of restrictive eating sx and some options to explore regarding OP services with [facility] post discharge. Tentative discharge date set for 07/27/20 with pt beginning PHP on 07/28/20. Today, denies active SI plan, intent. Affect is flat, mood depressed, thought process and content are intact and pt is reporting a mixture of feeling relief/loss in taking MLOA. Medication Compliance: Yes Side effects from medications: Yes (decrease in appetite) Attending Groups: Yes Review of Systems Review of Systems Yes all other systems are reviewed and are negative Psychiatric: Reports anxiety, Reports depression, Reports difficulty concentrating, Reports hopelessness, Reports anhedonia, Reports panic attacks and Reports suicidal ideation (no active intent or plan today, no intrusive thoughts of SI today) Mental Status Exam Mental Status Exam Patient Appearance: Appropriate Patient Orientation: Person, Place, Time and Situation Level of Consciousness: Alert Patient Behavior: Appropriate and Good Eye Contact Mood Description: Depressed and Anxious Affect Description: Flat Patient Cognition Impaired: No Speech Pattern: Spontaneous Speech Memory Description: Intact Hallucinations: None Delusions: Not Present Thought Process: Intact Thought Content: positive for Intact and positive for Suicidal Ideation (no intrusive thoughts today, no active intent/plan today) Depressive Symptoms: Increased Anxiety, Changes in Appetite, Feelings of Worthlessness, Hopelessness, Unhappiness, Increased Fatigue, Thoughts of /Suicide, Low Self Esteem, Loss of Energy and Difficulty Concentrating Judgement: Good Diagnostics Vital Signs (24Hr): Vital Signs - 24 hr 07/21/20 18:00 Temperature 98.4 F Pulse Rate 97 Blood Pressure 125/75 Body Mass Index 22.6 Labs Results: 07/01/20 15:51 07/01/20 15:51 Labs: Laboratory Results - last 48 hr 07/21/20 08:12 Fasting Glucose 103 H Medications Medications Current Medications Generic Name Dose Route Start Last Admin Trade Name Freq PRN Reason Stop Dose Admin Acetaminophen 650 mg 07/02/20 13:01 07/10/20 10:29 Acetaminophen 325 Mg Tablet PO 650 mg Q6H PRN Administration Headache/Pain Mild Scale (1-3) Al Hydroxide/Mg Hydroxide 30 ml 07/02/20 13:01 Magnesium Hydrox/Alum Hydrox 30 Ml Oral.Susp PO Q6H PRN Heartburn/Nausea Aripiprazole 5 mg 07/17/20 21:00 07/21/20 21:57 Aripiprazole 5 Mg Tablet PO 5 mg BEDTIME ALIA Administration Clonazepam 1 mg 07/21/20 21:00 07/22/20 09:24 Clonazepam 1 Mg Tablet PO 1 mg BID ALIA Administration Magnesium Hydroxide 30 ml 07/02/20 13:01 Milk Of Magnesia 30 Ml Oral.Susp PO DAILY PRN Constipation Mirtazapine 3.75 mg 07/21/20 21:00 07/21/20 21:58 Mirtazapine 7.5 Mg Tablet PO 3.75 mg BEDTIME ALIA Administration Sertraline HCl 100 mg 07/21/20 09:00 07/22/20 09:24 Sertraline Hcl 100 Mg Tablet PO 100 mg DAILY ALIA Administration Allergies Allergies Allergy/AdvReac Type Severity Reaction Status Date / Time No Known Allergies Allergy Verified 07/01/20 14:29 Assessment & Plan Assessment & Plan (1) PTSD (post-traumatic stress disorder): Status: Acute Code(s): F43.10 - Post-traumatic stress disorder, unspecified Assessment and Plan: Pt managing on the unit with another pt whom she identifies as a trigger for her. She is reviewing [facility] DBT workbook. Discussed OP referrals with her for DBT groups Will attend PHP after discharge for increased work with DBT (2) Recurrent major depression-severe: Status: Acute Code(s): F33.2 - Major depressive disorder, recurrent severe without psychotic features Assessment and Plan: Tolerating regime. Today, no intrusive suicidal thought, plan, intent Continue current regime (3) Mild restricting type anorexia nervosa: Status: Acute Code(s): F50.01 - Anorexia nervosa, restricting type Assessment and Plan: Discussed follow up care with [facility]. Greater than 50% of the session was spent on counseling and/or coordination of care Reason for contiued inpatient stay Substantial Risk for: harm to self and rapid decompensation
[2020-07-22 13:00] VITALS: BP 121/70; PULSE 94; RESP 16; TEMP 36.6; O2SAT 97
[2020-07-22 16:35] VITALS: BP 127/80; PULSE 92; TEMP 36.2
[2020-07-22] MEDS: Mirtazapine 7.5 MG TABLET 3.75 MG PO (22:17)
[2020-07-22] MEDS: ARIPiprazole 5 MG TABLET PO (22:18)
[2020-07-23 07:00] VITALS: BMI 22.4
[2020-07-23 08:37] LABS: Glucose Fasting 88 mg/dL (60-99)
[2020-07-23] MEDS: clonazePAM 1 MG TABLET PO ×2 (09:16→21:29)
[2020-07-23] MEDS: Sertraline HCL 100 MG TABLET PO (09:17)
[2020-07-23 18:00] VITALS: BP 108/67; PULSE 73; TEMP 36.6
--- NOTE | 2020-07-23 19:05 | P.PNPSI_ITS ---
Subjective Subjective Date of Service: 07/24/20 Reason For Visit: DEPRESSION Subjective Notes: Conditional Voluntary Interim History: Met with pt and Michela CHAVARRIA to review processes to complete [employer] application. Letter drafted for Delilah. Today, pt has no issues to discuss with TW- planning discharge for 07/27 with admission to [facility] on 07/28. Medication Compliance: Yes Side effects from medications: No Attending Groups: Yes Review of Systems Review of Systems Yes all other systems are reviewed and are negative Psychiatric: Reports anxiety, Reports change in appetite (improving with zoloft titration pt reports.), Reports depression, Reports hopelessness and Reports suicidal ideation (denies today) Mental Status Exam Mental Status Exam Patient Appearance: Appropriate Patient Orientation: Person, Place and Time Level of Consciousness: Alert Patient Behavior: Appropriate and Talkative Mood Description: Anxious Affect Description: Anxious Patient Cognition Impaired: No Ability to Follow Directions: Good Speech Pattern: Spontaneous Speech Memory Description: Intact Hallucinations: None Delusions: Not Present Thought Process: Distracted, Rumination and Goal Oriented Thought Content: positive for Circumstantial and positive for Goal Oriented Depressive Symptoms: Increased Anxiety, Changes in Appetite (reports improvement), Hopelessness, Unhappiness, Thoughts of /Suicide (denies today) and Low Self Esteem Judgement: Good Diagnostics Vital Signs (24Hr): Body Mass Index 22.4 Labs Results: 07/01/20 15:51 07/01/20 15:51 Labs: Laboratory Results - last 48 hr 07/23/20 08:01 Fasting Glucose 88 Medications Medications Current Medications Generic Name Dose Route Start Last Admin Trade Name Freq PRN Reason Stop Dose Admin Acetaminophen 650 mg 07/02/20 13:01 07/10/20 10:29 Acetaminophen 325 Mg Tablet PO 650 mg Q6H PRN Administration Headache/Pain Mild Scale (1-3) Al Hydroxide/Mg Hydroxide 30 ml 07/02/20 13:01 Magnesium Hydrox/Alum Hydrox 30 Ml Oral.Susp PO Q6H PRN Heartburn/Nausea Aripiprazole 5 mg 07/17/20 21:00 07/22/20 22:18 Aripiprazole 5 Mg Tablet PO 5 mg BEDTIME ALIA Administration Clonazepam 1 mg 07/21/20 21:00 07/23/20 09:16 Clonazepam 1 Mg Tablet PO 1 mg BID ALIA Administration Magnesium Hydroxide 30 ml 07/02/20 13:01 Milk Of Magnesia 30 Ml Oral.Susp PO DAILY PRN Constipation Mirtazapine 3.75 mg 07/21/20 21:00 07/22/20 22:17 Mirtazapine 7.5 Mg Tablet PO 3.75 mg BEDTIME ALIA Administration Sertraline HCl 100 mg 07/21/20 09:00 07/23/20 09:17 Sertraline Hcl 100 Mg Tablet PO 100 mg DAILY ALIA Administration Allergies Allergies Allergy/AdvReac Type Severity Reaction Status Date / Time No Known Allergies Allergy Verified 07/01/20 14:29 Assessment & Plan Assessment & Plan (1) Recurrent major depression-severe: Status: Acute Code(s): F33.2 - Major depressive disorder, recurrent severe without psychotic features Assessment and Plan: -Tolerating regime and titrations. Continue plan of care (2) PTSD (post-traumatic stress disorder): Status: Acute Code(s): F43.10 - Post-traumatic stress disorder, unspecified Assessment and Plan: Learning abut coping/DBT. Will attend [facility] next week (3) Mild restricting type anorexia nervosa: Status: Acute Code(s): F50.01 - Anorexia nervosa, restricting type Assessment and Plan: Improved appetite. Continue to monitor Greater than 50% of the session was spent on counseling and/or coordination of care Patient educated on: therapeutic strategies Informed Consent: understands Reason for contiued inpatient stay Substantial Risk for: harm to self, inability to function and rapid d ecompensation
[2020-07-23] MEDS: ARIPiprazole 5 MG TABLET PO (21:29)
[2020-07-23] MEDS: Mirtazapine 7.5 MG TABLET 3.75 MG PO (21:29)
[2020-07-24] MEDS: Sertraline HCL 100 MG TABLET PO (09:03)
[2020-07-24] MEDS: clonazePAM 1 MG TABLET PO (09:03)
[2020-07-24 10:00] VITALS: BP 129/78; PULSE 98; RESP 18; TEMP 36.7; O2SAT 100
--- NOTE | 2020-07-24 14:48 | HO.PSYCHPN ---
Subjective Subjective Date of Service: 07/24/20 Reason For Visit: DEPRESSION Subjective Notes: Conditional Voluntary Interim History: Pt feeling some sedation-discussed decreasing Klonopin to 0.25 mg a.m. and 0.5 mg hs which she agrees to. Discussion of boundaries today. Pt is overinvolved with another pt and her issues. We discussed her focus, goals, needs. By history pt has focused on others to divert her own pain, issues. Discussed new plans in self care moving forward. Encouraged her to redirect her peers needs to team and ask for assistance if she was having diffiucltly doing so. Planning discharge for 07/[address] [facility] on 07/28. States overall she is feeling improved, denies SI. Medication Compliance: Yes Side effects from medications: No Attending Groups: Yes Review of Systems Review of Systems Yes all other systems are reviewed and are negative (denies) Psychiatric: Reports anxiety (05/27), Reports change in appetite (stabilized she reports) and Reports suicidal ideation (denies) Mental Status Exam Mental Status Exam Patient Appearance: Appropriate Patient Orientation: Person, Place, Time and Situation Level of Consciousness: Alert Patient Behavior: Talkative Mood Description: Anxious Affect Description: Constricted Patient Cognition Impaired: No Speech Pattern: Spontaneous Speech Memory Description: Intact Hallucinations: None Delusions: Not Present Thought Process: Intact and Goal Oriented Thought Content: positive for Intact and positive for Goal Oriented Depressive Symptoms: Low Self Esteem Judgement: Good Diagnostics Vital Signs (24Hr): Vital Signs - 24 hr 07/23/20 18:00 07/24/20 10:00 Temperature 98 F 98.1 F Pulse Rate 73 98 Respiratory Rate 18 Blood Pressure 108/67 129/78 Pulse Oximetry 100 Body Mass Index 22.4 Labs Results: 07/01/20 15:51 07/01/20 15:51 Labs: Laboratory Results - last 48 hr 07/23/20 08:01 Fasting Glucose 88 Medications Medications Current Medications Generic Name Dose Route Start Last Admin Trade Name Freq PRN Reason Stop Dose Admin Acetaminophen 650 mg 07/02/20 13:01 07/10/20 10:29 Acetaminophen 325 Mg Tablet PO 650 mg Q6H PRN Administration Headache/Pain Mild Scale (1-3) Al Hydroxide/Mg Hydroxide 30 ml 07/02/20 13:01 Magnesium Hydrox/Alum Hydrox 30 Ml Oral.Susp PO Q6H PRN Heartburn/Nausea Aripiprazole 5 mg 07/17/20 21:00 07/23/20 21:29 Aripiprazole 5 Mg Tablet PO 5 mg BEDTIME ALIA Administration Clonazepam 0.25 mg 07/25/20 09:00 Clonazepam 0.5 Mg Tablet PO DAILY ALIA Clonazepam 0.5 mg 07/24/20 21:00 Clonazepam 0.5 Mg Tablet PO BEDTIME ALIA Magnesium Hydroxide 30 ml 07/02/20 13:01 Milk Of Magnesia 30 Ml Oral.Susp PO DAILY PRN Constipation Mirtazapine 3.75 mg 07/21/20 21:00 07/23/20 21:29 Mirtazapine 7.5 Mg Tablet PO 3.75 mg BEDTIME ALIA Administration Sertraline HCl 100 mg 07/21/20 09:00 07/24/20 09:03 Sertraline Hcl 100 Mg Tablet PO 100 mg DAILY ALIA Administration Allergies Allergies Allergy/AdvReac Type Severity Reaction Status Date / Time No Known Allergies Allergy Verified 07/01/20 14:29 Assessment & Plan Assessment & Plan (1) PTSD (post-traumatic stress disorder): Status: Acute Code(s): F43.10 - Post-traumatic stress disorder, unspecified (2) Recurrent major depression-severe: Status: Acute Code(s): F33.2 - Major depressive disorder, recurrent severe without psychotic features Assessment and Plan: Improved, symptoms are decreased. Pt focusing on peer's and their issues. Re-directed Continue current regime. Greater than 50% of the session was spent on counseling and/or coordination of care Patient educated on: therapeutic strategies Informed Consent: understands and further education needed Reason for contiued inpatient stay Substantial Risk for: harm to self and rapid decompensation
[2020-07-24 18:00] VITALS: BP 115/68; PULSE 94; TEMP 36.6
[2020-07-24] MEDS: Mirtazapine 7.5 MG TABLET 3.75 MG PO (21:48)
[2020-07-24] MEDS: ARIPiprazole 5 MG TABLET PO (21:49)
[2020-07-24] MEDS: clonazePAM 0.5 MG TABLET PO (21:49)
[2020-07-25] MEDS: clonazePAM 0.5 MG TABLET 0.25 MG PO (08:52)
[2020-07-25] MEDS: Sertraline HCL 100 MG TABLET PO (08:52)
--- NOTE | 2020-07-25 10:42 | HO.PSYCHPN ---
Subjective Subjective Date of Service: 07/25/20 Reason For Visit: DEPRESSION Interim History: Pt tolerating decrease in Klonopin Pt continues to be overinvolved with another pt inviting the other patient to vacation with her in the future. . Planning discharge for 07/27 with transition to [facility] on 07/28. States overall she is feeling improved, denies SI. Review of Systems Review of Systems Yes all other systems are reviewed and are negative (denies) Constitutional: Reports as per HPI and Reports no additional constitutional complaints Eyes: Reports as per HPI and Reports no additional eye complaints Reports system reviewed and no additional complaints, except as documented and Reports as per HPI Cardiovascular: Reports as per HPI and Reports no additional cardiovascular complaints Respiratory: Reports as per HPI and Reports no additional respiratory complaints Gastrointestinal: Reports as per HPI and Reports no additional gastrointestinal complaints Musculoskeletal: Reports no additional musculoskeletal complaints and Reports as per HPI Reports system reviewed and no additional complaints, except as documented, Reports as per HPI and Reports behavioral changes Psychiatric: Reports no additional psychiatric complaints, Reports as per HPI, Reports abnormal sleep pattern, Reports anxiety (05/27), Reports behavioral changes, Reports change in appetite (stabilized she reports), Reports depression, Reports difficulty concentrating, Reports hopelessness, Reports irritability, Reports anhedonia, Reports panic attacks and Reports suicidal ideation (denies) Mental Status Exam Mental Status Exam Patient Appearance: Appropriate Patient Orientation: Person, Place, Time and Situation Level of Consciousness: Alert Patient Behavior: Talkative Mood Description: Anxious Affect Description: Constricted Patient Cognition Impaired: No Ability to Follow Directions: Good Speech Pattern: Spontaneous Speech Memory Description: Intact Judgement: Poor (fair- poor) Diagnostics Vital Signs (24Hr): Vital Signs - 24 hr 07/24/20 18:00 Temperature 97.9 F Pulse Rate 94 Blood Pressure 115/68 Body Mass Index 22.4 Labs Results: 07/01/20 15:51 07/01/20 15:51 Medications Medications Current Medications Generic Name Dose Route Start Last Admin Trade Name Freq PRN Reason Stop Dose Admin Acetaminophen 650 mg 07/02/20 13:01 07/10/20 10:29 Acetaminophen 325 Mg Tablet PO 650 mg Q6H PRN Administration Headache/Pain Mild Scale (1-3) Al Hydroxide/Mg Hydroxide 30 ml 07/02/20 13:01 Magnesium Hydrox/Alum Hydrox 30 Ml Oral.Susp PO Q6H PRN Heartburn/Nausea Aripiprazole 5 mg 07/17/20 21:00 07/24/20 21:49 Aripiprazole 5 Mg Tablet PO 5 mg BEDTIME ALIA Administration Clonazepam 0.25 mg 07/25/20 09:00 07/25/20 08:52 Clonazepam 0.5 Mg Tablet PO 0.25 mg DAILY ALIA Administration Clonazepam 0.5 mg 07/24/20 21:00 07/24/20 21:49 Clonazepam 0.5 Mg Tablet PO 0.5 mg BEDTIME ALIA Administration Magnesium Hydroxide 30 ml 07/02/20 13:01 Milk Of Magnesia 30 Ml Oral.Susp PO DAILY PRN Constipation Mirtazapine 3.75 mg 07/21/20 21:00 07/24/20 21:48 Mirtazapine 7.5 Mg Tablet PO 3.75 mg BEDTIME ALIA Administration Sertraline HCl 100 mg 07/21/20 09:00 07/25/20 08:52 Sertraline Hcl 100 Mg Tablet PO 100 mg DAILY ALIA Administration Allergies Allergies Allergy/AdvReac Type Severity Reaction Status Date / Time No Known Allergies Allergy Verified 07/01/20 14:29 Assessment & Plan Assessment & Plan (1) PTSD (post-traumatic stress disorder): Status: Acute Code(s): F43.10 - Post-traumatic stress disorder, unspecified (2) Recurrent major depression-severe: Status: Acute Code(s): F33.2 - Major depressive disorder, recurrent severe without psychotic features Assessment and Plan: Improved, symptoms are decreased. Pt focusing on peer's and their issues. Re-directed Continue current regime. plan for step down to PHP Greater than 50% of the session was spent on counseling and/or coordination of care Reason for contiued inpatient stay Substantial Risk for: harm to self, inability to function and med/psych decompensation
[2020-07-25 18:00] VITALS: BP 117/79; PULSE 94; RESP 16; TEMP 36.7
[2020-07-25] MEDS: clonazePAM 0.5 MG TABLET PO (21:32)
[2020-07-25] MEDS: Mirtazapine 7.5 MG TABLET 3.75 MG PO (21:32)
[2020-07-25] MEDS: ARIPiprazole 5 MG TABLET PO (21:32)
[2020-07-26 07:50] VITALS: BP 101/70; PULSE 110; RESP 16; TEMP 36.6; O2SAT 97
[2020-07-26] MEDS: clonazePAM 0.5 MG TABLET 0.25 MG PO (08:52)
[2020-07-26] MEDS: Sertraline HCL 100 MG TABLET PO (08:52)
--- NOTE | 2020-07-26 17:24 | HO.PSYCHPN ---
Subjective Subjective Date of Service: 07/26/20 Reason For Visit: DEPRESSION Interim History: Pt appears anxious and fearful. Pt continues to be over-involved with another pt but showing better boundary control. Planning discharge for 07/27 with transition to [facility] on 07/28. States overall she is feeling improved, denies SI. Review of Systems Review of Systems Yes all other systems are reviewed and are negative (denies) Constitutional: Reports as per HPI and Reports no additional constitutional complaints Eyes: Reports as per HPI and Reports no additional eye complaints Reports system reviewed and no additional complaints, except as documented and Reports as per HPI Cardiovascular: Reports as per HPI and Reports no additional cardiovascular complaints Respiratory: Reports as per HPI and Reports no additional respiratory complaints Gastrointestinal: Reports as per HPI and Reports no additional gastrointestinal complaints Musculoskeletal: Reports no additional musculoskeletal complaints and Reports as per HPI Reports system reviewed and no additional complaints, except as documented, Reports as per HPI and Reports behavioral changes Psychiatric: Reports no additional psychiatric complaints, Reports as per HPI, Reports abnormal sleep pattern, Reports anxiety (05/27), Reports behavioral changes, Reports change in appetite (stabilized she reports), Reports depression, Reports difficulty concentrating, Reports hopelessness, Reports irritability, Reports anhedonia, Reports panic attacks and Reports suicidal ideation (denies) Mental Status Exam Mental Status Exam Patient Appearance: Appropriate Patient Orientation: Person, Place, Time and Situation Level of Consciousness: Alert Patient Behavior: Talkative Mood Description: Anxious Affect Description: Constricted Patient Cognition Impaired: No Ability to Follow Directions: Good Speech Pattern: Spontaneous Speech Memory Description: Intact Judgement: Fair Diagnostics Vital Signs (24Hr): Vital Signs - 24 hr 07/25/20 18:00 07/26/20 07:50 Temperature 98.1 F 97.8 F Pulse Rate 94 110 H Respiratory Rate 16 16 Blood Pressure 117/79 101/70 Pulse Oximetry 97 Body Mass Index 22.4 Labs Results: 07/01/20 15:51 07/01/20 15:51 Medications Medications Current Medications Generic Name Dose Route Start Last Admin Trade Name Freq PRN Reason Stop Dose Admin Acetaminophen 650 mg 07/02/20 13:01 07/10/20 10:29 Acetaminophen 325 Mg Tablet PO 650 mg Q6H PRN Administration Headache/Pain Mild Scale (1-3) Al Hydroxide/Mg Hydroxide 30 ml 07/02/20 13:01 Magnesium Hydrox/Alum Hydrox 30 Ml Oral.Susp PO Q6H PRN Heartburn/Nausea Aripiprazole 5 mg 07/17/20 21:00 07/25/20 21:32 Aripiprazole 5 Mg Tablet PO 5 mg BEDTIME ALIA Administration Clonazepam 0.25 mg 07/25/20 09:00 07/26/20 08:52 Clonazepam 0.5 Mg Tablet PO 0.25 mg DAILY ALIA Administration Clonazepam 0.5 mg 07/24/20 21:00 07/25/20 21:32 Clonazepam 0.5 Mg Tablet PO 0.5 mg BEDTIME ALIA Administration Magnesium Hydroxide 30 ml 07/02/20 13:01 Milk Of Magnesia 30 Ml Oral.Susp PO DAILY PRN Constipation Mirtazapine 3.75 mg 07/21/20 21:00 07/25/20 21:32 Mirtazapine 7.5 Mg Tablet PO 3.75 mg BEDTIME ALIA Administration Sertraline HCl 100 mg 07/21/20 09:00 07/26/20 08:52 Sertraline Hcl 100 Mg Tablet PO 100 mg DAILY ALIA Administration Allergies Allergies Allergy/AdvReac Type Severity Reaction Status Date / Time No Known Allergies Allergy Verified 07/01/20 14:29 Assessment & Plan Assessment & Plan (1) PTSD (post-traumatic stress disorder): Status: Acute Code(s): F43.10 - Post-traumatic stress disorder, unspecified Assessment and Plan: continue current meds plan for step down to PHP encourage boundary setting and keeping (2) Recurrent major depression-severe: Status: Acute Code(s): F33.2 - Major depressive disorder, recurrent severe without psychotic features Assessment and Plan: Improved, symptoms are decreased. Pt focusing on peer's and their issues. Re-directed Continue current regime. plan for step down to PHP Greater than 50% of the session was spent on counseling and/or coordination of care Reason for contiued inpatient stay Substantial Risk for: harm to self, inability to function and med/psych decompensation
[2020-07-26 18:00] VITALS: BP 134/90; PULSE 107; TEMP 36.5
[2020-07-26] MEDS: clonazePAM 0.5 MG TABLET PO (20:44)
[2020-07-26] MEDS: Mirtazapine 7.5 MG TABLET 3.75 MG PO (20:44)
[2020-07-26] MEDS: ARIPiprazole 5 MG TABLET PO (20:45)
[2020-07-26 23:24] LABS: IDNOW Serial# 9DD0AD1C
[2020-07-26 23:25] LABS: COVID-19 Test Negative (Negative)
[2020-07-27] MEDS: clonazePAM 0.5 MG TABLET 0.25 MG PO (09:19)
[2020-07-27] MEDS: Sertraline HCL 100 MG TABLET PO (09:19)
--- NOTE | 2020-07-27 11:16 | PC.NURSE ---
PT IS AWARE AND READY FOR DISCHARGE. PT HAS BEEN EDUCATED ON HER MEDICATIONS AND PARTIAL PROGRAM. PT DENIES ANY DEPRESSION. PT HAS NO URGE TO HARM HERSELF OR OTHERS. PT HAS BEEN PLEASANT AND IN BEHAVIORAL CONTROL. PT DOES STILL HAVE INTERMITTENT ANXIETY.
--- NOTE | 2020-07-27 11:36 | PM.PSYDC ---
DS: Providers Provider Date of Service: 08/09/20 Date of admission: 07/02/20 13:01 Date of discharge: 07/27/20 Primary care physician: Unknown Physician Admitting clinician: Darleen Dangelo Attending physician on admission: Vick Young Attending physician on discharge: Vick Young Discharging clinician: Darleen Dangelo DS: Diagnosis Discharge Diagnosis (1) PTSD (post-traumatic stress disorder): Status: Acute Problem details: Trauma history beginning in childhood (2) Recurrent major depression-severe: Status: Acute Problem details: 19 yo female, hx of depression since age 13 with social anxiety and worry, called 911 after an intentional overdose of one bottle of wine and # 4 Percocet with the intent to . Pt reports this is her first attempt-she has always been suicidal but has never acted upon it. Precipitants are unclear. 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 Reports disruption in sleep, terms this revenge bedtime procrastination and restrictive eating at times. DS: Medications Discharge Medications Home Medications: Previous Rx's Medication Instructions Recorded aripiprazole [Abilify] 5 mg PO BEDTIME #15 tab 07/27/20 clonazepam 0.25 mg PO DAILY 14 Days #7 tab 07/27/20 clonazepam 0.5 mg PO BEDTIME #15 tab 07/27/20 mirtazapine 3.75 mg PO BEDTIME #7 tab 07/27/20 sertraline 100 mg PO DAILY #15 tab 07/27/20 Discharge Plan Discharge Anticipated Discharge Date/Time: 07/27/20 13:00 Patient Disposition: Home, Self-Care Discharge Diagnosis: PTSD Recurrent Major Depression, Severe Referrals: Partial Hospitalization Program (PHP) [Other] - 07/28/20 7:30 am (Program is over video. You will start the same day as your intake. If any problems with the email link for intake, call above number immediately to troubleshoot) [facility] (therapy & psychiatry) [Other] (When you get home, email pictures of your BC/BS insurance card and photo ID to the email listed above. Once those are received, the intake office will register you and provide therapy and psychiatry appointments) Physician,Unknown [Primary Care Provider] - Discharge Medications: New clonazepam 0.5 mg Tablet 0.25 mg PO DAILY 14 Days Qty: 7 RF: 1 clonazepam 0.5 mg Tablet 0.5 mg PO BEDTIME Qty: 15 RF: 1 aripiprazole [Abilify] 5 mg Tablet 5 mg PO BEDTIME Qty: 15 RF: 1 mirtazapine 7.5 mg Tablet 3.75 mg PO BEDTIME Qty: 7 RF: 1 No Action sertraline [Zoloft] 100 mg tablet 150 mg PO DAILY Qty: 45 RF: 0 Discharge Orders: Discharge Order (Routine); Ordered 07/27/20 Ordered By: Darleen Dangelo Diet: advance to usual diet Activity on Discharge: As tolerated Stand Alone Forms: Patient Portal Discharge page, Community Support Care Plan Goals: Mood stabilization Health Concerns: PTSD Recurrent Major Depression, Severe Plan of Treatment: Partial Hospital Program, 07/28/20. Out pt psychotherapy and psychopharmacology with [facility] Consider DBT with [facility] If you are interested in further assessment of your restrictive eating symptoms, please call [facility], [address] [place] [address], [address], [place] [address] . Please call or return as needed. If you need further paperwork for your MLOA from [employer], please call and we can assist you in meeting their requirements. Assessment: Pt is willing to begin partial hospital program on 07/28/20. She will have a telephone therapy session this afternoon with her therapist assigned from [employer]. Discharge Date/Time: 07/27/20 12:00 Mental Status Exam Mental Status Exam Patient Appearance: Appropriate Patient Orientation: Person, Place, Time and Situation Level of Consciousness: Alert Patient Behavior: Talkative Mood Description: Constricted Affect Description: Constricted Patient Cognition Impaired: No Ability to Follow Directions: Good Speech Pattern: Spontaneous Speech Memory Description: Intact Hallucinations: None Delusions: Not Present Thought Process: Intact Thought Content: positive for Intact Depressive Symptoms: Increased Anxiety Judgement: Good Data Data Completed and Pending Completed studies during hospitalization [Text1]: 07/21/20 07/23/20 07/26/20 08:12 08:01 22:39 Fasting Glucose 103 H 88 COVID-19 (KIM) Negative COVID-19 Clin Com See Note DS: Summary Hospital Course Hospital Course: Pt was admitted on a conditional voluntary. She worked with the nursing and social service teams to learn about her symptoms, causes of her symptoms and management. With her social group worker, she negotiated with Delilah to take a medical leave of absence, planning a return in the 2020 and still planning to graduate on her original time schedule. Pt was able to meet with her uncle, whom she lives with to tell him of her attempt and how she was managing her depression. He offered support and experience as he had experienced some similiar symptoms in the past. Pt kept regular contact with mother via phone, however, discussed that parents were not that supportive as they had several current stressors that they were managing at this time. Pt experienced sx of panic while admitted which she learned to manage with skills and assistance from medication. She was introduced to DBT therapy skills and will pursue this as an out patient as she will attend partial hospital program and look into the [facility] DBT program upon discharge. During her hospitalization, Sertraline was initiated and titrated for depression, anxiety and PTSD, Klonopin was initiated and titrated for anxiety and panic sx management, Abilify was initiated and titrated for augmentation of Sertraline and Mirtazapine was initiated for assistance with sleep and anxiety management. Time spent discussing smoking cessation with patient: 3 to 10 minutes Status at Discharge Cognitive/behavioral status at discharge: alert, oriented, denies SI, denies HI, no symptoms of psychosis, affect and mood constricted. Functional status at discharge: independent ambulation Overall status at discharge: patient is progressing back to baseline Time Spent with Patient Time attestation: Total time spent providing and/or coordinating discharge services: 35 Time spent: Greater than 30 minutes
== END 2020-07-27 12:00 | disposition home or self-care (01) | DRG 751 ==
LOC: HO.ED 07-02 00:21 → HO.PM5 07-02 13:17
PROVIDERS: Clinical Nurse Specialist Psychiatric/Mental Health; Physician Assistant; Admitting Provider Psychiatry & Neurology Psychiatry; Emergency Provider Emergency Medicine Emergency Medical Services; Visit Provider Clinical Nurse Specialist Psychiatric/Mental Health, Adult
DX: F33.2 Major depressive disorder, recurrent severe without psychotic features (principal); R45.851 Suicidal ideations; F43.10 Post-traumatic stress disorder, unspecified; Z20.822 Contact with and (suspected) exposure to COVID-19; Z23 Encounter for immunization; Z79.899 Other long term (current) drug therapy
CPT/HCPCS: 36415; 80053; 80061; 80076; 80307; 80320; 81003; 81025; 82607; 82746; 82947; 83036; 84439; 84443; 85025; 87635; 90686; 99232; 99285

== ENCOUNTER 2020-08-21 08:30 | Outpatient (RCR) | payer BC, MEDICAID, SELFPAY ==
[2020-07-29 11:57] VITALS: BMI 22.4
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
--- NOTE | 2020-07-30 15:03 | PC.NURSE ---
I called and LM for Ramya Fam, pt's therapist at [facility] ([phone]) informing her of pt's successful discharge from [facility]. I let her know that pt declined a referral to a DBT group.
--- NOTE | 2020-08-04 14:37 | HO.PHPPROGNO ---
Subjective Subjective Date of Service: 08/04/20 Reason For Visit: depression Interim History: The patient reported dysphoria late in the afternoon and she is still anxious but able to cope with stressors assertively. She is attending groups and she is more functional Medication Compliance: Yes Side effects from medications: No Attending Groups: Yes Review of Systems Review of Systems Yes all other systems are reviewed and are negative Mental Status Exam Mental Status Exam Patient Appearance: Well Grooomed Patient Orientation: Person, Place, Time and Situation Level of Consciousness: Awake Patient Behavior: Appropriate Mood Description: Calm Affect Description: Constricted Patient Cognition Impaired: No Ability to Follow Directions: Good Speech Pattern: Clear Memory Description: Intact Hallucinations: None Delusions: Not Present Thought Process: Goal Oriented Thought Content: positive for Circumstantial Depressive Symptoms: Increased Fatigue Judgement: Fair Diagnostics Vital Signs (24Hr): Body Mass Index 22.4 Assessment & Plan Assessment & Plan (1) Recurrent major depression-severe: Status: Acute Code(s): F33.2 - Major depressive disorder, recurrent severe without psychotic features Assessment and Plan: The patient has improved with Zoloft and other medication that target her depression and anxiety but she still has residual anxiety and dysphoria at the end of the day. Since she has been on Zoloft 100 mg for more than 2 weeks, she agreed on the plan below: Plan: 1. Increase Zoloft up to 150 mg po qam 2. REst the same. 3. F/U in 1 week Certification I certify that partial hospital treatment is medically necessary due to the symptoms and problems resulting from the patient's mental illness and the failure to treat the patient at the partial hospital level of care would likely result in the patient requiring inpatient psychiatric care which could not be prevented at a less intensive level of care. Greater than 50% of the session was spent on counseling and/or coordination of care Discharge Plan Discharge Attending provider: Kennedy Middleton Medications: New sertraline [Zoloft] 100 mg tablet 150 mg PO DAILY Qty: 45 RF: 0 Discontinued sertraline 100 mg Tablet 100 mg PO DAILY Qty: 15 RF: 1 No Action clonazepam 0.5 mg Tablet 0.25 mg PO DAILY 14 Days Qty: 7 RF: 1 clonazepam 0.5 mg Tablet 0.5 mg PO BEDTIME Qty: 15 RF: 1 aripiprazole [Abilify] 5 mg Tablet 5 mg PO BEDTIME Qty: 15 RF: 1 mirtazapine 7.5 mg Tablet 3.75 mg PO BEDTIME Qty: 7 RF: 1 Telehealth Telehealth Location of provider rendering services: practice address Location of patient: address on file Patient Identification confirmed using: Name, : No Telehealth method: video Patient verbally consented to treatment: Yes Patient verbally consented to billing insurance company: Yes Patient informed of any privacy concerns related to visit: No Time spent with patient (mins): 15
--- NOTE | 2020-08-13 13:40 | HO.PHPPROGNO ---
Subjective Subjective Date of Service: 08/13/20 Reason For Visit: depression Interim History: The patient reported that she is doing very well with the increase of Zoloft. No safety concerns. Medication Compliance: Yes Side effects from medications: No Attending Groups: Yes Review of Systems Acute medical concerns: Yes Medical Review of Systems: unchanged Mental Status Exam Mental Status Exam Patient Appearance: Well Grooomed Patient Orientation: Person, Place, Time and Situation Level of Consciousness: Awake Patient Behavior: Appropriate and Cooperative Mood Description: Calm Affect Description: Withdrawn Patient Cognition Impaired: No Ability to Follow Directions: Good Speech Pattern: Clear Memory Description: Intact Hallucinations: None Delusions: Not Present Thought Process: Goal Oriented Thought Content: positive for Intact Judgement: Fair Diagnostics Vital Signs (24Hr): Body Mass Index 22.4 Assessment & Plan Assessment & Plan (1) Recurrent major depression-severe: Status: Acute Code(s): F33.2 - Major depressive disorder, recurrent severe without psychotic features (2) PTSD (post-traumatic stress disorder): Status: Acute Code(s): F43.10 - Post-traumatic stress disorder, unspecified Assessment and Plan: Young adult female with MDD and anxiety, recently discharged from inpatient.] Plan: Keep same treatment Certification I certify that partial hospital treatment is medically necessary due to the symptoms and problems resulting from the patient's mental illness and the failure to treat the patient at the partial hospital level of care would likely result in the patient requiring inpatient psychiatric care which could not be prevented at a less intensive level of care. Greater than 50% of the session was spent on counseling and/or coordination of care Discharge Plan Discharge Attending provider: Kennedy Middleton Medications: New sertraline [Zoloft] 100 mg tablet 150 mg PO DAILY Qty: 45 RF: 0 Discontinued sertraline 100 mg Tablet 100 mg PO DAILY Qty: 15 RF: 1 No Action clonazepam 0.5 mg Tablet 0.25 mg PO DAILY 14 Days Qty: 7 RF: 1 clonazepam 0.5 mg Tablet 0.5 mg PO BEDTIME Qty: 15 RF: 1 aripiprazole [Abilify] 5 mg Tablet 5 mg PO BEDTIME Qty: 15 RF: 1 mirtazapine 7.5 mg Tablet 3.75 mg PO BEDTIME Qty: 7 RF: 1 Telehealth Telehealth Location of provider rendering services: practice address Location of patient: address on file Patient Identification confirmed using: Name, : No Telehealth method: video Patient verbally consented to treatment: Yes Patient verbally consented to billing insurance company: Yes Patient informed of any privacy concerns related to visit: No Time spent with patient (mins): 15
--- NOTE | 2020-08-20 14:37 | PC.NURSE ---
Rachell called at 1320 and stated she felt like she was getting manic as she forgot to take her Zoloft and Klonopin this morning. Patient reports after group she went for a walk and had a burst of energy and ran into the [place] and stopped to look at a stream. She reports some self harming thoughts however stated she did not harm herself and does not want to harm herself. Patient stated she is safe. Advised patient to take Zoloft and Klonopin now since she missed the medications this morning. Medication education provided. Patient's last day in the program is tomorrow. Yvonne Ruiz will check in with patient tomorrow morning regarding if she needs more time in the program.
--- NOTE | 2020-08-21 10:47 | PC.NURSE ---
Patient feels ready for discharge from the program today. Reviewed patient's medications with patient and tips on how to remember to take them. Medication education provided.
--- NOTE | 2020-08-21 12:52 | P.PNPSP_ITS ---
Subjective Subjective Date of Service: 08/21/20 Reason For Visit: depression Interim History: The patient reports euthymia, no side effects with the current treatment. She is been discharged today from the program. No safety concerns. Medication Compliance: Yes Side effects from medications: No Attending Groups: Yes Mental Status Exam Mental Status Exam Patient Appearance: Well Grooomed Patient Orientation: Person, Place, Time and Situation Level of Consciousness: Awake Patient Behavior: Appropriate and Cooperative Mood Description: Calm Affect Description: Appropriate Patient Cognition Impaired: No Ability to Follow Directions: Good Speech Pattern: Clear Memory Description: Intact Hallucinations: None Delusions: Not Present Thought Process: Goal Oriented Thought Content: positive for Intact Judgement: Fair Diagnostics Vital Signs (24Hr): Body Mass Index 22.4 Assessment & Plan Assessment & Plan (1) Recurrent major depression-severe: Status: Acute Code(s): F33.2 - Major depressive disorder, recurrent severe without psychotic features Assessment and Plan: Young adult female with MDD, referred from [facility] for continuation of care, currently stable with the current regimen, discharged from the program today. Certification I certify that partial hospital treatment is medically necessary due to the symptoms and problems resulting from the patient's mental illness and the failure to treat the patient at the partial hospital level of care would likely result in the patient requiring inpatient psychiatric care which could not be prevented at a less intensive level of care. Greater than 50% of the session was spent on counseling and/or coordination of care Discharge Plan Discharge Attending provider: Kennedy Middleton Medications: New sertraline [Zoloft] 100 mg tablet 150 mg PO DAILY Qty: 45 RF: 0 mirtazapine 7.5 mg tablet 7.5 mg PO DAILY 7 Days Qty: 7 RF: 0 clonazepam [Klonopin] 0.5 mg tablet 0.5 mg PO BEDTIME 14 Days Qty: 21 RF: 1 Continued aripiprazole [Abilify] 5 mg Tablet 5 mg PO BEDTIME Qty: 15 RF: 1 Discontinued clonazepam 0.5 mg Tablet 0.25 mg PO DAILY 14 Days Qty: 7 RF: 1 clonazepam 0.5 mg Tablet 0.5 mg PO BEDTIME Qty: 15 RF: 1 sertraline 100 mg Tablet 100 mg PO DAILY Qty: 15 RF: 1 mirtazapine 7.5 mg Tablet 3.75 mg PO BEDTIME Qty: 7 RF: 1 Stand Alone Forms: Patient Portal Discharge page Telehealth Telehealth Location of provider rendering services: practice address Location of patient: address on file Patient Identification confirmed using: Name, : No Telehealth method: video Patient verbally consented to treatment: Yes Patient verbally consented to billing insurance company: Yes Patient informed of any privacy concerns related to visit: No Time spent with patient (mins): 15
--- NOTE | 2020-08-21 15:22 | PC.NURSE ---
I called and left a message for pt's therapist at [facility], DEON Ceballos ([phone]). I let her know about pt's successful discharge from [facility] today. DEON Alvarez is scheduled to start seeing pt on 08/25/20.
== END 2020-08-24 08:37 | disposition home or self-care (01) ==
LOC: HO.PHPA 08:30
PROVIDERS: Visit Provider Psychiatry & Neurology Psychiatry
DX: F33.2 Major depressive disorder, recurrent severe without psychotic features (principal); Z79.899 Other long term (current) drug therapy
CPT/HCPCS: 90853

== ENCOUNTER 2022-12-15 15:33 | Outpatient (AMB) | payer BC, MEDICAID, SELFPAY ==
--- NOTE | 2022-12-15 15:52 | MHC.OFFWIV ---
Intake Vital Signs 12/15/22 15:59 Weight 154 lb BP 100/68 Blood Pressure Location Lt brachial Position Sitting Pulse 78 Pulse Source Pulse Oximeter Temp 98.6 F Temp Source Oral Pulse Oximetry (%) 98 Oxygen Delivery Method Room Air Intake Visit Reasons: [employer] Cough [phone] Intake Note: Patient here for recent covid exposure on monday but has been interacting with pts who are covid positive and is now experiencing sore throat, cough, sneezing, and body aches. Patient Tobacco Use Status: Never used Tobacco Allergies No Known Allergies Allergy (Verified 12/15/22 15:53) Do you need a note to return to daycare/school/sports/work: Yes HPI HPI Comments History of Present Illness Details 21-year-old female that presents for cough congestion chills with known COVID exposure. Patient states she has been expose several times to COVID recently she did rapid test on Monday after her most recent exposure to new places negative. Since then she has developed symptoms and is requesting a COVID test. Denies chest pain shortness of breath. [facility] Medical History Anxiety Depression Mild restricting type anorexia nervosa PTSD (post-traumatic stress disorder) Recurrent major depression-severe TBI (traumatic brain injury) Surgical History H/O wisdom tooth extraction Social History Household Members: Family Household Members Other:: uncle Housing: House Do you presently have visiting nurse or other home services: No Alcohol intake: unknown Patient Tobacco Use Status: Never used Tobacco Second Hand Smoke Exposure: Yes (none current, father smoked growing up) service: No Sexual orientation: did not discuss. Review of Systems Const All systems reviewed & are unremarkable except as noted in HPI and below ENT Reports nasal congestion, Reports nasal discharge and Reports sore throat Resp Reports cough Physical Exam Vital Signs: Last Vital Signs Temp 98.6 F 12/15/22 15:59 Pulse 78 12/15/22 15:59 BP 100/68 12/15/22 15:59 Pulse Ox 98 12/15/22 15:59 Oxygen Delivery Method Room Air 12/15/22 15:59 Const General: healthy appearing, no acute distress and alert HEENT Head: Yes normal to inspection Ears: hearing grossly normal bilaterally Resp Effort & Inspection: normal respiratory effort and able to speak in complete sentences Cardio Rate: regular rate Assessment & Plan Assessment & Plan (1) Upper respiratory infection: Code(s): J06.9 - Acute upper respiratory infection, unspecified Plan patient present with COVID symptoms at the COVID exposure. Patient had negative on tests 48 hours ago prior to the experience of symptoms. Over test ordered also recommended patient to the local pharmacy to steel pickler rapid test up Discharge instructions, follow up and treatment are discussed with patient in my usual fashion. Alternatives in treatment are also discussed. The patient will return for worsening symptoms or as needed. Advised that any labs/imaging ordered will be followed up on and contact made if further treatment needed. Counseled that patient's condition may require further evaluation and/or treatment. Symptoms of concern for worsening disorder discussed in detail in my customary manner. Patient does verbalize understanding of the plan, there are no apparent barriers to communication. The patient is given the opportunity to ask questions and have them answered to his/her satisfaction Orders: Orders BinaxNOW Covid-19 Ag Today J06.9 - Acute upper respiratory infection, unspecified Coding Level of Care Code New Pt Level 3 (33790) Diagnoses Upper respiratory infection J06.9
[2022-12-15 15:59] VITALS: BP 100/68; PULSE 78; TEMP 37; O2SAT 98
== END 2022-12-15 16:15 | disposition home or self-care (01) ==
PROVIDERS: Visit Provider Physician Assistant
DX: J06.9 Acute upper respiratory infection, unspecified (principal)
CPT/HCPCS: 99203

== ENCOUNTER 2022-12-15 16:55 | Outpatient (REF) | payer BC, MEDICAID, SELFPAY ==
[2022-12-15 17:36] LABS: COVID-19 Test Negative (Negative); IDNOW Serial# BCCEAD1C
== END 2022-12-15 16:56 | disposition home or self-care (01) ==
LOC: HO.LAB 16:55
PROVIDERS: Visit Provider Physician Assistant
DX: Z20.822 Contact with and (suspected) exposure to COVID-19 (principal); J06.9 Acute upper respiratory infection, unspecified
CPT/HCPCS: 87635

== ENCOUNTER 2023-03-14 15:21 | Outpatient (REF) | payer MEDICAID, SELFPAY ==
[2023-03-15 14:45] LABS: CT PCR NOT DETECTED (Not Detect.); NG PCR NOT DETECTED (Not Detect.)
== END 2023-03-14 15:22 | disposition home or self-care (01) ==
LOC: HO.HMGCLNP 15:21
PROVIDERS: Visit Provider Internal Medicine
DX: Z20.2 Contact with and (suspected) exposure to infections with a predominantly sexual mode of transmission (principal)
CPT/HCPCS: 0353U

== ENCOUNTER 2023-03-14 15:21 | Outpatient (AMB) | payer MEDICAID, SELFPAY ==
--- NOTE | 2023-03-14 16:17 | AM.OFFWIN_ITS ---
Intake Vital Signs 03/14/23 16:23 Weight 124 lb 2 oz BP 110/62 Blood Pressure Location Rt brachial Position Sitting Pulse 70 Pulse Source Pulse Oximeter Temp 97.9 F Temp Source Temporal Artery Scan Pulse Oximetry (%) 98 Oxygen Delivery Method Room Air Intake Visit Reasons: EST/std testing [phone] Intake Note: pt is here requesting STD screening Patient Tobacco Use Status: Never used Tobacco Allergies No Known Allergies Allergy (Verified 03/15/23 06:07) Medication List - Last Reconciled 03/15/23 by Rudy Lopez MD clonazepam (Klonopin) 0.5 mg PO BEDTIME 14 days mirtazapine 7.5 mg PO DAILY 7 days sertraline (Zoloft) 200 mg PO DAILY Do you need a note to return to daycare/school/sports/work: Yes HPI EST/std testing [phone] HPI Details 22 yr old female presents to the office for a sick visit. She is in the process of starting a new relationship. Would like to be tested for STD's. Reports no sx. Heterosexual, multiple partners in the past. [facility] Medical History Anxiety Depression Mild restricting type anorexia nervosa PTSD (post-traumatic stress disorder) Recurrent major depression-severe TBI (traumatic brain injury) Surgical History H/O wisdom tooth extraction Social History Household Members: Family Household Members Other:: uncle Housing: House Do you presently have visiting nurse or other home services: No Alcohol intake: unknown Comment: pt sleeping Patient Tobacco Use Status: Never used Tobacco Second Hand Smoke Exposure: Yes (none current, father smoked growing up) service: No Sexual orientation: did not discuss. Physical Exam Vital Signs: Last Vital Signs Temp 97.9 F 03/14/23 16:23 Pulse 70 03/14/23 16:23 BP 110/62 03/14/23 16:23 Pulse Ox 98 03/14/23 16:23 Oxygen Delivery Method Room Air 03/14/23 16:23 Const General: cooperative, healthy appearing, comfortable and no acute distress Assessment & Plan Assessment & Plan (1) Screening examination for infectious disease: Code(s): Z11.9 - Encounter for screening for infectious and parasitic diseases, unspecified Plan: Urine and blood work ordered. Counselling on safe sex methods done. 15 minutes spent. Orders: Orders CT NG by PCR 03/14/23 Z11.9 - Encounter for screening for infectious and parasitic diseases, unspecified Syphilis Screen 03/14/23 Z11.9 - Encounter for screening for infectious and parasitic diseases, unspecified Coding Level of Care Code Est Pt Level 3 (94570) Diagnoses Screening examination for infectious disease Z11.9
[2023-03-14 16:23] VITALS: BP 110/62; PULSE 70; TEMP 36.6; O2SAT 98
== END 2023-03-14 17:00 | disposition home or self-care (01) ==
PROVIDERS: Visit Provider Internal Medicine
DX: Z11.9 Encounter for screening for infectious and parasitic diseases, unspecified (principal)
CPT/HCPCS: 99213

== ENCOUNTER 2023-03-22 13:40 | Outpatient (REF) | payer MEDICAID, SELFPAY ==
[2023-03-23 04:42] LABS: Syphilis Screen Nonreactive (Nonreactive)
== END 2023-03-22 13:41 | disposition home or self-care (01) ==
LOC: HO.HMGCLDS 13:40
PROVIDERS: Visit Provider Internal Medicine
DX: Z11.9 Encounter for screening for infectious and parasitic diseases, unspecified (principal)
CPT/HCPCS: 36415; 86780

== ENCOUNTER 2024-01-09 10:17 | Outpatient (AMB) | payer BC, SELFPAY ==
[2024-01-09 10:23] VITALS: BP 108/70; PULSE 88; TEMP 37; O2SAT 97; BMI 26.0
--- NOTE | 2024-01-09 10:23 | AM.OFFWIN_ITS ---
Intake Vital Signs 01/09/24 10:23 Height 5 ft Weight 133 lb BMI 26.0 BP 108/70 Blood Pressure Location Rt brachial Position Sitting Pulse 88 Pulse Source Pulse Oximeter Temp 98.6 F Temp Source Oral Pulse Oximetry (%) 97 Oxygen Delivery Method Room Air Intake Visit Reasons: EP-lt foot injury Intake Note: pt c/o LT foot pain. Started last night. Walking and twisted foot. [place] popping and crunching noises Patient Tobacco Use Status: Never used Tobacco Allergies No Known Allergies Allergy (Verified 01/09/24 10:23) Do you need a note to return to daycare/school/sports/work: No HPI HPI Comments History of Present Illness Details Patient is a 23-year-old female who states she tripped over ?nothing? yesterday while she was walking in her toes went under her foot and her foot launched forward and she hurts some cracking and popping. She states it hurts to put any pressure on the left side of her left foot at all. She states she can not walk on it. She has not tried any ibuprofen or ice to try to make it feel better. COUNTS INCLUDE 234 BEDS AT THE [facility] Medical History Anxiety Depression Mild restricting type anorexia nervosa PTSD (post-traumatic stress disorder) Recurrent major depression-severe TBI (traumatic brain injury) Surgical History H/O wisdom tooth extraction Social History Household Members: Family Household Members Other:: uncle Housing: House Do you presently have visiting nurse or other home services: No Alcohol intake: unknown Comment: pt sleeping Patient Tobacco Use Status: Never used Tobacco Second Hand Smoke Exposure: Yes (none current, father smoked growing up) service: No Sexual orientation: did not discuss. Physical Exam Vital Signs: Last Vital Signs Temp 98.6 F 01/09/24 10:23 Pulse 88 01/09/24 10:23 BP 108/70 01/09/24 10:23 Pulse Ox 97 01/09/24 10:23 Oxygen Delivery Method Room Air 01/09/24 10:23 BMI result Body Mass Index 26.0 Const General: cooperative, healthy appearing, comfortable and no acute distress Orientation/consciousness: patient oriented x3 Limitations: wheelchair ((does not use at baseline)) HEENT Head: Yes normal to inspection Resp Effort & Inspection: normal respiratory effort and able to speak in complete sentences Neuro General: patient oriented x3 Extrem Left lower extremity: foot Details: normal capillary refill, tenderness Location: of the dorsal foot and of the lateral foot, toes with normal ROM, no edema, ecchymosis dorsal lateral mid , vascular exam Details: dorsalis pedis pulse present and normal capillary refill, tendon exam Details: active flexion normal and active extension normal and motor-sensory exam Details: light-touch normal; no unusual warmth, no abrasions and no lacerations Assessment & Plan Assessment & Plan (1) Foot pain, left: Code(s): M79.672 - Pain in left foot Plan: see below (2) Metatarsal fracture: Code(s): S92.309A - Fracture of unspecified metatarsal bone(s), unspecified foot, initial encounter for closed fracture Qualifiers: Encounter type: initial encounter Fracture alignment: nondisplaced Fracture type: closed Laterality: left Metatarsal bone: fifth Qualified Code(s): S92.355A - Nondisplaced fracture of fifth metatarsal bone, left foot, initial encounter for closed fracture Plan: Unclear if [place] fracture, sent to ortho PA to review. We will place the pa tient in a walking boot and gave her crutches and send a STAT referral to Orthopedics for follow-up. Recommended rest ice ibuprofen as needed. Gave the patient the phone number and address of [facility] so she could ensure proper timely follow-up. Plan see above Orders: Orders XR foot LT min 3V Today M79.672 - Pain in left foot Referrals Orthopedics Referral S92.355A - Nondisplaced fracture of fifth metatarsal bone, left foot, initial encounter for closed fracture Coding Level of Care Code New Pt Level 4 (67342) Diagnoses Foot pain, left M79.672 Closed nondisplaced fracture of fifth metatarsal bone of left foot, initial encounter S92.355A Encounter type: initial encounter Fracture alignment: nondisplaced Fracture type: closed Laterality: left Metatarsal bone: fifth
== END 2024-01-09 11:44 | disposition home or self-care (01) ==
PROVIDERS: Visit Provider Physician Assistant
DX: M79.672 Pain in left foot (principal); S92.355A Nondisplaced fracture of fifth metatarsal bone, left foot, initial encounter for closed fracture

== ENCOUNTER → 2024-01-09 10:17 | Outpatient (BNVA) | payer BC, SELFPAY | DX: M79.672 Pain in left foot (principal) ==

== ENCOUNTER 2024-01-09 10:50 | Outpatient (REF) | payer BC, SELFPAY ==
--- NOTE | ~2024-01-09 | XR_ITS ---
EXAMINATION: XR FOOT, LEFT CLINICAL INFORMATION: Left foot pain COMPARISON: None available. TECHNIQUE: AP, lateral, and oblique views of the left foot. FINDINGS: BONES: Horizontal Y-shaped branching radiolucency is seen at the base of left fifth metatarsal tuberosity extending to the proximal articular surface. JOINTS: Alignment of joints is normal. SOFT TISSUE: Soft tissue is normal. No radiopaque foreign body or abnormal air collection is seen. XR/XR foot LT min 3V IMPRESSION: Nondisplaced branching fracture of left fifth metatarsal tuberosity is seen. Electronically signed by: Hiral Morse MD 01/09/2024 12:37 PM EDT
== END 2024-01-09 10:51 | disposition home or self-care (01) ==
LOC: HO.HMGCX 10:50
PROVIDERS: Visit Provider Physician Assistant
DX: S92.355A Nondisplaced fracture of fifth metatarsal bone, left foot, initial encounter for closed fracture (principal); W18.30XA Fall on same level, unspecified, initial encounter; Y93.01 Activity, walking, marching and hiking; Y92.9 Unspecified place or not applicable; Y99.9 Unspecified external cause status
CPT/HCPCS: 73630

== ENCOUNTER 2024-01-11 14:15 | Outpatient (AMB) | payer BC, SELFPAY ==
--- NOTE | 2024-01-11 14:26 | MHC.OFFVIS ---
Vital Signs 01/11/24 14:32 Height 5 ft Weight 133 lb BMI 26.0 Intake Visit Reasons: OUTPATIENT SERVICES DIRECTOR - fx 5th metatarsal lt foot, Intake Note: Rachell is a 23 year old female who presents today for a evaluation of her left foot fx, DOI 01/08/24. Patient reports she was walking and twisted her foot. She mentions that she heard popping and crunching noise. Patient states her pain is better today than before. She mentions having some swelling around her foot. Denies numbness and tingling. Allergies No Known Allergies Allergy (Verified 01/09/24 10:23) HPI HPI OUTPATIENT SERVICES DIRECTOR - fx 5th metatarsal lt foot,: Details: 23-year-old female who presents in the office today, as a new patient, for an evaluation of a left fifth metatarsal fracture. The patient presented to the [facility] [place] on 01/09/24 status post left foot injury which occurred on 01/08/24. She reported experiencing popping and cracking when she tripped over ?nothing? while she was walking on her toes, which went under her foot. X-rays were obtained. She was placed in a walking boot and supplied with crutches. She was recommended rest, ice, and OTC ibuprofen PRN for pain relief. While in the office today, the patient reports her left foot pain has improved today than before. She mentions having mild edema in the left foot. She denies any numbness or tingling. [facility] Medical History Anxiety Depression Mild restricting type anorexia nervosa PTSD (post-traumatic stress disorder) Recurrent major depression-severe TBI (traumatic brain injury) Surgical History H/O wisdom tooth extraction Social History Household Members: Family Household Members Other:: uncle Housing: House Do you presently have visiting nurse or other home services: No Alcohol intake: current Alcohol intake frequency: holidays/special occasions only Comment: pt sleeping Patient Tobacco Use Status: Never used Tobacco Second Hand Smoke Exposure: Yes (none current, father smoked growing up) service: No Current occupational status: employed Current occupation: Home Health Aid Sexual orientation: did not discuss. Review of Systems Const All systems reviewed & are unremarkable except as noted in HPI and below Physical Exam Vital Signs: BMI result Body Mass Index 26.0 Const General: cooperative and no acute distress Orientation/consciousness: patient oriented x3 Resp Effort & Inspection: normal respiratory effort and able to speak in complete sentences Cardio Peripheral pulses: Peripheral pulses 2+ throughout Skin General skin exam: no rashes or lesions noted Neuro General: patient oriented x3 Extrem Other: Left foot: Normal to inspection. No ecchymosis, erythema, or edema. Tenderness to palpation at the base of 5th metatarsal the fracture site. Able to slightly dorsiflex and plantarflex but is limited due to pain. NVI. Office Procedures Fracture Care Fracture Billing Code: Fracture Billing Code Assessment & Plan Assessment & Plan (1) Fracture of base of fifth metatarsal bone of left foot: Code(s): S92.352A - Displaced fracture of fifth metatarsal bone, left foot, initial encounter for closed fracture Category: Medical Plan Ms. Mccurdy is a 23-year-old female who presents in the office today, as a new patient, for an evaluation of a left fifth metatarsal fracture. The patient presented to the [facility] [place] on 01/09/24 status post left foot injury which occurred on 01/08/24. She reported experiencing popping and cracking when she tripped over ?nothing? while she was walking on her toes, which went under her foot. X-rays were obtained. She was placed in a walking boot and supplied with crutches. She was recommended rest, ice, and OTC ibuprofen PRN for pain relief. While in the office today, the patient reports her left foot pain has improved today than before. She mentions having mild edema in the left foot. She denies any numbness or tingling. Dr. Ocampo was available to speak with me but not available to see the patient and a collaborative treatment plan was made. The patient will continue to wear the short walking boot and she may weight bear as tolerated. A referral to physical therapy for made in the office to work on ROM and gait training. She was given a work note to remain out of work until her follow-up. She currently works as a home health aid. Follow up will be in 4 weeks with repeat x-rays, or sooner if needed. X-rays of the left foot, obtained on 01/09/24, revealed: Nondisplaced branching fracture of left fifth metatarsal tuberosity is seen. Patient Instructions: Scribed by Thais Judd registered medical assistant, for Katy Jaquez PA-C on 01/11/24 at 2:50 pm EST. Coding Level of Care Code New Pt Level 4 (58791) Diagnoses Fracture of base of fifth metatarsal bone of left foot S92.352A CPT Codes Fracture Care - Fracture Billing Code: Fracture Billing Code ([id number])
[2024-01-11 14:32] VITALS: BMI 26.0
== END 2024-01-11 14:49 | disposition home or self-care (01) ==
PROVIDERS: Visit Provider Physician Assistant
DX: S92.352A Displaced fracture of fifth metatarsal bone, left foot, initial encounter for closed fracture (principal)
CPT/HCPCS: 99203

== ENCOUNTER → 2024-01-11 14:15 | Outpatient (BNVA) | payer BC, SELFPAY | PROVIDERS: Visit Provider Physician Assistant ==

== ENCOUNTER 2024-02-09 09:43 | Outpatient (REF) | payer BC, SELFPAY ==
--- NOTE | ~2024-02-09 | XR_ITS ---
EXAMINATION: XR FOOT LEFT 3 VIEWS CLINICAL INFORMATION: Pain in unspecified foot M79.673. COMPARISON: XR Left foot 01/09/2024 TECHNIQUE: AP, lateral, and oblique views of the left foot. FINDINGS: Again demonstrated is a comminuted but nondisplaced fracture through the base of the fifth metatarsal. There is minimal overlying soft tissue swelling. XR/XR foot LT min 3V IMPRESSION: Fifth metatarsal fracture. Electronically signed by: Benja Cadet MD 03/27/2024 09:37 AM EST
== END 2024-02-09 09:44 | disposition home or self-care (01) ==
LOC: HO.HOSX 09:43
PROVIDERS: Visit Provider Physician Assistant
DX: M79.673 Pain in unspecified foot (principal)
CPT/HCPCS: 73630

== ENCOUNTER 2024-02-09 09:52 | Outpatient (AMB) | payer BC, SELFPAY ==
--- NOTE | 2024-02-09 09:57 | A.OFFVIS_ITS ---
Intake Visit Reasons: OV fx 5th metatarsal lt foot, Intake Note: Rachell is a 23 year old female who presents to the office today for fx 5th metatarsal of her left foot. Pt states she has been able to bear weight on her left foot. She has been feeling better, little to no pain. Allergies No Known Allergies Allergy (Verified 02/09/24 10:02) HPI HPI OV fx 5th metatarsal lt foot,: Details: 23-year-old female who presents in the office today for a follow-up of left fifth metatarsal fracture, status post left foot injury, which occurred on 01/08/24. I last saw the patient in the office on 01/11/24 when she was referred to physical therapy. She was encouraged to continue wearing the short walking boot and to may weight bear as tolerated. She was advised to remain out of work until her follow up, and a work note was provided to her. While in the office today, the patient reports improved left foot pain with mild to no pain. She has been able to bear weight in her left foot. [facility] Medical History Anxiety Depression Mild restricting type anorexia nervosa PTSD (post-traumatic stress disorder) Recurrent major depression-severe TBI (traumatic brain injury) Surgical History H/O wisdom tooth extraction Social History Household Members: Family Household Members Other:: uncle Housing: House Do you presently have visiting nurse or other home services: No Alcohol intake: current Alcohol intake frequency: holidays/special occasions only Comment: pt sleeping Patient Tobacco Use Status: Never used Tobacco Second Hand Smoke Exposure: Yes (none current, father smoked growing up) service: No Current occupational status: employed Current occupation: Home Health Aid Sexual orientation: did not discuss. Review of Systems Const All systems reviewed & are unremarkable except as noted in HPI and below Physical Exam Const General: cooperative, healthy appearing and no acute distress Resp Effort & Inspection: normal respiratory effort and able to speak in complete sentences Cardio Rate: regular rate Peripheral pulses: Peripheral pulses 2+ throughout GI Palpation (GI): Soft to palpation Skin Lesions: no lesions Rashes: no rashes Extrem Other: Left foot: Normal to inspection. No ecchymosis, erythema, or edema. No tenderness to palpation at the base of the fifth metatarsal at the fracture site. The patient is able to demonstrate dorsiflexion, plantar flexion, pronation and supination. Negative anterior drawer. Sensation intact. Pedal pulse intact. Assessment & Plan Assessment & Plan (1) Fracture of base of fifth metatarsal bone of left foot: Code(s): S92.352A - Displaced fracture of fifth metatarsal bone, left foot, initial encounter for closed fracture Category: Medical Plan Ms. Pichardo is a 23-year-old female who presents in the office today for a follow-up of left fifth metatarsal fracture, status post left foot injury, which occurred on 01/08/24. I last saw the patient in the office on 01/11/24 when she was referred to physical therapy. She was encouraged to continue wearing the short walking boot and to may weight bear as tolerated. She was advised to remain out of work until her follow up, and a work note was provided to her. While in the office today, the patient reports improved left foot pain with mild to no pain. She has been able to bear weight in her left foot. The patient can discontinue the boot at this time and transition to a normal supportive shoe. She can return to work, full-time, regular duty, beginning 02/12/2024. Follow-up will be PRN, or sooner if needed. X-rays of the left foot, which were obtained while in the office today and were reviewed by me, Katy Jaquez PA-C, revealed: Routine healing of the left fifth metatarsal fracture. Orders: Orders XR foot LT min 3V Today M79.673 - Pain in unspecified foot Patient Instructions: Scribed by Thais Judd, medical billing associate, for Katy Jaquez PA-C on 02/08/24 at 10:20 am EST. Coding Level of Care Code Global (23222) Diagnoses Fracture of base of fifth metatarsal bone of left foot S92.352A
== END 2024-02-09 10:02 | disposition home or self-care (01) ==
PROVIDERS: Visit Provider Physician Assistant
DX: S92.352A Displaced fracture of fifth metatarsal bone, left foot, initial encounter for closed fracture (principal)
CPT/HCPCS: 99213

== ENCOUNTER 2025-01-27 09:55 | Outpatient (AMB) | payer BC, SELFPAY ==
--- OUTSIDE RECORDS SUMMARY | 2025-01-27 10:03 | XMS_ITS | Encounter Summary ---
Author Organization [facility] Address [address] [place] [id number] Phone Care Team Providers Care Hot Stick Worker Name Role Phone Faith Peterson MD Primary Care Provider [phone] Encounter Details Date Type Department Care Team (Late st Contact Info) Description 12/01/2016 Conversion Encounter [facility] [address] [place] [address] Social History Tobacco Use Types Packs/Day Years Used Date Smoking Tobacco: Never Comments:Never smoker Comments Unknown Sex and Gender Information Value Date Recorded Sex Assigned at Female 11/29/2018 10:56 AM EDT Legal Sex Female 5:12 PM EDT Gender Identity Female 11/29/2018 10:56 AM EDT Sexual Orientation Bisexual 12/02/2019 8: 48 AM EDT documented as of this encounter Plan of Treatment Not on file documented as of this encounter Visit Diagnoses Not on filedocumented in this encounter Care Teams Hot Stick Worker Relationship Specialty Start Date End Date Faith Peterson MD [address] [place] [address] PCP - General Pediatrics 11/28/18 11/21/22 documented as of this encounter
--- OUTSIDE RECORDS SUMMARY | 2025-01-27 10:03 | XMS_ITS | Encounter Summary ---
Author Organization [facility] Address [address] [place] [address] Phone Care Team Providers Care Glue Jointer Operator Name Role Phone Faith Peterson MD Primary Care Provider [phone] Encounter Details Date Type Department Care Team (Late st Contact Info) Description 03/31/2015 Documentation [facility] Family Medicine [address] [place] [address] Family Medicine, Physician [address] [place], [place] [address] Social History Tobacco Use Types Packs/Day Years Used Date Smoking Tobacco: Never Assessed Comments Unknown Sex and Gender Information Value [...] on filedocumented in this encounter Care Teams Glue Jointer Operator Relationship Specialty Start Date End Date Faith Peterson MD [address] [place] [address] PCP - General Pediatrics 11/28/18 11/21/22 documented as of this encounter
--- OUTSIDE RECORDS SUMMARY | 2025-01-27 10:03 | XMS_ITS | Encounter Summary ---
Author Organization [facility] Address [address] [place] [address] Phone Care Team Providers Care Director Of Category Management Name Role Phone Faith Peterson MD Primary Care Provider [phone] Encounter Details Date Type Department Care Team (Late st Contact Info) Description 11/24/[address] [facility] [place] Family Medicine [address] [place] [address] Family Medicine, Physician [address], [place] [address] Social History Tobacco Use Types Packs/Day Years [...] on filedocumented in this encounter Care Teams Director Of Category Management Relationship Specialty Start Date End Date Faith Peterson MD [address] [place] [address] PCP - General Pediatrics 11/28/18 11/21/22 documented as of this encounter
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
--- OUTSIDE RECORDS SUMMARY | 2025-01-27 10:03 | XMS_ITS | Encounter Summary ---
Author Organization [facility] Address [address] [place] [address] Phone Care Team Providers Care Planner Chief Name Role Phone Faith Peterson MD Primary Care Provider [phone] Encounter Details Date Type Department Care Team (Late st Contact Info) Description 02/04/2013 Documentation [facility] [place] [address] [place] [address] Family Medicine, Physician [address] [place], [place] [address] Social History Tobacco Use Types Packs/Day Years [...] on filedocumented in this encounter Care Teams Planner Chief Relationship Specialty Start Date End Date Faith Peterson MD [address] [place] [address] PCP - General Pediatrics 11/28/18 11/21/22 documented as of this encounter
[2025-01-27 10:21] VITALS: BP 92/64; PULSE 89; TEMP 36.7; O2SAT 98; BMI 26.9
--- NOTE | 2025-01-27 10:21 | AM.OFFWIN_ITS ---
Intake Vital Signs 01/27/25 10:21 Height 5 ft Weight 138 lb BMI 26.9 BP 92/64 Blood Pressure Location Lt brachial Position Sitting Pulse 89 Pulse Source Pulse Oximeter Temp 98.1 F Temp Source Oral Pulse Oximetry (%) 98 Oxygen Delivery Method Room Air Intake Visit Reasons: EP-Rt hand finger injury Intake Note: pt presents with pain to right 2nd finger after getting it jammed in a dog leash 2 wks ago Patient Tobacco Use Status: Never used Tobacco Allergies No Known Allergies Allergy (Verified 01/27/25 10:24) Do you need a note to return to daycare/school/sports/work: No HPI HPI Comments History of Present Illness Details History of Present Illness - The patient is a 24-year-old female pr esenting with a finger injury sustained from being caught in a dog's leash. - The injury occurred approximately two weeks ago, resulting in significant swelling initially, which has since decreased. - The patient has been managing the cond ition with icing, ibuprofen, and minimizing use of the affected finger. - The patient reports pain upon flexion beyond a certain point and tenderness in specific areas of the finger. - She is right hand dominant. - She feels like her finger feels swolle n and has a deformity to it. - She denies redness, warmth, numbness, or tingling. Physical Exam General: Cooperative, healthy appearing, comfortable, no acute distress and well developed Orientation: Patient oriented x3 Limitations: No limitations Respiratory: Normal respiratory effort and able to speak in complete sentences. Clear to auscultation bilaterally Cardiovascular: Regular rate and rhythm. Normal S1 and S2. Pulses are 2+ on the UE bilaterally. Skin: No rashes or lesions noted. No abrasions or bruising noted. Neuro: Patient oriented x3. Sensation is intact. Extremities: Slight deformity noted to the right index finger at the DIP joint. TTP of the right 2nd DIP. Flexion and extension of the fingers intact. Cap refill is less than 3 seconds. Patient was informed and verbally consented to the use of an ambient scribe for clinic note documentation during this visit. [facility] Medical History Anxiety Depression Mild restricting type anorexia nervosa PTSD (post-traumatic stress disorder) Recurrent major depression-severe TBI (traumatic brain injury) Surgical History H/O wisdom tooth extraction Social History Household Members: Family Household Members Other:: uncle Housing: House Do you presently have visiting nurse or other home services: No Alcohol intake: current Alcohol intake frequency: holidays/special occasions only Comment: pt sleeping Patient Tobacco Use Status: Never used Tobacco Second Hand Smoke Exposure: Yes (none current, father smoked growing up) service: No Current occupational status: employed Current occupation: [employer] Sexual orientation: did not discuss. Review of Systems Const All systems reviewed & are unremarkable except as noted in HPI and below Physical Exam Vital Signs: Last Vital Signs Temp 98.1 F 01/27/25 10:21 Pulse 89 01/27/25 10:21 BP 92/64 01/27/25 10:21 Pulse Ox 98 01/27/25 10:21 Oxygen Delivery Method Room Air 01/27/25 10:21 BMI result Body Mass Index 26.9 Results Reviewed Results Reviewed: Reviewed the x-ray in the office Assessment & Plan Assessment & Plan (1) Injury of right index finger: Code(s): S69.91XA - Unspecified injury of right wrist, hand and finger(s), initial encounter Qualifiers: Encounter type: initial encounter Qualified Code(s): S69.91XA - Unspecified injury of right wrist, hand and finger(s), initial encounter Plan Most likely sprain vs fracture plan - Plan to perform an X-ray to assess for any fractures or dislocations. - Consideration for a finger splint based on X-ray findings. - rest, ice and elevation - tylenol or motrin as needed - can refer her to ortho or hand - follow up with PCP Orders: Orders XR finger RT min 2V Today S69.91XA - Unspecified injury of right wrist, hand and finger(s), initial encounter Referrals Orthopedics Referral S62.608A - Fracture of unspecified phalanx of other finger, initial encounter for closed fracture Coding Level of Care Code Est Pt Level 4 (76601) Diagnoses Injury of right index finger, initial encounter S69.91XA Encounter type: initial encounter
== END 2025-01-27 11:53 | disposition home or self-care (01) ==
PROVIDERS: Visit Provider Physician Assistant Medical
DX: S69.91XA Unspecified injury of right wrist, hand and finger(s), initial encounter (principal)

== ENCOUNTER 2025-01-27 09:55 | Outpatient (REF) | payer BC, SELFPAY ==
--- NOTE | ~2025-01-27 | XR_ITS ---
CLINICAL HISTORY: S69.91XA - Unspecified injury of right wrist, hand and finger(s), initia... 3 view right 2nd digit Comparison: None Findings: Likely nondisplaced intra-articular acute fracture of the ulnar dorsal base of the 2nd distal phalanx. Correlate clinically for focal tenderness. Otherwise normal alignment without acute fracture. No radiopaque foreign body. IMPRESSION: Likely nondisplaced intra-articular acute fracture of the ulnar dorsal base of the 2nd distal phalanx. Correlate clinically for focal tenderness. Otherwise normal alignment without acute fracture. This document has been electronically signed by: Yvette Wyatt MD on 01/27/2025 12:45:27
== END 2025-01-27 09:56 | disposition home or self-care (01) ==
LOC: HO.HMGCX 09:55
PROVIDERS: Visit Provider Physician Assistant Medical
DX: S69.91XA Unspecified injury of right wrist, hand and finger(s), initial encounter (principal); X58.XXXA Exposure to other specified factors, initial encounter
CPT/HCPCS: 73140

== ENCOUNTER → 2025-01-27 11:22 | Outpatient (BNV) | payer BC, SELFPAY | PROVIDERS: Visit Provider Radiology Diagnostic Radiology | DX: S62.660A Nondisplaced fracture of distal phalanx of right index finger, initial encounter for closed fracture (principal) | CPT/HCPCS: 73140 ==

== ENCOUNTER 2025-02-05 08:18 | Outpatient (REF) | payer BC, SELFPAY ==
--- NOTE | ~2025-02-05 | XR_ITS ---
CLINICAL HISTORY: M79.641 - Pain in right hand --- Additional Notes or Special Instructions: Attn IF 3 view right hand Comparison: CR - XR FINGER RT MIN 2V - 01/27/25 11:36 EDT Findings: There is a fracture along the medial base of the 1st distal phalanx, similar to prior exam. Soft tissue structures appear intact. IMPRESSION: Acute fracture along the medial base of the 1st distal phalanx, similar to prior exam. This document has been electronically signed by: Marleni Miller on 02/07/2025 09:30:24
--- OUTSIDE RECORDS SUMMARY | 2025-02-05 08:29 | XMS_ITS | Encounter Summary ---
Author Organization [facility] Address [address] [place] [address] Phone Care Team Providers Care Automotive Service Cashier Name Role Phone Faith Peterson MD Primary Care Provider [phone] Encounter Details Date Type Department Care Team (Late st Contact Info) Description 11/24/2015 Documentation [facility] [place] Family Medicine [address] [place] [address] Family Medicine, Physician [address], [place] [address] Social History Tobacco Use Types Packs/Day Years [...] on filedocumented in this encounter Care Teams Automotive Service Cashier Relationship Specialty Start Date End Date Faith Peterson MD [address] [place] [address] PCP - General Pediatrics 11/28/18 11/21/22 documented as of this encounter
--- OUTSIDE RECORDS SUMMARY | 2025-02-05 08:29 | XMS_ITS | Encounter Summary ---
Author Organization [facility] Address [address] [place] [address] Phone Care Team Providers Care Delphi Developer Name Role Phone Faith Peterson MD Primary Care Provider [phone] Encounter Details Date Type Department Care Team (Late st Contact Info) Description 12/01/2016 Conversion Encounter [facility] [place] [address] [place] [address] Social History Tobacco Use Types Packs/Day Years [...] on filedocumented in this encounter Care Teams Delphi Developer Relationship Specialty Start Date End Date Faith Peterson MD [address] [place] [address] PCP - General Pediatrics 11/28/18 11/21/22 documented as of this encounter
--- OUTSIDE RECORDS SUMMARY | 2025-02-05 08:29 | XMS_ITS | Encounter Summary ---
Author Organization [facility] Address [address] [place] [address] Phone Care Team Providers Care Clinical Lab Clerk Name Role Phone Faith Peterson MD Primary Care Provider [phone] Encounter Details Date Type Department Care Team (Late st Contact Info) Description 03/31/2015 Documentation [facility] [place] [address] [place], [place] [id number] Family Medicine, Physician [address], [place] [address] Social History Tobacco Use Types Packs/Day Years [...] on filedocumented in this encounter Care Teams Clinical Lab Clerk Relationship Specialty Start Date End Date Faith Peterson MD [address] [place] [address] PCP - General Pediatrics 11/28/18 11/21/22 documented as of this encounter
--- OUTSIDE RECORDS SUMMARY | 2025-02-05 08:29 | XMS_ITS | Encounter Summary ---
Author Organization [facility] Address [address] [address] Phone Care Team Providers Care Beveler Name Role Phone Faith Peterson MD Primary Care Provider [phone] Encounter Details Date Type Department Care Team (Late st Contact Info) Description 02/04/2013 Documentation [facility] [place] Family Medicine [address] [place] [address] Family Medicine, Physician [address], [place] [address] Social History Tobacco Use Types Packs/Day Years [...] on filedocumented in this encounter Care Teams Beveler Relationship Specialty Start Date End Date Faith Peterson MD [address] [place] [address] PCP - General Pediatrics 11/28/18 11/21/22 documented as of this encounter
--- OUTSIDE RECORDS SUMMARY | 2025-02-05 08:29 | XMS_ITS | Clinical Summary ---
Author Organization [facility] Address [address] [place] [address] Phone Care Team Providers Care Knit Goods Cutter Hand Name Role Phone Unavailable Primary Care Provider [...] Completed 12/02/2019, 11/29/2018 Procedures * Due to [place] law, this organization might not be sharing sensitive test results. Procedure Name Priority Date/Time Associated Diagnosis Comments SURESWAB (ADV) VAGINITIS PLUS, TMA Routine 04/12/2021 12:12 PM EST Vaginal discharge from Last 3 Months or Most Recently Relevant to Health Maintenance Results * Due to [place] law, this organization might not be sharing sensitive test results. * SureSwab (Adv) Vaginitis Plus, TMA (04/12/2021 12:12 PM EST) BACTERIAL VAGINOSIS TEST NEGATIVE (NEG) [facility] Comment: No bacterial vaginosis targets by PCR detected in this patient's sample. Note: This assay uses real time cash applications clerk-mediated amplification (TMA) for detection and quantification of [...] sample. Note: This assay uses real time cash applications clerk-mediated amplification (TMA) for detection and quantification of ribosomal RNA from organisms associated with Marya species group (C. albicans, C. tropicalis, C. parapsilosis, C. dubliniensis), Marya glabrata, and Trichomonas vaginalis. Chlamydia Trachomatis, Amplified NEGATIVE (NEG) [facility] Comment: No Chlamydia Trachomatis RNA detected in this patient's sample (REFERENCE RANGE/NORMAL VALUE: NOT DETECTED) Note: This test uses cash applications clerk- mediated amplification method to detect rRNA from C. Trachomatis N.GONORRHOEAE AMP PROBE NEGATIVE (NEG) [facility] Comment: No Neisseria Gonorrhoeae RNA detected in this patient's sample (REFERENCE RANGE/NORMAL VALUE: NOT DETECTED) NOTE: This test uses cash applications clerk-mediated amplification method to detect rRNA from N.Gonorrhoeae. [...] without risk of sexual abuse. Consult the [facility] if needed. Contact phone number . Therapeutic failure or success cannot be determined with the Aptima Combo2 assay since nucleic acid may persist following appropriate antimicrobial therapy. The Centers for Disease Control and Prevention (CDC) recommends confirmatory retesting using culture or a different nucleic acid amplification test when positive results occur, if indicated. Testing performed or reported by [facility], a Service of [facility], [facility] [place] [address] Jemal Do MD, Associate Genetics Professor [facility]# [id number] Swab 04/12/2021 12:1 2 PM EST 04/12/2021 10:08 PM EST us Faith Peterson MD LAB MICROBIOLOGY - GENERAL ORDER [place] Final Result [facility] from Last 3 Months or Most Recently Relevant to Health Maintenance
== END 2025-02-05 08:19 | disposition home or self-care (01) ==
LOC: HO.HOSX 08:18
DX: S62.630A Displaced fracture of distal phalanx of right index finger, initial encounter for closed fracture (principal); W23.0XXA Caught, crushed, jammed, or pinched between moving objects, initial encounter
CPT/HCPCS: 73130

== ENCOUNTER 2025-02-05 13:00 | Outpatient (AMB) | payer BC, SELFPAY ==
--- NOTE | 2025-02-05 13:09 | MHC.OFFVIS ---
Vital Signs 02/05/25 13:11 Height 5 ft Weight 138 lb BMI 26.9 Handedness Right Intake Visit Reasons: FC: RT IF Distal Phalanx Fx, DOI: 01/14/25 Intake Note: Rachell is a 24 year old right hand dominant female who presents today for evaluation of a a Right Index Distal Phalanx Fracture, DOI: 01/14/25. Patient presented to [facility] on 01/27/25 reporting her finger got jammed in a dog leash, twisting around her finger. Today, patient states the pain has subsided. She continues wearing the finger splint she was given at the Walk- IN. She denies numbness, tingling, or finger locking. She denies previous injuries or surgeries to the right hand. Allergies No Known Allergies Allergy (Verified 01/27/25 10:24) HPI HPI FC: RT IF Distal Phalanx Fx, DOI: 01/14/25: Details: Rachell is a 24 year old right hand dominant female who presents today for evaluation of a a Right Index Distal Phalanx Fracture, DOI: 01/14/25. Patient presented to [facility] on 01/27/25 reporting her finger got jammed in a dog leash, twisting around her finger. Today, patient states the pain has subsided. She continues wearing the finger splint she was given at the Walk- IN. She denies numbness, tingling, or finger locking. She denies previous injuries or surgeries to the right hand. Patient states that she does not having significant pain in that digit, but states that splinting has been difficult and she has remove the splint for things like showering and sleeping. [facility] Medical History Anxiety Depression Mild restricting type anorexia nervosa PTSD (post-traumatic stress disorder) Recurrent major depression-severe TBI (traumatic brain injury) Surgical History H/O wisdom tooth extraction Social History Household Members: Family Household Members Other:: uncle Housing: House Are you a primary hiv/aids care nurse to a significant other at home: No Do you presently have visiting nurse or other home services: No Alcohol intake: current Alcohol intake frequency: holidays/special occasions only Comment: pt sleeping Patient Tobacco Use Status: Never used Tobacco Second Hand Smoke Exposure: No Use of substances other than those prescribed or required for medical reasons: Yes Have you been hit, kicked, punched, or otherwise hurt by someone within the past year? If so, by whom?: No Are you DNR?: No Advance Directives: No Advance Directives Information Provided: Yes Advance Directives on File: No Patient : No : No service: No Current occupational status: unemployed Sexual orientation: did not discuss. Physical Exam Vital Signs: BMI result Body Mass Index 26.9 Extrem Other: Patient is alert, oriented, and in no acute distress. Neuro: Normal sensation of the tips of all digits of the right hand at this time Vascular: Cap refill brisk Pain: No tenderness to palpation about distal phalanx of right index finger Minimal discomfort with range of motion of right index finger ROM: Patient is able to flex and extend all digits of the right hand fully and without difficulty Skin: No lacerations or abrasions. General: No ecchymosis, erythema, or evidence of infection. There is a palpable protrusion of bone at the base of the distal phalanx of the right index finger Psych: Appears grossly normal Affect normal Attitude cooperative Results Reviewed Results Reviewed: X-rays obtained in the office today and independently reviewed by me, Chau Beebe PA-C, demonstrate minimally displaced fracture of the base of the distal phalanx of the right index finger involving approximately 30-40% of the articular surface. Assessment & Plan Assessment & Plan (1) Fracture of distal phalanx of right index finger: Code(s): S62.630A - Displaced fracture of distal phalanx of right index finger, initial encounter for closed fracture Category: Medical Plan 1. Right index finger distal phalanx fracture Date of injury 01/14/2025 I educated the patient about the condition. I discussed both operative and nonoperative treatment options. The patient would like to proceed with surgery. The risks and benefits of operative treatment were discussed with the patient and the patient wishes to proceed with surgery. These risks include, but are not limited to, risk of damage to blood vessels, nerves, tendons, infection, recurrence, incomplete relief of preoperative symptoms, persistent pain, possible need for further surgery, and the risks associated with regional blocks and/or anesthesia. Plan is to take the patient to the operating room at some point in the next few weeks for the following procedures: 1. Right index finger CRPP versus ORIF under general All of the preoperative paperwork including the consent was discussed today. All of the patient's questions were answered in the clinic today. The patient understands that they will be in contact with our neurosurgical physician assistant to discuss scheduling their procedure. Patient denies diabetes, blood thinners, asthma, heart issues, lung issues, kidney issues, or current smoking. Orders: Orders XR hand RT min 3V 02/05/25 M79.641 - Pain in right hand Coding Level of Care Code New Pt Level 4 (99365) Diagnoses Fracture of distal phalanx of right index finger S62.630A
[2025-02-05 13:11] VITALS: BMI 26.9
== END 2025-02-05 14:21 | disposition home or self-care (01) ==
LOC: HO.HOS 13:01
DX: S62.630A Displaced fracture of distal phalanx of right index finger, initial encounter for closed fracture (principal)
CPT/HCPCS: 99204

== ENCOUNTER → 2025-02-05 13:03 | Outpatient (BNV) | payer BC, SELFPAY | PROVIDERS: Visit Provider Radiology Vascular & Interventional Radiology | DX: S62.521A Displaced fracture of distal phalanx of right thumb, initial encounter for closed fracture (principal) | CPT/HCPCS: 73130 ==

== ENCOUNTER 2025-02-06 12:25 | Day surgery (SDC) | payer BC, SELFPAY ==
--- OUTSIDE RECORDS SUMMARY | 2025-02-05 20:22 | XMS_ITS | Encounter Summary ---
Author Organization [facility] Address [address] [place] [address] Phone Care Team Providers Care Copyright Expert Name Role Phone Faith Peterson MD Primary Care Provider [phone] Encounter Details Date Type Department Care Team (Late st Contact Info) Description 02/04/2013 Documentation [facility] [place] [address] [place] [address] Family Medicine, Physician [address] [place] [place], [place] [address] Social History Tobacco Use Types Packs/Day Years [...] on filedocumented in this encounter Care Teams Copyright Expert Relationship Specialty Start Date End Date Faith Peterson MD [address] [place] [address] PCP - General Pediatrics 11/28/18 11/21/22 documented as of this encounter
--- OUTSIDE RECORDS SUMMARY | 2025-02-05 20:22 | XMS_ITS | Encounter Summary ---
Author Organization [facility] Address [address] [place] [address] Phone Care Team Providers Care Vending Enterprises Supervisor Name Role Phone Faith Peterson MD Primary Care Provider [phone] Encounter Details Date Type Department Care Team (Late st Contact Info) Description 03/31/2015 Documentation [facility] Family Medicine [address] [place], [place] [id number] Family Medicine, Physician [address], [place] [address] Social History Tobacco Use Types Packs/Day Years [...] on filedocumented in this encounter Care Teams Vending Enterprises Supervisor Relationship Specialty Start Date End Date Faith Peterson MD [address] [place] [address] PCP - General Pediatrics 11/28/18 11/21/22 documented as of this encounter
--- OUTSIDE RECORDS SUMMARY | 2025-02-05 20:22 | XMS_ITS | Clinical Summary ---
Author Organization [facility] Address [address] [place] [address] Phone Care Team Providers Care Net Mvc Developer Name Role Phone Unavailable Primary Care Provider [...] Completed 12/02/2019, 11/29/2018 Procedures * Due to [place] law, this organization might not be sharing sensitive test results. Procedure Name Priority Date/Time Associated Diagnosis Comments SURESWAB (ADV) VAGINITIS PLUS, TMA Routine 04/12/2021 12:12 PM EST Vaginal discharge from Last 3 Months or Most Recently Relevant to Health Maintenance Results * Due to [place] law, this organization might not be sharing sensitive test results. * SureSwab (Adv) Vaginitis Plus, TMA (04/12/2021 12:12 PM EST) BACTERIAL VAGINOSIS TEST NEGATIVE (NEG) [facility] Comment: No bacterial vaginosis targets by PCR detected in this patient's sample. Note: This assay uses real time dam attendant-mediated amplification (TMA) for detection and quantification of [...] sample. Note: This assay uses real time dam attendant-mediated amplification (TMA) for detection and quantification of ribosomal RNA from organisms associated with Marya species group (C. albicans, C. tropicalis, C. parapsilosis, C. dubliniensis), Marya glabrata, and Trichomonas vaginalis. Chlamydia Trachomatis, Amplified NEGATIVE (NEG) [facility] Comment: No Chlamydia Trachomatis RNA detected in this patient's sample (REFERENCE RANGE/NORMAL VALUE: NOT DETECTED) Note: This test uses dam attendant- mediated amplification method to detect rRNA from C. Trachomatis N.GONORRHOEAE AMP PROBE NEGATIVE (NEG) [facility] Comment: No Neisseria Gonorrhoeae RNA detected in this patient's sample (REFERENCE RANGE/NORMAL VALUE: NOT DETECTED) NOTE: This test uses dam attendant-mediated amplification method to detect rRNA from N.Gonorrhoeae. [...] without risk of sexual abuse. Consult the [facility] if needed. Contact phone number . Therapeutic failure or success cannot be determined with the Aptima Combo2 assay since nucleic acid may persist following appropriate antimicrobial therapy. The Centers for Disease Control and Prevention (CDC) recommends confirmatory retesting using culture or a different nucleic acid amplification test when positive results occur, if indicated. Testing performed or reported by [facility], a Service of [facility], [facility] [place] [address] Jemal Do MD, Home Health Care Respiratory Therapist [facility]# [id number] Swab 04/12/2021 12:1 2 PM EST 04/12/2021 10:08 PM EST us Faith Peterson MD LAB MICROBIOLOGY - GENERAL ORDER AL[place] Final Result [facility] from Last 3 Months or Most Recently Relevant to Health Maintenance
--- OUTSIDE RECORDS SUMMARY | 2025-02-05 20:22 | XMS_ITS | Encounter Summary ---
Author Organization [facility] Address [address] [place] [address] Phone Care Team Providers Care Liquid Yeast Supervisor Name Role Phone Faith Peterson MD Primary Care Provider [phone] Encounter Details Date Type Department Care Team (Late st Contact Info) Description 12/01/2016 Conversion Encounter [facility] [place] [address] [place] [address] Social History Tobacco Use Types Packs/Day Years [...] on filedocumented in this encounter Care Teams Liquid Yeast Supervisor Relationship Specialty Start Date End Date Faith Peterson MD [address] [place] [address] PCP - General Pediatrics 11/28/18 11/21/22 documented as of this encounter
--- OUTSIDE RECORDS SUMMARY | 2025-02-05 20:22 | XMS_ITS | Encounter Summary ---
Author Organization [facility] Address [address] [place] [address] Phone Care Team Providers Care B2B Outside Sales Representative Name Role Phone Faith Peterson MD Primary Care Provider [phone] Encounter Details Date Type Department Care Team (Late st Contact Info) Description 11/24/2015 Documentation [facility] [place] Family Medicine [address] [place] [address] Family Medicine, Physician [address] [place], [place] [address] Social History Tobacco Use Types Packs/Day Years [...] on filedocumented in this encounter Care Teams B2B Outside Sales Representative Relationship Specialty Start Date End Date Faith Peterson MD [address] [place] [address] PCP - General Pediatrics 11/28/18 11/21/22 documented as of this encounter
--- NOTE | ~2025-02-06 | FL_ITS ---
EXAMINATION: XR FLUOROSCOPY WITH IMAGES CLINICAL INFORMATION: CRP P index finger COMPARISON: X-ray 02/05/2025 TECHNIQUE: Fluoroscopy time: 22 seconds DAP: 0.02 mGycm2 Images: 5 FINDINGS: Images obtained during reduction and pinning of second digit distal phalanx fracture. FL/FL guidance in OR IMPRESSION: Fluoroscopy during procedure. See procedure report for additional information. Electronically signed by: Jagdish Lang MD 02/07/2025 01:27 PM EDT
[2025-02-06 12:37] VITALS: BMI 26.9
[2025-02-06 12:49] VITALS: BP 111/70; PULSE 79; RESP 20; TEMP 36.9; O2SAT 98
[2025-02-06 12:52] LABS: UPreg QC Valid YES
[2025-02-06] MEDS: Lactated Ringers 1,000 ML 100 ML IVCONT (12:57)
--- NOTE | 2025-02-06 13:45 | MHC.SHP ---
Pre-Procedural Eval Section A - 24 Hr Update-Section A only Date of Service: 02/06/25 The patient is an INPATIENT: No Changes since office visit: No Cold of Flu in the past 2 weeks, No New Medical Problems, No Changes in Medication and No Patient answered all questions The patient has been examined within 24 hours of the surgical procedure. The History & Physical has been completed within 30 days and I have reviewed it.: Yes Section B - Complete if H&P > 30 days Chief Complaint: Displaced fracture of distal phalanx of right Allergies: Allergies Allergy/AdvReac Type Severity Reaction Status Date / Time No Known Allergies Allergy Verified 01/27/25 10:24 Plan I have reviewed the history and physical and performed a pertinent physical examination on my patient. No changes have occurred unless specified. Time Spent With Patient Time: Total time managing care of this patient today ____ minutes.
--- NOTE | 2025-02-06 13:45 | W.PM.OPN ---
Operative Note Operative Note Date of Service: 02/06/25 Narrative: Operative Note Narrative: Preop diagnosis: 1. Right index finger distal phalanx fracture , intra-articular Postop diagnosis: Same Procedure: 1. Right index finger distal phalanx fracture closed reduction percutaneous pinning Surgeon: Kelly Black MD Water Leak Repairer: None Anesthesia: General Anesthesia Findings: finger fracture Implants: 0.035 K-wires times 2 Tourniquet time: None EBL: Minimal Specimen: None Drains: None Complications: None Disposition: Brought to the recovery room in stable condition Plan: Follow-up in 10-14 days for a wound check, postop radiographs . She can then be taught pin site care and given a finger splint that will allow for PIP motion. Anticipate K-wire removal at 3-4 weeks postop based on interval bony healing Indications: The patient is 24 years old with a right index finger intra-articular distal phalanx fracture . The risks and benefits of operative treatment, including but not limited to risk of damage to blood vessels, nerves, tendons, infection, recurrence, delayed or nonunion of fracture, persistent pain or numbness, incomplete resolution of preoperative symptoms, or need for further surgery were discussed with the patient and they wished to proceed with surgery. Procedure: Once consent was obtained patient was brought back to the operating suite and placed in the operating table in a supine position. . Perioperative antibiotics and general anesthesia was administered by the anesthesia team. A tourniquet was applied to the proximal aspect of the right upper extremity and the limb was prepped and draped in a standard surgical fashion. Tourniquet was not inflated during the case. The FluoroScan was used during the case to assist with our fracture reduction and placement of all implants. A closed reduction was performed on the patient's right index finger distal phalanx fracture. I placed a 0.035 K-wire obliquely through the ulnar base of the index finger distal phalanx. This was advanced distally across the fracture to the radial cortex of the distal phalanx. I did attempt to pass a longitudinal K-wire, but was unable to position it satisfactorily because of the 1st K-wire. I therefore placed a 2nd 0.035 K-wire obliquely from the ulnar cortex of the middle phalanx advancing obliquely and distally across the D IP joint and into the radial cortex of the distal phalanx. Fracture alignment was assessed for both angular and rotational malalignment. Once satisfied with our fracture reduction and implant placement, the K-wires were bent and cut short and pin caps applied. Final fluoroscopic images were then obtained. The wounds were copiously irrigated with normal saline. A digital block was performed by infiltrating about the base of the index finger with some who% plain Marcaine for postop pain control. A Sterile dressing and volar finger splint was applied.. The patient appears to have tolerated the procedure well and with no complications. All digits were well vascularized at the conclusion of the case.
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
[2025-02-06 15:43] VITALS: BP 106/65; PULSE 89; RESP 16; TEMP 36.1; O2SAT 100
[2025-02-06 15:48] VITALS: BP 105/61; PULSE 93; RESP 16; O2SAT 100
[2025-02-06 15:53] VITALS: BP 101/62; PULSE 81; RESP 16; O2SAT 100
[2025-02-06 15:58] VITALS: BP 103/62; PULSE 84; RESP 16; O2SAT 100
[2025-02-06 16:13] VITALS: BP 104/68; PULSE 86; RESP 16; TEMP 36.3; O2SAT 100
== END 2025-02-06 16:33 | disposition home or self-care (01) ==
PROVIDERS: Nurse Practitioner; Visit Provider Orthopaedic Surgery
PROC: (CPT 26756; principal; 2025-02-06 14:10)
DX: S62.630A Displaced fracture of distal phalanx of right index finger, initial encounter for closed fracture (principal); M79.641 Pain in right hand; W23.0XXA Caught, crushed, jammed, or pinched between moving objects, initial encounter; Y93.K1 Activity, walking an animal; Y92.9 Unspecified place or not applicable; Y99.9 Unspecified external cause status; F33.2 Major depressive disorder, recurrent severe without psychotic features; F41.9 Anxiety disorder, unspecified; F50.01 Anorexia nervosa, restricting type; Z68.26 Body mass index [BMI] 26.0-26.9, adult; F43.10 Post-traumatic stress disorder, unspecified; Z87.820 Personal history of traumatic brain injury; Z56.0 Unemployment, unspecified
CPT/HCPCS: 26756; 81025; J0131; J0690; J1100; J1885; J2003; J2004; J2405; J2704; J2795; J3010

== ENCOUNTER → 2025-02-06 12:25 | Outpatient (BNV) | payer BC, SELFPAY | PROVIDERS: Visit Provider Orthopaedic Surgery | DX: S62.630A Displaced fracture of distal phalanx of right index finger, initial encounter for closed fracture (principal) | CPT/HCPCS: 26756 ==

== ENCOUNTER 2025-02-14 23:54 | Emergency (ER) | payer BC, SELFPAY ==
[2025-02-15 00:02] VITALS: BP 109/68; PULSE 103; RESP 20; TEMP 36.8; O2SAT 96; BMI 25.4
--- NOTE | 2025-02-15 00:57 | ED.EXTPRO ---
HPI - Extremity Problem General Chief complaint: Extremity Injury, Upper Stated complaint: right pointer finger procedure Time Seen by Provider: 02/15/25 00:57 History of Present Illness ED Provider: Dr. Nabeel Rodriguez HPI Narrative: 24 year old right hand dominant female with a history anxiety, depression, PTSD, TBI who had a right index finger, displaced, intra-articular distal phalanx fracture 01/14/2025 status post closed reduction with percutaneous pinning on 02/06/[address] Black who presents emergency department for evaluation a cold sensation in unable to feel her index finger. 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 She states she was opening her screen door with her hands and she believes that she may have overdone it. She did not report any specific injury to her finger. At the time my evaluation she states that her finger sensation in his returned to normal. Related Data Home Medications ?Medication ?Instructions ?Recorded ?Confirmed sertraline 100 mg tablet (Zoloft) 200 mg PO DAILY 12/15/22 02/06/25 prazosin 1 mg capsule 1 mg PO BEDTIME 01/27/25 02/06/25 Previous Rx's ?Medication ?Instructions ?Recorded mirtazapine 7.5 mg tablet 7.5 mg PO DAILY 7 days #7 tabs 08/21/20 hydrocodone 5 mg-acetaminophen 325 1 tab PO Q4-6H PRN pain #12 tabs 02/06/25 mg tablet Allergies Allergy/AdvReac Type Severity Reaction Status Date / Time No Known Allergies Allergy Verified 02/15/25 00:05 [facility] Past Medical History Medical History Anxiety Depression Mild restricting type anorexia nervosa PTSD (post-traumatic stress disorder) Recurrent major depression-severe TBI (traumatic brain injury) Surgical History H/O wisdom tooth extraction Social History Social History Household Members: Family Household Members Other:: uncle Housing: House Are you a primary care center manager to a significant other at home: No Do you presently have visiting nurse or other home services: No Alcohol intake: current Alcohol intake frequency: holidays/special occasions only Comment: pt sleeping Patient Tobacco Use Status: Never used Tobacco Second Hand Smoke Exposure: No service: No Current occupational status: unemployed Sexual orientation: did not discuss. Physical Exam Exam: Exam: Right index finger exam: The surgical dressing and splint were removed. The skin is intact, there is no erythema or increased warmth, she has normal light touch sensation to the tip of her finger and along the lateral aspects of the finger. She has normal capillary refill. The percutaneous pins are in place and not disrupted. Vital Signs: Vital Signs: Last Vital Signs Temp 98.2 F 02/15/25 00:02 Pulse 103 H 02/15/25 00:02 Resp 20 02/15/25 00:02 BP 109/68 02/15/25 00:02 Pulse Ox 96 02/15/25 00:02 O2 Del Method Room Air 02/15/25 00:02 BMI result Body Mass Index 25.4 Medical Decision Making Medical Decision Making MDM Narrative: 24 year old right hand dominant female with a history anxiety, depression, PTSD, TBI who had a right index finger, displaced, intra-articular distal phalanx fracture 01/14/2025 status post closed reduction with percutaneous pinning on 02/06/[address] Black who presents emergency department for evaluation a cold sensation in unable to feel her index finger. 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 She states she was opening her screen door with her hands and she believes that she may have overdone it. She did not report any specific injury to her finger. At the time my evaluation she states that her finger sensation in his returned to normal. Examination of the finger revealed no significant abnormalities, fingers neurovascularly intact, percutaneous pins were in place. No evidence for cellulitis. Differential diagnosis: ?Includes but is not limited to cellulitis, neurovascular injury, disruption of surgical pins Course: 01:35 The patient's finger appears to be neurovascularly intact with no disruption of the percutaneous surgical pins. At this time I do not have a clear etiology for the patient's numbness but that has resolved. I did reapply the surgical dressing and Kerlix dressing. These were held in place with Coban. The patient is not able to move her finger and denies any numbness or pain. Patient was advised to keep her surgical follow up appointment with Dr. Black and to contact the office if she has any new symptoms were return to the emergency department for re-evaluation Differential Diagnosis Differential Diagnoses: The differential diagnosis associated with the presentation includes (See above) Admission/Observation Consideration of admission/observation: Escalation of care including admission/observation considered (No) Independent Historian Clinical information obtained from an independent historian. History obtained from or confirmed by: Other (Significant other) Discharge Plan Discharge Clinical Impression: Numbness of finger Patient Disposition: Home, Self-Care Additional Instructions: The finger appears to be normal at this time and I do not think that you have an infection w or that you seriously injured your finger by over using your hand. Keep the splint and dressing on your finger until you are re-evaluated by Dr. Black. If your numbness return or if you have any other symptoms that are concerning to you, call the orthopedic offices number to speak to the on-call provider or return to the emergency department for re-evaluation. Prescriptions: No Action mirtazapine 7.5 mg tablet 7.5 mg PO DAILY 7 Days Qty: 7 0RF hydrocodone-acetaminophen 5-325 mg tablet 1 tab PO Q4-6H PRN (Reason: pain) Qty: 12 0RF Rx Instructions: Partial Fill upon patient request. sertraline [Zoloft] 100 mg tablet 200 mg PO DAILY prazosin 1 mg capsule 1 mg PO BEDTIME Referrals: Kelly Black MD [Physician, Hand Surgery] Referral Note: Right index finger numbness secondary to handing out Halloween candy and opening her screen door in very windy conditions. No evidence for infection, finger neurovascularly intact. Status post closed reduction and pinning base of 2nd distal phalanx right hand on 02/07/2024 Clinical Impression: Numbness of finger Print Language: French
--- OUTSIDE RECORDS SUMMARY | 2025-02-15 01:10 | XMS_ITS | Encounter Summary ---
Author Organization [facility] Address [address] [place] [address] Phone Care Team Providers Care Laborer Filter Plant Name Role Phone Faith Peterson MD Primary Care Provider [phone] Encounter Details Date Type Department Care Team (Late st Contact Info) Description 12/01/2016 Conversion Encounter [facility] [place] [address] [place] [address] Social History Tobacco Use Types Packs/Day Years [...] on filedocumented in this encounter Care Teams Laborer Filter Plant Relationship Specialty Start Date End Date Faith Peterson MD [address] [place] [address] PCP - General Pediatrics 11/28/18 11/21/22 documented as of this encounter
--- OUTSIDE RECORDS SUMMARY | 2025-02-15 01:10 | XMS_ITS | Encounter Summary ---
Author Organization [facility] Address [address] [place] [address] Phone Care Team Providers Care Polisher And Sander Name Role Phone Faith Peterson MD Primary Care Provider [phone] Encounter Details Date Type Department Care Team (Late st Contact Info) Description 11/24/2015 Documentation [facility] [place] Family Medicine [address] [place] [address] Family Medicine, Physician [address] [place], [place] [address] Social History Tobacco Use Types Packs/Day Years [...] on filedocumented in this encounter Care Teams Polisher And Sander Relationship Specialty Start Date End Date Faith Peterson MD [address] [place] [address] PCP - General Pediatrics 11/28/18 11/21/22 documented as of this encounter
--- OUTSIDE RECORDS SUMMARY | 2025-02-15 01:10 | XMS_ITS | Encounter Summary ---
Author Organization [facility] Address [address] [place] [phone] Phone Care Team Providers Care Hostage Negotiator Name Role Phone Faith Peterson MD Primary Care Provider [phone] Encounter Details Date Type Department Care Team (Late st Contact Info) Description 02/04/2013 Documentation [facility] [place] [address] [place] [address] Family Medicine, Physician [address], [place] [id number] Social History Tobacco Use Types Packs/Day Years [...] on filedocumented in this encounter Care Teams Hostage Negotiator Relationship Specialty Start Date End Date Faith Peterson MD [address] [place] [address] PCP - General Pediatrics 11/28/18 11/21/22 documented as of this encounter
--- OUTSIDE RECORDS SUMMARY | 2025-02-15 01:10 | XMS_ITS | Encounter Summary ---
Author Organization [facility] Address [address] [place] [address] Phone Care Team Providers Care Mate First Name Role Phone Faith Peterson MD Primary Care Provider [phone] Encounter Details Date Type Department Care Team (Late st Contact Info) Description 03/31/2015 Documentation [facility] [place] Family Medicine [address] [place] [address] Family Medicine, Physician [address], [place] [id number] Social History Tobacco Use Types Packs/Day Years [...] on filedocumented in this encounter Care Teams Mate First Relationship Specialty Start Date End Date Faith Peterson MD [address] [place] [address] PCP - General Pediatrics 11/28/18 11/21/22 documented as of this encounter
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
[2025-02-15 01:43] VITALS: BP 109/68; PULSE 103; RESP 20; TEMP 36.8; O2SAT 96
== END 2025-02-15 01:43 | disposition home or self-care (01) ==
PROVIDERS: Emergency Provider Emergency Medicine Emergency Medical Services
DX: R20.0 Anesthesia of skin (principal)
CPT/HCPCS: 99282

== ENCOUNTER 2025-02-17 14:04 | Outpatient (REF) | payer BC, SELFPAY ==
--- NOTE | ~2025-02-17 | XR_ITS ---
EXAMINATION: XR HAND, RIGHT CLINICAL INFORMATION: M79.641 - Pain in right hand COMPARISON: Previous x-ray and fluoroscopy exam January 2025 TECHNIQUE: PA, oblique views of the right hand and lateral view of the right second finger. FINDINGS: 2 K wires or pins are seen across the DIP joint and fracture of the distal phalanx of the right second finger. This is similar to fluoroscopy exam. Fracture of the distal phalanx of the second finger intra-articular with the DIP joint is still seen and unchanged in alignment. Soft tissues are unremarkable. XR/XR hand RT min 3V IMPRESSION: ORIF of distal phalanx fracture of the right second finger. Electronically signed by: Marika De Paz MD 02/18/2025 03:20 PM [facility]
== END 2025-02-17 14:05 | disposition home or self-care (01) ==
LOC: HO.HOSX 14:04
PROVIDERS: Visit Provider Orthopaedic Surgery
DX: M79.641 Pain in right hand (principal)
CPT/HCPCS: 73130

== ENCOUNTER 2025-02-18 14:36 | Outpatient (AMB) | payer BC, SELFPAY ==
--- NOTE | 2025-02-18 14:55 | MHC.OFFVIS ---
Vital Signs 02/18/25 14:56 Height 5 ft Weight 130 lb BMI 25.4 Intake Visit Reasons: PO RT IF CRPP vs ORIF 02/06/25 AR Intake Note: Rachell 24 yr old female presents today for her p/o visit S/P right index finger CRPP done with Dr. Black on 02/06/25. Dressing removed in office and xrays updated in office. Patient states her pain is Allergies No Known Allergies Allergy (Verified 02/15/25 00:05) HPI HPI PO RT IF CRPP vs ORIF 02/06/25 AR: Details: Rachell is a 24 year old right hand dominant woman who returns S/P right index finger distal phalanx CRPP, DOS: 02/06/25. She injured her finger from a dog leash, DOI: 01/14/25. She says she is doing [ ]. PFS Medical History Anxiety Depression Mild restricting type anorexia nervosa PTSD (post-traumatic stress disorder) Recurrent major depression-severe TBI (traumatic brain injury) Surgical History H/O wisdom tooth extraction Social History Household Members: Family Household Members Other:: uncle Housing: House Are you a primary healthcare administration intern to a significant other at home: No Do you presently have visiting nurse or other home services: No Alcohol intake: current Alcohol intake frequency: holidays/special occasions only Comment: pt sleeping Patient Tobacco Use Status: Never used Tobacco Second Hand Smoke Exposure: No service: No Current occupational status: unemployed Sexual orientation: did not discuss. Review of Systems Const All systems reviewed & are unremarkable except as noted in HPI and below Physical Exam Vital Signs: BMI result Body Mass Index 25.4 Const General: no acute distress and alert Orientation/consciousness: patient oriented x3 Neuro General: patient oriented x3 Extrem Other: The patient was alert oriented and in no acute distress The incision & pin sites are healing well with no erythema drainage or evidence of infection. Sutures removed and Steri-Strips applied Sensation is intact Cap refill is brisk Radiographs: 3 views for the right hand were taken and viewed by me today in clinic. They show an index finger distal phalanx base fracture with satisfactory fracture alignment and position of 2 K-wires, one holding the DIP joint in extension and other other across the fracture site Psych Appearance: grossly normal Affect: normal affect Attitude: cooperative Assessment & Plan Assessment & Plan (1) Fracture of distal phalanx of right index finger: Code(s): S62.630A - Displaced fracture of distal phalanx of right index finger, initial encounter for closed fracture Category: Medical Plan Assessment & Plan: 1. Right index finger distal phalanx fracture, S/P CRPP DOS: 02/06/25 DOI: 01/14/25 The patient appears to be doing well post-operatively I educated her about the post-operative course She was fitted for a velcro finger splint, to be worn like a cast except for showering for the next 2 weeks. She will remove this to perform pin site care I explained the signs and symptoms of infection, if the patient develops any new or worsening erythema, drainage, pain, or warmth they should contact the clinic or attend the ED. I discussed activity modifications, she is to lift nothing heavier than a cellphone for the next 4 weeks. They should also avoid any heavy impact activities, falls, or sports activities for the next 6 weeks She will perform gentle MCP joint ROM exercises at home, and work on gentle PIP joint ROM exercises when she has removed her splint. No DIP joint ROM. She should avoid any underwater activities at this time She will follow up in 2 weeks, with X-rays, 3V attn R IF, OOP. Anticipate K-wire removal depending on bony healing, and placement in a volar finger splint to allow for PIP joint ROM Scribed for Kelly Black MD by Calvin Munoz, director biomedical engineering, on 02/18/25 at 3:10 PM, EST. Orders: Orders XR hand RT min 3V 02/18/25 M79.641 - Pain in right hand Coding Level of Care Code Global (18747) Diagnoses Fracture of distal phalanx of right index finger S62.630A
[2025-02-18 14:56] VITALS: BMI 25.4
--- OUTSIDE RECORDS SUMMARY | 2025-02-18 17:39 | XMS_ITS | Clinical Summary ---
Author Organization [facility] Address [address] [place] [address] Phone Care Team Providers Care Box Sealing Machine Catcher Name Role Phone Unavailable Primary Care Provider [...] Completed 12/02/2019, 11/29/2018 Procedures * Due to [place] [employer] law, this organization might not be sharing sensitive test results. Procedure Name Priority Date/Time Associated Diagnosis Comments SURESWAB (ADV) VAGINITIS PLUS, TMA Routine 04/12/2021 12:12 PM EST Vaginal discharge from Last 3 Months or Most Recently Relevant to Health Maintenance Results * Due to [place] [employer] law, this organization might not be sharing sensitive test results. * SureSwab (Adv) Vaginitis Plus, TMA (04/12/2021 12:12 PM EST) BACTERIAL VAGINOSIS TEST NEGATIVE (NEG) [facility] Comment: No bacterial vaginosis targets by PCR detected in this patient's sample. Note: This assay uses real time mechanical manager-mediated amplification (TMA) for detection and quantification of [...] sample. Note: This assay uses real time mechanical manager-mediated amplification (TMA) for detection and quantification of ribosomal RNA from organisms associated with Marya species group (C. albicans, C. tropicalis, C. parapsilosis, C. dubliniensis), Marya glabrata, and Trichomonas vaginalis. Chlamydia Trachomatis, Amplified NEGATIVE (NEG) [facility] Comment: No Chlamydia Trachomatis RNA detected in this patient's sample (REFERENCE RANGE/NORMAL VALUE: NOT DETECTED) Note: This test uses mechanical manager- mediated amplification method to detect rRNA from C. Trachomatis N.GONORRHOEAE AMP PROBE NEGATIVE (NEG) [facility] Comment: No Neisseria Gonorrhoeae RNA detected in this patient's sample (REFERENCE RANGE/NORMAL VALUE: NOT DETECTED) NOTE: This test uses mechanical manager-mediated amplification method to detect rRNA from N.Gonorrhoeae. [...] without risk of sexual abuse. Consult the [facility] if needed. Contact phone number . Therapeutic failure or success cannot be determined with the Aptima Combo2 assay since nucleic acid may persist following appropriate antimicrobial therapy. The Centers for Disease Control and Prevention (CDC) recommends confirmatory retesting using culture or a different nucleic acid amplification test when positive results occur, if indicated. Testing performed or reported by [facility], a Service of [facility], [facility] [place] [address] Jemal Do MD, Chief Quality Officer [facility]# [id number] Swab 04/12/2021 12:1 2 PM EST 04/12/2021 10:08 PM EST us Faith Peterson MD LAB MICROBIOLOGY - GENERAL ORDER ALTON Final Result [facility] from Last 3 Months or Most Recently Relevant to Health Maintenance
--- OUTSIDE RECORDS SUMMARY | 2025-02-18 17:40 | XMS_ITS | Encounter Summary ---
Author Organization [facility] Address [address] [place] [address] Phone Care Team Providers Care Flume Ride Operator Name Role Phone Faith Peterson MD Primary Care Provider [phone] Encounter Details Date Type Department Care Team (Late st Contact Info) Description 03/31/2015 Documentation [facility] [place] [address] [place] [address] Family Medicine, Physician [address], [place] [address] Social History Tobacco Use Types Packs/Day Years [...] on filedocumented in this encounter Care Teams Flume Ride Operator Relationship Specialty Start Date End Date Faith Peterson MD [address] [place] [address] PCP - General Pediatrics 11/28/18 11/21/22 documented as of this encounter
--- OUTSIDE RECORDS SUMMARY | 2025-02-18 17:40 | XMS_ITS ---
Author Name [facility] Organization Unknown Encounters Encounter Type Encounter Reason Primary Diagnosis Location Date Emergency VOMITING ALCOHOL USE, UNSPECIFIED WITH INTOXICATION, UNSPECIFIED [facility] 01/30/2022 Care Team Organization Name Specialty Phone Email Start Date End [facility] Unassigned User Primary Care 12/04/2023 [facility] ИВАН ERNST Primary Care 02/24/2019 [facility] UNASSIGNED UNASSIGNED Primary Care 02/24/2019 01/30/2022
--- OUTSIDE RECORDS SUMMARY | 2025-02-18 17:40 | XMS_ITS | Encounter Summary ---
Author Organization [facility] Address [address] [place] [address] Phone Care Team Providers Care Inside Wirer Name Role Phone Faith Peterson MD Primary Care Provider Encounter Details Date Type Department Care Team (Late st Contact Info) Description 12/01/2016 Conversion Encounter [facility] [place] [address] [place] [address] Social History Tobacco Use Types Packs/Day Years [...] on filedocumented in this encounter Care Teams Inside Wirer Relationship Specialty Start Date End Date Faith Peterson MD [address] [place] [address] PCP - General Pediatrics 11/28/18 11/21/22 documented as of this encounter
--- OUTSIDE RECORDS SUMMARY | 2025-02-18 17:40 | XMS_ITS | Encounter Summary ---
Author Organization [facility] Address [address] [place] [address] Phone Care Team Providers Care Hydroblaster Name Role Phone Faith Peterson MD Primary Care Provider [phone] Encounter Details Date Type Department Care Team (Late st Contact Info) Description 02/04/2013 Documentation [facility] [place] [address] [place] [address] Family Medicine, Physician [address] [place], [place] [address] Social History Tobacco Use Types Packs/Day Years [...] on filedocumented in this encounter Care Teams Hydroblaster Relationship Specialty Start Date End Date Faith Peterson MD [address] [place] [address] PCP - General Pediatrics 11/28/18 11/21/22 documented as of this encounter
--- OUTSIDE RECORDS SUMMARY | 2025-02-18 17:40 | XMS_ITS | Encounter Summary ---
Author Organization [facility] Address [address] [place] [address] Phone Care Team Providers Care Pre School Teacher Name Role Phone Faith Peterson MD Primary Care Provider [phone] Encounter Details Date Type Department Care Team (Late st Contact Info) Description 11/24/2015 Documentation [facility] [place] [address] [place] [address] Family Medicine, Physician [address], [place] [address] Social History Tobacco Use Types Packs/Day Years [...] on filedocumented in this encounter Care Teams Pre School Teacher Relationship Specialty Start Date End Date Faith Peterson MD [address] [place] [address] PCP - General Pediatrics 11/28/18 11/21/22 documented as of this encounter
== END 2025-02-18 15:51 | disposition home or self-care (01) ==
LOC: HO.HOS 14:37
PROVIDERS: Visit Provider Orthopaedic Surgery
DX: S62.630A Displaced fracture of distal phalanx of right index finger, initial encounter for closed fracture (principal)
CPT/HCPCS: 99024

== ENCOUNTER → 2025-02-18 14:38 | Outpatient (BNV) | payer BC, SELFPAY | PROVIDERS: Visit Provider Radiology Diagnostic Radiology | DX: S62.630D Displaced fracture of distal phalanx of right index finger, subsequent encounter for fracture with routine healing (principal) | CPT/HCPCS: 73130 ==

== ENCOUNTER 2025-03-05 10:55 | Outpatient (REF) | payer BC, SELFPAY ==
--- NOTE | ~2025-03-05 | XR_ITS ---
EXAMINATION: XR HAND, RIGHT CLINICAL INFORMATION: M79.641 - Pain in right hand COMPARISON: February 18, 2025. TECHNIQUE: PA, lateral, and oblique views of the right hand. FINDINGS: 2 small K wires placed with a ulnar approach to the distal interphalangeal joint and the second digit. There is loosening at the base of the distal phalanx and distal aspect of the middle phalanx of the second digit. There is no periosteal bone reaction or callus formation. No subcutaneous emphysema. There is a metallic ring overlapping the proximal phalanx of the fourth digit. The carpal bones and metacarpal bones are intact. There is asymmetric joint space narrowing, distal interphalangeal joint of the first digit. XR/XR hand RT min 3V IMPRESSION: Loosening versus regional osteoporosis within the K wires of the distal interphalangeal joint second digit. Electronically signed by: Rene Baez MD 03/05/2025 03:35 PM EST
--- OUTSIDE RECORDS SUMMARY | 2025-03-06 16:34 | XMS_ITS | Encounter Summary ---
Author Organization [facility] Address [address] [place] [address] Phone Care Team Providers Care Creasing Machine Operator Name Role Phone Faith Peterson MD Primary Care Provider Encounter Details Date Type Department Care Team (Late st Contact Info) Description 12/01/2016 Conversion Encounter [facility] [place] [address] [place] [address] Social History Tobacco Use Types Packs/Day Years [...] on filedocumented in this encounter Care Teams Creasing Machine Operator Relationship Specialty Start Date End Date Faith Peterson MD [address] [place] [address] PCP - General Pediatrics 11/28/18 11/21/22 documented as of this encounter
--- OUTSIDE RECORDS SUMMARY | 2025-03-06 16:34 | XMS_ITS | Encounter Summary ---
Author Organization [facility] Address [address] [place] [address] Phone Care Team Providers Care Shingle Cutter Name Role Phone Faith Peterson MD Primary Care Provider Encounter Details Date Type Department Care Team (Late st Contact Info) Description 02/04/2013 Documentation [facility] [place] [address] [place] [address] Family Medicine, Physician [address], [place] [address] Social History Tobacco Use Types Packs/Day Years [...] on filedocumented in this encounter Care Teams Shingle Cutter Relationship Specialty Start Date End Date Faith Peterson MD [address] [place] [address] PCP - General Pediatrics 11/28/18 11/21/22 documented as of this encounter
--- OUTSIDE RECORDS SUMMARY | 2025-03-06 16:34 | XMS_ITS | Encounter Summary ---
Author Organization [facility] Address [address] [place] [address] Phone Care Team Providers Care Tester Regulator Name Role Phone Faith Peterson MD Primary Care Provider [phone] Encounter Details Date Type Department Care Team (Late st Contact Info) Description 11/24/2015 Documentation [facility] [place] [address] [place] [address] Family Medicine, Physician [address] [place], [place] [address] Social History Tobacco Use Types Packs/Day Years [...] on filedocumented in this encounter Care Teams Tester Regulator Relationship Specialty Start Date End Date Faith Peterson MD [address] [place] [address] PCP - General Pediatrics 11/28/18 11/21/22 documented as of this encounter
--- OUTSIDE RECORDS SUMMARY | 2025-03-06 16:34 | XMS_ITS | Encounter Summary ---
Author Organization [facility] Address [address] [place] [phone] Phone Care Team Providers Care Roofing Plant Supervisor Name Role Phone Faith Peterson MD Primary Care Provider [phone] Encounter Details Date Type Department Care Team (Late st Contact Info) Description 03/31/2015 Documentation [facility] [place] Family Medicine [address] [place] [address] Family Medicine, Physician [address] [place] [place], [place] [id number] Social History Tobacco Use Types Packs/Day Years [...] on filedocumented in this encounter Care Teams Roofing Plant Supervisor Relationship Specialty Start Date End Date Faith Peterson MD [address] [place] [address] PCP - General Pediatrics 11/28/18 11/21/22 documented as of this encounter
--- OUTSIDE RECORDS SUMMARY | 2025-03-06 16:34 | XMS_ITS | Clinical Summary ---
Author Organization [facility] Address [address] [place] [phone] Phone Care Team Providers Care Lead Operator Name Role Phone Unavailable Primary Care [...] Completed 12/02/2019, 11/29/2018 Procedures * Due to [place] law, this organization might not be sharing sensitive test results. Procedure Name Priority Date/Time Associated Diagnosis Comments SURESWAB (ADV) VAGINITIS PLUS, TMA Routine 04/12/2021 12:12 PM EST Vaginal discharge from Last 3 Months or Most Recently Relevant to Health Maintenance Results * Due to [place] law, this organization might not be sharing sensitive test results. * SureSwab (Adv) Vaginitis Plus, TMA (04/12/2021 12:12 PM EST) BACTERIAL VAGINOSIS TEST NEGATIVE (NEG) [facility] Comment: No bacterial vaginosis targets by PCR detected in this patient's sample. Note: This assay uses real time boiling tub operator-mediated amplification (TMA) for detection and quantification of [...] sample. Note: This assay uses real time boiling tub operator-mediated amplification (TMA) for detection and quantification of ribosomal RNA from organisms associated with Marya species group (C. albicans, C. tropicalis, C. parapsilosis, C. dubliniensis), Marya glabrata, and Trichomonas vaginalis. Chlamydia Trachomatis, Amplified NEGATIVE (NEG) [facility] Comment: No Chlamydia Trachomatis RNA detected in this patient's sample (REFERENCE RANGE/NORMAL VALUE: NOT DETECTED) Note: This test uses boiling tub operator- mediated amplification method to detect rRNA from C. Trachomatis N.GONORRHOEAE AMP PROBE NEGATIVE (NEG) [facility] Comment: No Neisseria Gonorrhoeae RNA detected in this patient's sample (REFERENCE RANGE/NORMAL VALUE: NOT DETECTED) NOTE: This test uses boiling tub operator-mediated amplification method to detect rRNA from N.Gonorrhoeae. [...] without risk of sexual abuse. Consult the [facility] if needed. Contact phone number . Therapeutic failure or success cannot be determined with the Aptima Combo2 assay since nucleic acid may persist following appropriate antimicrobial therapy. The Centers for Disease Control and Prevention (CDC) recommends confirmatory retesting using culture or a different nucleic acid amplification test when positive results occur, if indicated. Testing performed or reported by [facility], a Service of [facility], [facility] [place] [address] Jemal Do MD, Resource Coordinator [facility]# [id number] Swab 04/12/2021 12:1 2 PM EST 04/12/2021 10:08 PM EST us Faith Peterson MD LAB MICROBIOLOGY - GENERAL ORDER [place] Final Result [facility] from Last 3 Months or Most Recently Relevant to Health Maintenance
== END 2025-03-05 10:56 | disposition home or self-care (01) ==
LOC: HO.HOSX 10:55
PROVIDERS: Visit Provider Orthopaedic Surgery
DX: S62.630D Displaced fracture of distal phalanx of right index finger, subsequent encounter for fracture with routine healing (principal); X58.XXXD Exposure to other specified factors, subsequent encounter
CPT/HCPCS: 73130

== ENCOUNTER 2025-03-05 15:07 | Outpatient (AMB) | payer BC, SELFPAY ==
[2025-03-05 15:32] VITALS: BMI 25.4
--- NOTE | 2025-03-05 15:32 | A.OFFVIS_ITS ---
Vital Signs 03/05/25 15:32 Height 5 ft Weight 130 lb BMI 25.4 Intake Visit Reasons: PO-RT IF CRPP vs ORIF 02/06/25 AR Intake Note: Rachell 24 yr old female presents today for her p/o visit S/P right index finger CRPP done with Dr. Black on 02/06/25. At her last visit, she was instructed to do pin site cleaning and do gentle ROM for her MCP and PIP joint. Dressing removed in office and updated xrays. We anticipate pin removal today. Allergies No Known Allergies Allergy (Verified 03/05/25 15:40) HPI HPI PO-RT IF CRPP vs ORIF 02/06/25 AR: Details: The patient is a 24-year-old jiydb-ppae-safaerew woman who returns status post right index finger distal phalanx CRPP, DOS 02/06/2025. She injured her finger in a dog leash. D.O. I 01/14/2025. She says she is doing well in her finger does not hurt. She has been performing pin site care at home and working on range of motion. [facility] Medical History Anxiety Depression Mild restricting type anorexia nervosa PTSD (post-traumatic stress disorder) Recurrent major depression-severe TBI (traumatic brain injury) Surgical History H/O wisdom tooth extraction Social History Household Members: Family Household Members Other:: uncle Housing: House Are you a primary healthcare insurance sales agent to a significant other at home: No Do you presently have visiting nurse or other home services: No Alcohol intake: current Alcohol intake frequency: holidays/special occasions only Comment: pt sleeping Patient Tobacco Use Status: Never used Tobacco Second Hand Smoke Exposure: No service: No Current occupational status: unemployed Sexual orientation: did not discuss. Physical Exam Vital Signs: BMI result Body Mass Index 25.4 Extrem Other: The patient was alert oriented and in no acute distress. Her pin sites were clean and dry with no erythema drainage or evidence of infection. She can bring her fingers to a fist and back into extension with very good range of motion at the index finger MCP and PIP joints. Cap refill brisk Radiographs: Three views of the right hand show satisfactory fracture alignment and position of the 2 K-wires. There is evidence of interval bony healing. Assessment & Plan Assessment & Plan (1) Fracture of distal phalanx of right index finger: Code(s): S62.630A - Displaced fracture of distal phalanx of right index finger, initial encounter for closed fracture Category: Medical Plan Assessment & Plan: 1. Right index finger distal phalanx fracture, S/P CRPP DOS: 02/06/25 DOI: 01/14/25 K-wires removed today 03/05/2025 The patient appears to be doing well post-operatively I educated her about the post-operative course Her 2 K-wires were removed today and she tolerated that well. We placed a new bandage and a volar splint that allows for PIP motion. She is going to work on range of motion exercises and can discontinue the splint in about 2 weeks. Follow up in 3-4 weeks for wmnhs-nw-eirhbu check. She may cancel this appointment if she is doing well. 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 Orders: Orders XR hand RT min 3V Today M79.641 - Pain in right hand Coding Level of Care Code Global (51909) Diagnoses Fracture of distal phalanx of right index finger S62.630A
--- OUTSIDE RECORDS SUMMARY | 2025-03-06 03:41 | XMS_ITS | Encounter Summary ---
Author Organization [facility] Address [address] [place] [address] Phone Care Team Providers Care Buckle Frame Shaper Name Role Phone Faith Peterson MD Primary Care Provider [phone] Encounter Details Date Type Department Care Team (Late st Contact Info) Description 11/24/2015 Documentation [facility] [place] [address] [place] [address] Family Medicine, Physician [address], [place] [address] Social History Tobacco Use Types Packs/Day Years [...] on filedocumented in this encounter Care Teams Buckle Frame Shaper Relationship Specialty Start Date End Date Faith Peterson MD [address] [place] [address] PCP - General Pediatrics 11/28/18 11/21/22 documented as of this encounter
--- OUTSIDE RECORDS SUMMARY | 2025-03-06 03:41 | XMS_ITS | Encounter Summary ---
Author Organization [facility] Address [address] [place] [address] Phone Care Team Providers Care Stripper And Opaquer Apprentice Name Role Phone Faith Peterson MD Primary Care Provider [phone] Encounter Details Date Type Department Care Team (Late st Contact Info) Description 03/31/2015 [place]ation [facility] [place] [address] [place] [address] Family Medicine, Physician [address], [place] [address] Social History Tobacco Use Types Packs/Day Years [...] on filedocumented in this encounter Care Teams Stripper And Opaquer Apprentice Relationship Specialty Start Date End Date Faith Peterson MD [address] [place] [address] PCP - General Pediatrics 11/28/18 11/21/22 documented as of this encounter
--- OUTSIDE RECORDS SUMMARY | 2025-03-06 03:41 | XMS_ITS | Encounter Summary ---
Author Organization [facility] Address [address] [place] [address] Phone Care Team Providers Care Eyelet Operator Name Role Phone Faith Peterson MD Primary Care Provider [phone] Encounter Details Date Type Department Care Team (Late st Contact Info) Description 02/04/2013 Document[place] [facility] [facility] [place] [address] [place] [address] Family Medicine, Physician [address] [place], [place] [address] Social History Tobacco Use Types Packs/Day Years [...] on filedocumented in this encounter Care Teams Eyelet Operator Relationship Specialty Start Date End Date Faith Peterson MD [address] [place] [address] PCP - General Pediatrics 11/28/18 11/21/22 documented as of this encounter
--- OUTSIDE RECORDS SUMMARY | 2025-03-06 03:41 | XMS_ITS | Encounter Summary ---
Author Organization [facility] Address [address] [place] [address] Phone Care Team Providers Care Cma Name Role Phone Faith Peterson MD Primary Care Provider [phone] Encounter Details Date Type Department Care Team (Late st Contact Info) Description 12/01/2016 Conversion Encounter [facility] [place] [address] [place] [address] Social History Tobacco Use Types Packs/Day Years [...] on filedocumented in this encounter Care Teams Cma Relationship Specialty Start Date End Date Faith Peterson MD [address] [place] [address] PCP - General Pediatrics 11/28/18 11/21/22 documented as of this encounter
--- OUTSIDE RECORDS SUMMARY | 2025-03-06 03:41 | XMS_ITS | Clinical Summary ---
Author Organization [facility] Address [address] [place] [address] Phone Care Team Providers Care Elementary Ell Teacher Name Role Phone Unavailable Primary Care Provider [...] Completed 12/02/2019, 11/29/2018 Procedures * Due to [place] [employer] law, this organization might not be sharing sensitive test results. Procedure Name Priority Date/Time Associated Diagnosis Comments SURESWAB (ADV) VAGINITIS PLUS, TMA Routine 04/12/2021 12:12 PM EST Vaginal discharge from Last 3 Months or Most Recently Relevant to Health Maintenance Results * Due to [place] [employer] law, this organization might not be sharing sensitive test results. * SureSwab (Adv) Vaginitis Plus, TMA (04/12/2021 12:12 PM EST) BACTERIAL VAGINOSIS TEST NEGATIVE (NEG) [facility] Comment: No bacterial vaginosis targets by PCR detected in this patient's sample. Note: This assay uses real time tape duplicator-mediated amplification (TMA) for detection and quantification of [...] sample. Note: This assay uses real time tape duplicator-mediated amplification (TMA) for detection and quantification of ribosomal RNA from organisms associated with Marya species group (C. albicans, C. tropicalis, C. parapsilosis, C. dubliniensis), Marya glabrata, and Trichomonas vaginalis. Chlamydia Trachomatis, Amplified NEGATIVE (NEG) [facility] Comment: No Chlamydia Trachomatis RNA detected in this patient's sample (REFERENCE RANGE/NORMAL VALUE: NOT DETECTED) Note: This test uses tape duplicator- mediated amplification method to detect rRNA from C. Trachomatis N.GONORRHOEAE AMP PROBE NEGATIVE (NEG) [facility] Comment: No Neisseria Gonorrhoeae RNA detected in this patient's sample (REFERENCE RANGE/NORMAL VALUE: NOT DETECTED) NOTE: This test uses tape duplicator-mediated amplification method to detect rRNA from N.Gonorrhoeae. [...] without risk of sexual abuse. Consult the [facility] if needed. Contact phone number . Therapeutic failure or success cannot be determined with the Aptima Combo2 assay since nucleic acid may persist following appropriate antimicrobial therapy. The Centers for Disease Control and Prevention (CDC) recommends confirmatory retesting using culture or a different nucleic acid amplification test when positive results occur, if indicated. Testing performed or reported by [facility], a Service of [facility], [facility] [place] [address] Jemal Do MD, Dough Sheeter [facility]# [id number] Swab 04/12/2021 12:1 2 PM EST 04/12/2021 10:08 PM EST us Faith Peterson MD LAB MICROBIOLOGY - GENERAL ORDER ALTON Final Result [facility] from Last 3 Months or Most Recently Relevant to Health Maintenance
== END 2025-03-05 16:19 | disposition home or self-care (01) ==
LOC: HO.HOS 15:08
PROVIDERS: Visit Provider Orthopaedic Surgery
DX: S62.630A Displaced fracture of distal phalanx of right index finger, initial encounter for closed fracture (principal)
CPT/HCPCS: 99024

== ENCOUNTER → 2025-03-05 15:13 | Outpatient (BNV) | payer BC, SELFPAY | PROVIDERS: Visit Provider Radiology Diagnostic Radiology | DX: M79.641 Pain in right hand (principal) | CPT/HCPCS: 73130 ==

== ENCOUNTER 2025-03-31 11:26 | Outpatient (AMB) | payer BC, SELFPAY ==
[2025-03-31 11:35] VITALS: BMI 25.4
--- NOTE | 2025-03-31 11:35 | A.OFFVIS_ITS ---
Vital Signs 03/31/25 11:35 Height 5 ft Weight 130 lb BMI 25.4 Intake Visit Reasons: PO-RT IF CRPP vs ORIF 02/06/25 AR Intake Note: Rachell 24 yr old female presents today for her p/o visit S/P right index finger CRPP done with Dr. Black on 02/06/25. At her last visit patient was advise to continue to work on her ROM. States she is doing better and is working on her in dex finger. States she is still a little limited with her index finger to touch her palm. Allergies No Known Allergies Allergy (Verified 03/31/25 11:37) HPI HPI PO-RT IF CRPP vs ORIF 02/06/25 AR: Details: The patient is a 24-year-old [id number] woman who returns status post right index finger distal phalanx CRPP, DOS 02/06/2025. She injured her finger in a dog leash. D.O. I 01/14/2025. K-wires were removed on 03/05/2025 and she has been working on range of motion exercises at home. She says that she is doing well and has no pain. Her range of motion is improving but she notices that the D IP joint for the right index finger is not the same as the left index finger which has a of range of motion of the about 0-90 degrees. [facility] Medical History Anxiety Depression Mild restricting type anorexia nervosa PTSD (post-traumatic stress disorder) Recurrent major depression-severe TBI (traumatic brain injury) Surgical History H/O wisdom tooth extraction Social History Household Members: Family Household Members Other:: uncle Housing: House Are you a primary children's zoo caretaker to a significant other at home: No Do you presently have visiting nurse or other home services: No Alcohol intake: current Alcohol intake frequency: holidays/special occasions only Comment: pt sleeping Patient Tobacco Use Status: Never used Tobacco Second Hand Smoke Exposure: No service: No Current occupational status: unemployed Sexual orientation: did not discuss. Physical Exam Vital Signs: BMI result Body Mass Index 25.4 Extrem Other: The patient was alert oriented and in no acute distress. Regarding her right index finger, the pin sites have healed with no erythema drainage or evidence of infection. She can now make a fist and fully extend all of her digits including the index finger. Indeed, while the range of motion of the left index finger D IP joint is from 0- 90 degrees, the range of motion of the right index finger D IP joint is from about 0-50 degrees. Fracture site completely nontender The patient inquired about the fact that her right index finger is slightly more red than the other digits. She does have a small amount of hyperemia in the index finger which I think is more visible because she is very fair-skinned. Again the finger is nontender and with no evidence of infection. Assessment & Plan Assessment & Plan (1) Fracture of distal phalanx of right index finger: Code(s): S62.630A - Displaced fracture of distal phalanx of right index finger, initial encounter for closed fracture Category: Medical Plan Assessment & Plan: 1. Right index finger distal phalanx fracture, S/P CRPP DOS: 02/06/25 DOI: 01/14/25 K-wires removed 03/05/2025 The patient appears to be doing very well post-operatively I educated her about the postop course. I talked about the fact that she does have some mild hyperemia in the index finger which I believe she can see more so because she is so fair skinned. I explained that this is not uncommon and part of the healing process. She has no hypersensitivity. She will continue to work on some gentle range of motion exercises at home. At this point she can resume all activities without restrictions. 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 Coding Level of Care Code Global (40592) Diagnoses Fracture of distal phalanx of right index finger S62.630A
== END 2025-03-31 13:21 | disposition home or self-care (01) ==
LOC: HO.HOS 11:26
PROVIDERS: Visit Provider Orthopaedic Surgery
DX: S62.630A Displaced fracture of distal phalanx of right index finger, initial encounter for closed fracture (principal)
CPT/HCPCS: 99024